=== PATIENT | male | born 1965 | race Caucasian/White ===

== ENCOUNTER 2017-03-29 02:08 | Emergency (ER) | payer MEDICARE, MEDICAID ==
--- NOTE | 2017-03-29 09:01 | RAD ---
RADIOGRAPH ABDOMEN 1 VIEW: Date: Time: 0519 hours HISTORY: 52-year-old male with diarrhea. COMPARISON: 03/15/17. FINDINGS: There is a large amount of bowel gas, especially throughout the nondilated colon. It is uncertain wh ether some of the air-filled bowel loops just to the left of midline represent small bowel loops sup erimposed on colon. It is unlikely that there is small bowel dilation. There is a slightly greater a mount of bowel gas on the current study compared to the previous. The stomach is decompressed on the current study, unlike the previous study. No other interval change. IMPRESSION: Nonspecific bowel gas pattern without evidence of obstruction. POS: [facility]
== END 2017-03-29 06:20 | disposition home or self-care (01) ==
LOC: ERS 02:08
DX: R19.5 Other fecal abnormalities (principal); E66.9 Obesity, unspecified; F17.210 Nicotine dependence, cigarettes, uncomplicated
CPT/HCPCS: 74000

== ENCOUNTER 2017-04-20 21:36 | Observation (INO) | payer MEDICARE, MEDICAID ==
[2017-04-20 22:25] LABS: Bilirubin Negative (Negative); Blood, Urine Negative (Negative); Glucose, Urine (Dipstick) Negative (Negative); Ketone, Urine Negative (Negative); Nitrite Positive (Negative); Protein, Urine (Dipstick) Negative (Neg-Trace)
[2017-04-20 22:27] LABS: Bacteria/HPF 1+ HPF (None Seen); Hyaline Casts/LPF 0-3 HYALINE CAST LPF (0-3 Hyaline); RBC/HPF None Seen HPF (0-3); Squamous Epithelial 0-3 HPF (0-3); WBC/HPF 21-50 HPF (0-3)
[2017-04-20 23:01] LABS: #Eosinphils 0.5 thou/uL (0.0-0.7); #Lymphocytes 1.7 thou/uL (1.20-3.40); %Basophils 0.4 % (0.0-1.0); %Eosinophils 4.7 % (0.0-10.0); %Lymphocytes 17.1 % (21.0-51.0); %Monocytes 9.4 % (0.0-10.0); Hematocrit 38.5 % (42.0-52.0); Mean Platelet Volume 6.4 fL (7.4-10.4); Red Blood Cell (RBC) Count 4.36 mill/uL (4.70-6.10); White Blood Cell (WBC) Count 10.2 thou/uL (4.8-10.8)
[2017-04-20 23:25] LABS: ALT (SGPT) 12 U/L (8-55); AST (SGOT) 13 U/L (5-34); Alkaline Phosphatase 73 U/L (40-150); Anion Gap 10 mmol/L (10-20); BUN (Urea Nitrogen) 12 mg/dL (8.4-25.7); Bilirubin, Total 0.5 mg/dL (0.2-1.2); Calc. Creatinine Clearance 0 mL/min (70-130); Calcium 8.9 mg/dL (7.8-10.44); Carbon Dioxide 29 mmol/L (22-29); Chloride 102 mmol/L (98-107); Estimated GFR-MDRD Greater than 90; Globulin 3.1 g/dL (2.4-3.5); Protein, Total 6.8 g/dL (6.0-8.3)
[2017-04-20 23:28] LABS: Troponin I Less than 0.010 ng/mL (< 0.028)
[2017-04-21] MEDS ORDERED: Regadenoson 0.4 MG/5 ML SYRINGE ONE (01:13)
[2017-04-21] MEDS ORDERED: cefTRIAXone\\ROCEPHIN 1 GM VIAL ONE (01:18)
[2017-04-21 01:37] LABS: Troponin I Less than 0.010 ng/mL (< 0.028)
[2017-04-21] MEDS ORDERED: Acetaminophen 325 MG TAB PO PRN (02:20)
[2017-04-21] MEDS ORDERED: Nitroglycerin 0.4 MG TAB (25 Tab Bottle) SL PRN (02:20)
[2017-04-21] MEDS ORDERED: Mag-Al 1200 mg/1200 mg/30 ML UDCUP PO PRN (02:20)
[2017-04-21] MEDS ORDERED: Loperamide HCl 2 MG CAP PO PRN (02:20)
[2017-04-21] MEDS ORDERED: Milk Of Magnesia 30 ML UDCUP PO PRN (02:20)
[2017-04-21] MEDS ORDERED: Loratadine 10 MG TAB PO PRN (02:20)
[2017-04-21] MEDS ORDERED: Zolpidem Tartrate 5 MG TAB PO PRN (02:20)
[2017-04-21] MEDS ORDERED: hydrALAZINE 20 MG/ML VIAL SLOW IVP PRN (02:20)
[2017-04-21] MEDS ORDERED: Ondansetron HCl/PF 4 MG/2 ML Vial IVP PRN (02:20)
[2017-04-21] MEDS ORDERED: Senokot 8.6 MG TAB PO PRN (02:20)
[2017-04-21] MEDS ORDERED: Eucerin (Mineral Oil/Petrolatum,White) 30 gm Jar TOP PRN (02:20)
[2017-04-21] MEDS ORDERED: Sodium Chloride 0.65% Nasal 44 ML BOT EA NARE PRN (02:20)
[2017-04-21] MEDS ORDERED: Diabetic Tussin 200 MG/10 ML UDCUP PO PRN (02:20)
[2017-04-21] MEDS ORDERED: Artificial Tears 18 DROP/0.9 ML EA EYE PRN (02:20)
[2017-04-21] MEDS ORDERED: Ondansetron ODT 4 MG TAB PO PRN (02:20)
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
[2017-04-21 03:01] VITALS: BMI 42.6
[2017-04-21 04:53] LABS: #Eosinphils 0.4 thou/uL (0.0-0.7); #Lymphocytes 1.5 thou/uL (1.20-3.40); #Monocytes 0.7 thou/uL (0.11-0.59); #Neutrophils 4.3 thou/uL (1.40-6.50); %Basophils 0.2 % (0.0-1.0); %Eosinophils 5.9 % (0.0-10.0); %Lymphocytes 21.7 % (21.0-51.0); %Monocytes 10.1 % (0.0-10.0); Hematocrit 35.8 % (42.0-52.0); Mean Platelet Volume 6.9 fL (7.4-10.4); Red Blood Cell (RBC) Count 4.06 mill/uL (4.70-6.10); White Blood Cell (WBC) Count 6.9 thou/uL (4.8-10.8)
[2017-04-21 05:09] LABS: Anion Gap 8 mmol/L (10-20); BUN (Urea Nitrogen) 10 mg/dL (8.4-25.7); Calc. Creatinine Clearance 236 mL/min (70-130); Calcium 8.6 mg/dL (7.8-10.44); Carbon Dioxide 33 mmol/L (22-29); Chloride 100 mmol/L (98-107); Estimated GFR-MDRD Greater than 90
[2017-04-21 05:13] LABS: Troponin I Less than 0.010 ng/mL (< 0.028)
--- NOTE | 2017-04-21 07:38 | CT ---
PRELIMINARY REPORT/[facility]/EMERGENCY AFTER HOURS PROCEDURE: EXAM: CT Angiography Chest With Intravenous Contrast CLINICAL HISTORY: 52 years old, male; Pain; Chest pain; Patient HX: Elevated d-dimer; M52 presented to ed C/O syncope episodes (4x) today, with the last episode being around 1700. Ems was called by pt's friend after "b lacking out. ". Pt reports feeling some cp and SOB with the dizzy episodes. Pt describes cp radiates to pt's r arm. Pt denies having symptoms previously. Pt reports he usually gets around by a wheelchair. Pt reports having normal bm's. TECHNIQUE: Axial computed tomographic angiography images of the chest with intravenous contrast using pulmonary embolism protocol. CONTRAST: 95 mL of ISOVUE 370 administered intravenously. COMPARISON: No relevant prior studies available. FINDINGS: Pulmonary arteries: No pulmonary embolism. Aorta: No acute findings. Lungs: Normal. Pleural space: Normal. No significant effusion. No pneumothorax. Heart: Atherosclerotic disease of the coronary arteries. Bones/joints: Multilevel thoracic spine degenerative changes. No acute fracture. No dislocation. Soft tissues: Normal. Lymph nodes: Normal. IMPRESSION: 1. No pulmonary embolism. 2. Incidental/non-acute findings are described above. Thank you for allowing us to participate in the care of your patient. Dictated and Authenticated by: Daniel Fagan MD 04/21/2017 1:15 AM Central Time ([place] \\T\\ [place]) FINAL REPORT CT PULMONARY ANGIOGRAM WITH IV CONTRAST AND 3D POSTPROCESSING: I agree with the preliminary report given by Dr. Daniel Fagan of [facility]. POS: [facility]
[2017-04-21] MEDS: HYDROcodone/Acetaminophen 5/325 mg Tablet PO PRN ×2 (09:11→16:16)
--- NOTE | 2017-04-21 09:25 | PDOC.EVN ---
Event Note - Event Note Event Note: Chart reviewed. Pt seen. Pt reports chest discomfort prior to syncopal episode. Discussed with pt re: need to rule out cardiac causes, pt agreeable for stress testing. Check 2D echo.
--- NOTE | 2017-04-21 12:49 | NM ---
CARDIAC SPECT: CLINICAL HISTORY: 52-year-old male with chest pain and hypertension. Smoker. TECHNIQUE: A stress-only myocardial perfusion scan was performed following the intravenous administration of 33 mCi technetium-99m sestamibi. Pharmacologic stress with Lexiscan was monitored and interpreted by Debby Schaefer. FINDINGS: Homogeneous tracer distribution is seen in the myocardial segments on the post stress images. GATED SPECT LVEF: 61%. WALL MOTION EXAM: Normal. IMPRESSION: Normal post stress myocardial perfusion scan. POS: [facility]
[2017-04-21] MEDS ORDERED: ISOVUE-370 76%-LOCM 1 ML ONE (12:59)
[2017-04-22] MEDS ORDERED: cefTRIAXone\\ROCEPHIN 1 GM, Admixture Fee 1 EACH in Sodium Chloride 0.9% 100 ML IVPB SCH (01:00)
[2017-04-22] MEDS ORDERED: Diphenoxylate HCl/Atropine Tablet PO PRN (08:33)
[2017-04-22] MEDS ORDERED: Fluticasone Propionate Nasal Spray 16 gm Bottle NASAL PRN ×2 (08:33→08:44)
[2017-04-22] MEDS ORDERED: Loratadine 10 MG TAB PO PRN (08:33)
--- NOTE | 2017-04-22 08:38 | PDOC.PN ---
- Subjective Encounter Start Date: 04/22/17 Encounter Start Time: 08:36 Mr. Lock does not have any complaints. He denies any chest pain this morning. He denies feeling dizzy or lightheaded. - Objective Resuscitation Status: Resuscitation Status FULL:Full Resuscitation MAR Reviewed: Yes Vital Signs & Weight: Vital Signs (12 hours) Temp Pulse Resp BP Pulse Ox 04/22/17 04:00 98.5 F 73 20 122/57 L 96 04/22/17 00:00 98.1 F 65 20 130/66 95 Weight Weight 323 lb 14.4 oz I&O: 04/21/17 04/22/17 04/23/17 06:59 06:59 06:59 Intake Total 240 2075 Output Total 1700 3000 Balance -1460 -925 Result Diagrams: 04/21/17 04:02 04/21/17 04:02 Phys Exam - Physical Examination HEENT: PERRLA Respiratory: no wheezing, no rales, no rhonchi, clear to auscultation bilateral Cardiovascular: RRR, no significant murmur, no rub Gastrointestinal: soft, non-tender, positive bowel sounds Musculoskeletal: edema present + erythema of his lower extremities, no warmth Dx/Plan (1) Syncope Code(s): R55 - SYNCOPE AND COLLAPSE Status: Acute (2) Hypertension Code(s): I10 - ESSENTIAL (PRIMARY) HYPERTENSION Status: Chronic (3) Morbid obesity with BMI of 40.0-44.9, adult Code(s): E66.01 - MORBID (SEVERE) OBESITY DUE TO EXCESS CALORIES; Z68.41 - BODY MASS INDEX (BMI) 40.0-44.9, ADULT Status: Chronic (4) Neurogenic bladder Code(s): N31.9 - NEUROMUSCULAR DYSFUNCTION OF BLADDER, UNSPECIFIED Status: Chronic (5) Paraplegia Code(s): G82.20 - PARAPLEGIA, UNSPECIFIED Status: Chronic (6) Venous insufficiency of both lower extremities Code(s): I87.2 - VENOUS INSUFFICIENCY (CHRONIC) (PERIPHERAL) Status: Chronic - Plan * Syncope- ? etiology probably from orhtostatic hypotension * Stress test and CTA were both negative * Still awaiting Echo results * Will check carotid dopplers * Home this evening if Echo and carotids are normal * Reconcile home medications .
[2017-04-22] MEDS ORDERED: Furosemide 80 MG TAB PO SCH ×2 (09:00)
[2017-04-22] MEDS ORDERED: Baclofen 10 MG TAB PO SCH (09:00)
[2017-04-22] MEDS ORDERED: Potassium Chloride 10 MEQ TAB PO SCH ×2 (09:00)
[2017-04-22] MEDS ORDERED: Spironolactone 25 MG TAB PO SCH ×2 (09:00)
[2017-04-22] MEDS ORDERED: BACLOFEN 10 MG PO SCH (09:00)
[2017-04-22] MEDS ORDERED: Lubiprostone 8 MCG CAP PO SCH ×2 (09:00)
[2017-04-22] MEDS ORDERED: Saccharomyces boulardii 250 MG CAP PO SCH (09:00)
[2017-04-22] MEDS ORDERED: Gabapentin 300 MG CAP PO SCH (09:00)
[2017-04-22] MEDS ORDERED: MAGNESIUM OXIDE PO SCH (09:00)
[2017-04-22] MEDS ORDERED: Magnesium Oxide 400 MG TAB PO SCH (09:00)
[2017-04-22 11:51] VITALS: BP 108/55; TEMP 97.3
[2017-04-22] MEDS: HYDROcodone/Acetaminophen 5/325 mg Tablet PO PRN (12:37)
--- NOTE | 2017-04-22 12:52 | ULT ---
BILATERAL CAROTID DUPLEX ULTRASOUND: History: Syncope. Technique: Grayscale, color flow, and spectral doppler imaging of the extracranial carotid arteries performed bilaterally. FINDINGS: No plaque formation is seen or significant intimal wall thickening is seen on either side. The peak systolic velocity in the right ICA measures 107 cm/sec and end diastolic velocity of 28 cm/ sec. ICA/CCA ratio is 0.9. The peak systolic velocity in the left ICA measures 85 cm/sec and end diastolic velocity of 19 cm/se c. ICA/CCA ratio is 0.78. Flow in both vertebral arteries is antegrade. IMPRESSION: No evidence of hemodynamically significant stenosis. POS: [facility]
[2017-04-22] MEDS ORDERED: Mirtazapine 30 MG TAB PO SCH ×2 (21:00)
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
--- NOTE | 2017-05-02 17:55 | EKG ---
Test Reason : Blood Pressure : / mmHG Vent. Rate : 070 BPM Atrial Rate : 070 BPM P-R Int : 156 ms QRS Dur : 156 ms QT Int : 428 ms P-R-T Axes : 036 -49 034 degrees QTc Int : 462 ms Normal sinus rhythm Right bundle branch block Left anterior fascicular block Bifascicular block Septal infarct , age undetermined Abnormal ECG Confirmed by DEE Storm, AIMEE ([id number]), photographic editor MARIANN NEGRETE ([id number]) on 05/02/2017 5:55:15 PM Referred By: Confirmed By:AIMEE PRICE M.D.
== END 2017-04-22 16:03 | disposition home or self-care (01) ==
LOC: ERS 21:36 → INTOOBSV 04-21 01:00 → 2NO 04-21 01:00
PROVIDERS: ADMIT Internal Medicine; ATTEND Internal Medicine
DX: R55 Syncope and collapse (principal); T14.8XXA Other injury of unspecified body region, initial encounter; G82.20 Paraplegia, unspecified; V89.2XXA Person injured in unspecified motor-vehicle accident, traffic, initial encounter; N31.9 Neuromuscular dysfunction of bladder, unspecified; I10 Essential (primary) hypertension; E66.01 Morbid (severe) obesity due to excess calories; I37.1 Nonrheumatic pulmonary valve insufficiency; I38 Endocarditis, valve unspecified; I87.2 Venous insufficiency (chronic) (peripheral); K21.9 Gastro-esophageal reflux disease without esophagitis; E53.8 Deficiency of other specified B group vitamins; E55.9 Vitamin D deficiency, unspecified; F41.9 Anxiety disorder, unspecified; F17.210 Nicotine dependence, cigarettes, uncomplicated; R07.9 Chest pain, unspecified; K59.09 Other constipation; G62.9 Polyneuropathy, unspecified; F31.9 Bipolar disorder, unspecified; Z68.41 Body mass index [BMI] 40.0-44.9, adult; Z79.899 Other long term (current) drug therapy; Z99.3 Dependence on wheelchair; Z96.0 Presence of urogenital implants; Z98.890 Other specified postprocedural states; Z87.440 Personal history of urinary (tract) infections; Z82.49 Family history of ischemic heart disease and other diseases of the circulatory system
CPT/HCPCS: 71275; 78452; 80048; 80053; 82553; 83880; 84484 ×3; 85025 ×2; 85379; 93005; 93017; 93306; 93880; 96361; 96365; 96366; 99285; A9500; G0378; 36415; 81003; 81015; A4216; J0696; J2785; J7050; Q0162

== ENCOUNTER 2017-05-12 18:07 | Emergency (ER) | payer MEDICARE, MEDICAID | END 2017-05-12 21:50 | LOC: ERS 18:07 | DX: T83.038A Leakage of other urinary catheter, initial encounter (principal); G82.20 Paraplegia, unspecified; F17.210 Nicotine dependence, cigarettes, uncomplicated | CPT/HCPCS: 99284 ==

== ENCOUNTER 2017-05-30 19:54 | Emergency (ER) | payer MEDICARE, MEDICAID ==
[2017-05-30 20:30] LABS: Bilirubin Negative (Negative); Blood, Urine Moderate (Negative); Glucose, Urine (Dipstick) Negative (Negative); Ketone, Urine Negative (Negative); Nitrite Positive (Negative); Protein, Urine (Dipstick) Negative (Neg-Trace)
[2017-05-30 20:33] LABS: Bacteria/HPF 4+ HPF (None Seen); Squamous Epithelial 0-3 HPF (0-3)
[2017-05-30 20:44] LABS: Hyaline Casts/LPF 0-3 HYALINE CAST LPF (0-3 Hyaline)
[2017-05-30 21:11] LABS: #Eosinphils 0.6 thou/uL (0.0-0.7); #Lymphocytes 1.9 thou/uL (1.20-3.40); #Monocytes 0.9 thou/uL (0.11-0.59); %Basophils 0.4 % (0.0-1.0); %Lymphocytes 22.9 % (21.0-51.0); %Monocytes 10.4 % (0.0-10.0); Hematocrit 39.3 % (42.0-52.0); Mean Platelet Volume 6.3 fL (7.4-10.4); Red Blood Cell (RBC) Count 4.35 mill/uL (4.70-6.10); White Blood Cell (WBC) Count 8.4 thou/uL (4.8-10.8)
[2017-05-30] MEDS ORDERED: cefTRIAXone\\ROCEPHIN 500 MG VIAL ONE ×2 (21:15→21:16)
[2017-05-30] MEDS ORDERED: Lidocaine 1% PF 5 ML VIAL ONE (21:15)
[2017-05-30 21:28] LABS: Lactic Acid - Sepsis 1.2 mmol/L (0.5-2.2)
[2017-05-30 21:32] LABS: ALT (SGPT) 11 U/L (8-55); AST (SGOT) 13 U/L (5-34); Alkaline Phosphatase 83 U/L (40-150); Anion Gap 11 mmol/L (10-20); BUN (Urea Nitrogen) 16 mg/dL (8.4-25.7); Bilirubin, Total 0.3 mg/dL (0.2-1.2); Calc. Creatinine Clearance 0 mL/min (70-130); Carbon Dioxide 28 mmol/L (22-29); Chloride 103 mmol/L (98-107); Estimated GFR-MDRD Greater than 90; Globulin 3.1 g/dL (2.4-3.5); Protein, Total 6.8 g/dL (6.0-8.3)
--- NOTE | 2017-05-30 22:35 | RAD ---
ACUTE ABDOMINAL SERIES 05/30/17 INDICATION: Constipation. COMPARISON: None. FINDINGS: The lungs are clear. There is mild cardiomegaly. No pleural effusion or pneumothorax is evident. Mario l gas pattern is nonspecific but without evidence of obstruction. There is a prominent amount of philly ined stool within the colon and rectum. There is scattered degenerative and osteoarthritic change. Th ere is mild thoracolumbar scoliosis. IMPRESSION: Prominent amount of retained stool. POS: [facility]
== END 2017-05-30 23:06 | disposition home or self-care (01) ==
LOC: ERS 19:54
DX: N39.0 Urinary tract infection, site not specified (principal); K59.00 Constipation, unspecified; E66.9 Obesity, unspecified; F17.210 Nicotine dependence, cigarettes, uncomplicated
CPT/HCPCS: 36415; 74022; 80053; 81003; 81015; 83605; 85025; 87077; 87086; 87186; 96372; J0696; J2001

== ENCOUNTER 2017-06-13 20:24 | Inpatient (IN) | payer MEDICARE, MEDICAID ==
--- NOTE | 2017-06-13 23:00 | RAD ---
RADIOGRAPH CHEST 1 VIEW: Date: 06/13/17 Time: 10:05 p.m. HISTORY: 52-year-old male with fever. COMPARISON: 05/30/17 FINDINGS: There is a subtle, small, patchy ill-defined nodular opacity measuring approximately 2 to 3 cm in siz e, at the left lower lung zone, close to the left hemidiaphragm, which was not present on the prior s tudy. The rest of the lungs are essentially clear. There is cardiomegaly without pulmonary edema. No pneumothorax. Lateral costophrenic angles are sharp. Upper lobe pulmonary vessels are prominent. IMPRESSION: 1. Cardiomegaly without pulmonary edema. 2. Small patchy nodular pulmonary opacity at the left base. This is nonspecific. There is a poss ibility that this could represent a small, very early pneumonia. Therefore, followup is recommended. RED [] POS: [facility]
[2017-06-13 23:22] LABS: #Eosinphils 0.6 thou/uL (0.0-0.7); #Lymphocytes 1.9 thou/uL (1.20-3.40); #Monocytes 0.9 thou/uL (0.11-0.59); #Neutrophils 4.8 thou/uL (1.40-6.50); %Basophils 0.3 % (0.0-1.0); %Lymphocytes 23.4 % (21.0-51.0); %Monocytes 10.4 % (0.0-10.0); Hematocrit 38.4 % (42.0-52.0); Mean Platelet Volume 6.4 fL (7.4-10.4); Red Blood Cell (RBC) Count 4.17 mill/uL (4.70-6.10); White Blood Cell (WBC) Count 8.2 thou/uL (4.8-10.8)
[2017-06-13 23:27] LABS: Lactic Acid - Sepsis 1.1 mmol/L (0.5-2.2)
[2017-06-13 23:31] LABS: ALT (SGPT) 12 U/L (8-55); AST (SGOT) 12 U/L (5-34); Alkaline Phosphatase 78 U/L (40-150); Anion Gap 11 mmol/L (10-20); BUN (Urea Nitrogen) 16 mg/dL (8.4-25.7); Bilirubin, Total 0.3 mg/dL (0.2-1.2); Calc. Creatinine Clearance 0 mL/min (70-130); Calcium 8.7 mg/dL (7.8-10.44); Carbon Dioxide 30 mmol/L (22-29); Chloride 104 mmol/L (98-107); Estimated GFR-MDRD Greater than 90; Lipase 32 U/L (8-78); Protein, Total 6.6 g/dL (6.0-8.3)
[2017-06-13] MEDS ORDERED: Ondansetron HCl/PF 4 MG/2 ML Vial ONE (23:41)
[2017-06-13] MEDS ORDERED: Morphine 4 MG/ML VIAL ONE (23:41)
[2017-06-13] MEDS ORDERED: Piperacillin/Tazobactam 4.5 GM in Sodium Chloride 0.9% 100 ML IVPB SCH (23:45)
[2017-06-14] MEDS ORDERED: Ondansetron HCl/PF 4 MG/2 ML Vial IVP PRN (00:07)
--- NOTE | 2017-06-14 00:07 | PDOC.EVN ---
Event Note - Event Note Event Note: [id number] H&p Dictated 1. Scrotal cellulitis 2. HTN 3. H/O Depreesion and anxiety plan: see orders
[2017-06-14 05:13] VITALS: BMI 38.5
[2017-06-14 05:31] LABS: Anion Gap 9 mmol/L (10-20); BUN (Urea Nitrogen) 14 mg/dL (8.4-25.7); Calc. Creatinine Clearance 225 mL/min (70-130); Calcium 8.2 mg/dL (7.8-10.44); Carbon Dioxide 28 mmol/L (22-29); Chloride 105 mmol/L (98-107); Estimated GFR-MDRD Greater than 90
[2017-06-14 05:34] LABS: #Eosinphils 0.7 thou/uL (0.0-0.7); #Lymphocytes 1.9 thou/uL (1.20-3.40); #Monocytes 0.8 thou/uL (0.11-0.59); #Neutrophils 5.1 thou/uL (1.40-6.50); %Basophils 0.4 % (0.0-1.0); %Eosinophils 8.2 % (0.0-10.0); %Lymphocytes 22.1 % (21.0-51.0); Hematocrit 35.7 % (42.0-52.0); Mean Platelet Volume 6.7 fL (7.4-10.4); Red Blood Cell (RBC) Count 3.85 mill/uL (4.70-6.10); White Blood Cell (WBC) Count 8.4 thou/uL (4.8-10.8)
[2017-06-14] MEDS ORDERED: Vancomycin HCl 1.75 GM in Sodium Chloride 0.9% 500 ML IVPB SCH (06:00)
[2017-06-14] MEDS ORDERED: Piperacillin/Tazobactam 3.375 GM in Sodium Chloride 0.9% 100 ML IVPB SCH (06:00)
--- NOTE | 2017-06-14 07:40 | HP ---
DATE OF ADMISSION: 06/13/2017 CHIEF COMPLAINT: Scrotal pain. HISTORY OF PRESENT ILLNESS: The patient is a 52-year-old male with past medical history of chronic s uprapubic catheter, morbid obesity, chronic lymphedema, neurogenic bladder, hypertension, GERD, chron ic paraplegia, now came to the ER because of scrotal pain. The patient stated he started having pain a few days back. Scrotal pain is burning kind of pain, 6/10, no aggravating or alleviating factors. There is some redness on the scrotal area. Denies any fever, denies any chills. Pain persisted, so he came to the ER. The patient also states he has chronic suprapubic catheter. Denies any chest pain, denies any trouble breathing, denies nausea, denies vomiting, denies diarrhea. PAST MEDICAL HISTORY: Hernia repair, suprapubic catheter, cystoscopy. PAST SURGICAL HISTORY: As above. MEDICATIONS: Reviewed. ALLERGIES: No known drug allergies. FAMILY HISTORY: Positive for GA. SOCIAL HISTORY: Denies smoking at this time. Denies alcohol, occasional smoking. Denies any drugs. REVIEW OF SYSTEMS: Constitutional: Denies any fever, denies any chills. Eyes: Denies any vision p roblems. Ears: Denies any hearing problems. Neck: Denies any neck pain. Cardiovascular System: Denies any chest pain, denies any palpitations. Respiratory System: Denies any cough, denies sputum production. Gastrointestinal: Denies any nausea, vomiting. Genitourinary: Positive for suprapubic catheter, positive for scrotal pain. Integumentary: Positiv e for scrotal erythema. Musculoskeletal: Positive for bilateral lower extremity edema. All other r eview of systems are reviewed and are negative. PHYSICAL EXAMINATION: CONSTITUTIONAL/VITAL SIGNS: At the time of H&P performed, blood pressure is 130/70, afebrile, pulse ox 97%. GENERAL: The patient appears tired. HEENT: Anterior nares patent. Nose normal. Ears normal. Teeth intact. Tongue is moist. NECK: Supple, no JVD. CARDIOVASCULAR SYSTEM: S1, S2 present. Regular rate and rhythm. No murmurs, no rubs, no gallops. RESPIRATORY SYSTEM: No wheezing, no rhonchi. Breath sounds present bilaterally. GASTROINTESTINAL: Abdomen is distended, soft, nontender, no guarding, no organomegaly, no masses fel t. MUSCULOSKELETAL: Bilateral lower extremities 3+ pitting edema present. Chronic lymphedema. GENITOURINARY: Possible scrotal erythema. Positive for redness present. Positive for suprapubic ca theter. PSYCHIATRIC: Mood is calm at this time. LABORATORY DATA: At the time of H&P performed, white count 8.2, hemoglobin 12.3, platelet count 261. BMP shows sodium 141, potassium 4.4, chloride 104, CO2 30, BUN 16 creatinine 0.7, glucose 109. ASSESSMENT AND PLAN: The patient is a 52-year-old male: 1. Scrotal cellulitis appears superficial. We will go ahead and get an ultrasound of the scrotum. We will consult Urology to evaluate the patient. We will follow the patient closely. 2. Urinary tract infection with chronic indwelling suprapubic catheter. Urine appears cloudy. We w ill go ahead and send urinalysis and urine culture and sensitivity. We will continue IV antibiotics and we will follow the patient closely. 3. History of hypertension, monitor blood pressures, continue home blood pressure medications. 4. History of depression and anxiety. P.r.n. anxiolytics. 5. Chronic lymphedema. Continue wound care. The case was discussed in detail with the patient.
[2017-06-14] MEDS: Famotidine 20 MG TAB PO SCH ×2 (09:09→20:34)
[2017-06-14] MEDS: Piperacillin/Tazobactam 3.375 GM in Sodium Chloride 0.9% 100 ML IVPB SCH ×3 (09:09→20:34)
[2017-06-14] MEDS: Heparin 5,000 UNITS/ML VIAL SC SCH ×3 (09:09→20:35)
--- NOTE | 2017-06-14 10:05 | ULT ---
SCROTAL ULTRASOUND: INDICATION: Bilateral scrotal pain and swelling. COMPARISON: Prior exam dated 05/04/17. TECHNIQUE: Schaefer scale, color Doppler, vascular duplex, and spectral analysis was performed of the scrotum. FINDINGS: The right testicle measures 4.9 x 3.8 x 3.2 cm. No intratesticular mass, hydrocele or torsion is dem onstrated. The left testicle measures 4.5 x 3.3 x 2.7 cm. No intratesticular mass, hydrocele, or torsion is dem onstrated. The epididymi appear within normal limits. There are small epididymal head cysts bilaterally. The l argest on the right measures 7 mm. The largest on the left measures 3 mm. IMPRESSION: No evidence of torsion or intratesticular mass. POS: [facility]
--- NOTE | 2017-06-14 14:15 | PDOC.EVN ---
Event Note - Event Note Event Note: Chart reviewed. Pt seen. Feels slightly better. Urine cultures growing gram negative organisms, await identification and sensitivities, continue IV antibiotics.
[2017-06-14] MEDS: Meropenem 2 GM, Admixture Fee 1 EACH in Sodium Chloride 0.9% 100 ML IVPB SCH ×2 (15:54→22:22)
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
[2017-06-14] MEDS: Acetaminophen 325 MG TAB PO PRN (20:35)
[2017-06-15] MEDS: Piperacillin/Tazobactam 3.375 GM in Sodium Chloride 0.9% 100 ML IVPB SCH ×2 (02:57→07:59)
[2017-06-15 04:49] LABS: #Eosinphils 0.6 thou/uL (0.0-0.7); #Lymphocytes 1.9 thou/uL (1.20-3.40); #Monocytes 0.7 thou/uL (0.11-0.59); %Basophils 0.4 % (0.0-1.0); %Lymphocytes 26.1 % (21.0-51.0); Hematocrit 36.2 % (42.0-52.0); Mean Platelet Volume 6.5 fL (7.4-10.4); Red Blood Cell (RBC) Count 3.94 mill/uL (4.70-6.10); White Blood Cell (WBC) Count 7.2 thou/uL (4.8-10.8)
[2017-06-15 05:02] LABS: Anion Gap 10 mmol/L (10-20); BUN (Urea Nitrogen) 14 mg/dL (8.4-25.7); Calc. Creatinine Clearance 203 mL/min (70-130); Calcium 8.6 mg/dL (7.8-10.44); Carbon Dioxide 29 mmol/L (22-29); Chloride 103 mmol/L (98-107); Estimated GFR-MDRD Greater than 90
[2017-06-15] MEDS: Meropenem 2 GM, Admixture Fee 1 EACH in Sodium Chloride 0.9% 100 ML IVPB SCH (05:37)
[2017-06-15] MEDS: Acetaminophen 325 MG TAB PO PRN ×3 (05:44→22:14)
[2017-06-15] MEDS: Famotidine 20 MG TAB PO SCH ×2 (07:57→20:14)
[2017-06-15] MEDS: Heparin 5,000 UNITS/ML VIAL SC SCH ×3 (07:57→20:15)
--- NOTE | 2017-06-15 08:42 | PRG ---
DATE OF SERVICE: 06/15/2017 SUBJECTIVE: The patient without complaints, doing well. No significant scrotal discomfort this morn ing. OBJECTIVE: VITAL SIGNS: Stable, 98.2, 76, 96, 117/70. I's and O's are 3950 out, one bowel movement. ABDOMEN: Soft, obese, protuberant. Suprapubic tube in place, it is not adequately secured as I left it. I discussed with nurses regarding proper securing of his suprapubic tube using statlocks. LABORATORY DATA: White count 7.2, hemoglobin 11, platelets 234, creatinine 0.82. Repeat urine cultu re is pending thus far. IMPRESSION AND PLAN: Mr. Olsen is a 52-year-old morbidly obese male with history of neurogenic blad gosia, history of C-spine injury with chronic SP tube. His suprapubic tube was changed last month. I will need to defer his surveillance cystoscopy as he has symptomatic urinary tract infection. He is doing well on meropenem. Await Infectious Disease consult for outpatient antibiotic regimen. Patien t is clinically stable. From a urologic perspective, may be discharged when cleared by Infectious Di sameer with appropriate antibiotics based on recent urine culture and sensitivity. We will provide followup appointment accordingly.
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
--- NOTE | 2017-06-15 15:04 | PDOC.PN ---
- Subjective Encounter Start Date: 06/15/17 Encounter Start Time: 15:02 Pt seen for followup re: UTI. Denies fevers or chest pain. - Objective Vital Signs & Weight: Vital Signs (12 hours) Temp Pulse Resp BP Pulse Ox 06/15/17 13:06 98.1 F 64 18 124/81 95 06/15/17 08:44 98.3 F 66 18 136/77 92 L 06/15/17 08:00 98.3 F 66 18 96 Weight Admit Weight 299 lb 13.248 oz Weight 299 lb 13.248 oz I&O: 06/14/17 06/15/17 06/16/17 06:59 06:59 06:59 Intake Total 1120 Output Total 3950 Balance -2830 Result Diagrams: 06/15/17 04:20 06/15/17 04:20 Phys Exam - Physical Examination Obese HEENT: moist MMs Neck: supple Respiratory: clear to auscultation bilateral Cardiovascular: RRR Gastrointestinal: soft suprapubic catheter; scrotal swelling Neurological: moves all 4 limbs Psychiatric: normal affect Skin: no rash Dx/Plan (1) UTI (urinary tract infection) Status: Acute (2) GERD (gastroesophageal reflux disease) Code(s): K21.9 - GASTRO-ESOPHAGEAL REFLUX DISEASE WITHOUT ESOPHAGITIS Status: Chronic (3) Hypertension Code(s): I10 - ESSENTIAL (PRIMARY) HYPERTENSION Status: Chronic (4) Neurogenic bladder Code(s): N31.9 - NEUROMUSCULAR DYSFUNCTION OF BLADDER, UNSPECIFIED Status: Chronic (5) Paraplegia Code(s): G82.20 - PARAPLEGIA, UNSPECIFIED Status: Chronic (6) Cellulitis Code(s): L03.90 - CELLULITIS, UNSPECIFIED Status: Resolved - Plan * . Appreciate ID service input. Likely colonization, antibiotics discontinued. Likely discharge tomorrow. Monitor vital signs, titrate antihypertensives as needed. Review of Systems - Review of Systems Constitutional: negative: Fever, Chills, Sweats, Weakness, Malaise Cardiovascular: negative: Chest Pain, Palpitations, Orthopnea, Paroxysmal Noc. Dyspnea, Edema, Light Headedness - Medications/Allergies Allergies/Adverse Reactions: Allergies Allergy/AdvReac Type Severity Reaction Status Date / Time No Known Allergies Allergy Verified 04/21/17 02:56 Medications: Current Medications Acetaminophen (Tylenol) 650 mg PO Q4H PRN PRN Reason: Headache/Fever or Pain Last Admin: 06/15/17 05:44 Dose: 650 mg Famotidine (Pepcid) 20 mg PO BID [facility] Last Admin: 06/15/17 07:57 Dose: 20 mg Heparin Sodium (Porcine) (Heparin) 5,000 units SC TID [facility] Last Admin: 06/15/17 07:57 Dose: 5,000 units Mirabegron (Myrbetriq Er) 50 mg PO DAILY [facility] Last Admin: 06/15/17 09:13 Dose: 50 mg Ondansetron HCl (Zofran) 4 mg IVP Q6H PRN PRN Reason: Nausea/Vomiting Last Admin: 06/14/17 22:22 Dose: 4 mg Sodium Chloride (Flush - Normal Saline) 10 ml IVF Q12HR [facility] Last Admin: 06/15/17 07:58 Dose: 10 ml Sodium Chloride (Flush - Normal Saline) 10 ml IVF PRN PRN PRN Reason: Saline Flush
--- NOTE | 2017-06-15 19:46 | ADD-PRG ---
DATE OF SERVICE: 06/15/2017 INPATIENT PROGRESS NOTE ADDENDUM The patient was seen this morning, Infectious Disease consult noted. No antibiotics necessary per Dr Gabriel Soto. He has been cleared to be discharged home. As such, I did exchange suprapubic tube at the bedside to a new 28 Nigerian 30 mL, with 35 mL insufflated into the balloon. Urine output is clear, di lute yellow. The patient has been provided a followup appointment with for 6 week interval suprap ubic tube exchange. He was scheduled for elective surveillance cystoscopy due to chronic SP tube in end of May, however, I will defer, and reassess as he presents with symptomatic UTI. The patien t verbalizes understanding. May discharge at any time per standpoint. We will sign off. If any questions or concerns, please do not hesitate to contact me.
[2017-06-16] MEDS ORDERED: Lidocaine 2% Viscous Solution 10 ML, Aluminum & Magnesium Hydroxide 30 ML SSW SCH ×2 (04:00)
[2017-06-16 04:41] LABS: #Eosinphils 0.4 thou/uL (0.0-0.7); #Lymphocytes 1.6 thou/uL (1.20-3.40); #Monocytes 0.7 thou/uL (0.11-0.59); %Basophils 0.4 % (0.0-1.0); %Eosinophils 6.3 % (0.0-10.0); %Lymphocytes 23.6 % (21.0-51.0); %Monocytes 9.9 % (0.0-10.0); Hematocrit 38.1 % (42.0-52.0); Mean Platelet Volume 6.5 fL (7.4-10.4); Red Blood Cell (RBC) Count 4.18 mill/uL (4.70-6.10); White Blood Cell (WBC) Count 6.8 thou/uL (4.8-10.8)
[2017-06-16 04:52] LABS: Anion Gap 10 mmol/L (10-20); BUN (Urea Nitrogen) 11 mg/dL (8.4-25.7); Calc. Creatinine Clearance 216 mL/min (70-130); Calcium 9.4 mg/dL (7.8-10.44); Carbon Dioxide 31 mmol/L (22-29); Chloride 100 mmol/L (98-107); Estimated GFR-MDRD Greater than 90
[2017-06-16] MEDS: Acetaminophen 325 MG TAB PO PRN (08:40)
[2017-06-16] MEDS: Heparin 5,000 UNITS/ML VIAL SC SCH ×2 (08:43→15:42)
[2017-06-16] MEDS: Famotidine 20 MG TAB PO SCH (08:43)
[2017-06-16 08:53] VITALS: BP 150/86; TEMP 98.6
--- NOTE | 2017-06-16 11:43 | PDOC.PN ---
- Subjective Encounter Start Date: 06/16/17 Encounter Start Time: 11:30 Subjective: Patient with improved scrotal pain, now just a little sore. Swelling -: improved. No other complaints. - Objective MAR Reviewed: Yes Vital Signs & Weight: Vital Signs (12 hours) Temp Pulse Resp BP Pulse Ox 06/16/17 08:52 98.6 F 66 20 150/86 H 96 06/16/17 07:00 97.9 F 60 20 Weight Admit Weight 299 lb 13.248 oz Weight 299 lb 13.248 oz I&O: 06/15/17 06/16/17 06/17/17 06:59 06:59 06:59 Intake Total 1120 2640 Output Total 3950 6800 Balance -2830 -4160 Result Diagrams: 06/16/17 04:00 06/16/17 04:00 Phys Exam - Physical Examination Constitutional: NAD HEENT: moist MMs Respiratory: no wheezing, no rales, no rhonchi Cardiovascular: RRR, no significant murmur Gastrointestinal: soft, positive bowel sounds no movment in lower extremities, difficulty moving upper ext. Psychiatric: normal affect, A&O x 3 Deviation from normal: scrotum without redness or warmth, no rash, no tense swelling Dx/Plan (1) Testicular pain Code(s): N50.819 - TESTICULAR PAIN, UNSPECIFIED Status: Resolved (2) Neurogenic bladder Code(s): N31.9 - NEUROMUSCULAR DYSFUNCTION OF BLADDER, UNSPECIFIED Status: Chronic (3) Paraplegia Code(s): G82.20 - PARAPLEGIA, UNSPECIFIED Status: Chronic (4) Suprapubic catheter Code(s): Z93.59 - OTHER CYSTOSTOMY STATUS Status: Chronic - Plan cont current plan of care No abx needed per ID, Discharge today * . - Discharge Day Encounter end time: 12:00
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
== END 2017-06-16 16:32 | disposition home health service (06) | DRG 729 ==
LOC: ERS 20:24 → T4-A 06-14
PROVIDERS: ADMIT Internal Medicine; ATTEND Internal Medicine
PROC: 0T2BX0Z Change Drainage Device in Bladder, External Approach (ICD-10-PCS; principal; 2017-06-15)
DX: N50.819 Testicular pain, unspecified (principal); G82.20 Paraplegia, unspecified; N31.9 Neuromuscular dysfunction of bladder, unspecified; S14.104S Unspecified injury at C4 level of cervical spinal cord, sequela; E66.01 Morbid (severe) obesity due to excess calories; Z22.39 Carrier of other specified bacterial diseases; I10 Essential (primary) hypertension; Z93.51 Cutaneous-vesicostomy status; N35.9 Urethral stricture, unspecified; F41.8 Other specified anxiety disorders; I89.0 Lymphedema, not elsewhere classified; K21.9 Gastro-esophageal reflux disease without esophagitis; F17.210 Nicotine dependence, cigarettes, uncomplicated; I87.2 Venous insufficiency (chronic) (peripheral); D64.9 Anemia, unspecified
CPT/HCPCS: 36415; 71010; 76870; 80048; 80053; 83605; 83690; 85025; 87040; 87077; 87086; 93976; 96365; 96375; A4216; J1644; J2185; J2270; J2405; J2543; J3370; J7050

== ENCOUNTER 2017-06-23 10:02 | Emergency (ER) | payer MEDICARE, MEDICAID | END 2017-06-23 11:45 | disposition home or self-care (01) | LOC: ERS 10:02 | DX: T83.83XA Hemorrhage due to genitourinary prosthetic devices, implants and grafts, initial encounter (principal); E66.9 Obesity, unspecified; F17.210 Nicotine dependence, cigarettes, uncomplicated | CPT/HCPCS: 99284 ==

== ENCOUNTER 2017-07-07 23:01 | Emergency (ER) | payer MEDICARE, MEDICAID ==
--- NOTE | 2017-07-07 23:50 | RAD ---
PORTABLE CHEST ONE VIEW 07/07/17 at 11:33 p.m. HISTORY: Chest pain. FINDINGS: Comparison made with exam of 06/13/17. The heart size is enlarged. No focal areas of consolidation, pneumothorax, brenda pulmonary edema or p leural effusions are seen. There is gaseous distention of the stomach. IMPRESSION: No acute process. POS: [facility]
[2017-07-08 00:28] LABS: #Basophils 0.1 thou/uL (0.0-0.2); #Eosinphils 0.6 thou/uL (0.0-0.7); #Lymphocytes 1.8 thou/uL (1.20-3.40); %Basophils 0.7 % (0.0-1.0); %Eosinophils 7.3 % (0.0-10.0); %Lymphocytes 21.3 % (21.0-51.0); %Monocytes 11.6 % (0.0-10.0); %Neutrophils 59.2 % (42.0-75.0); Hemoglobin 12.5 g/dL (14.0-18.0); Mean Corpuscular HGB CONC 31.9 g/dL (32.0-36.0); Mean Corpuscular Hemoglobin 28.9 pg (27.0-31.0); Mean Corpuscular Volume 90.6 fl (80.0-94.0); Mean Platelet Volume 6.2 fL (7.4-10.4); Platelet Count 266 thou/uL (130-400); RBC Distribution Width 13.3 % (11.5-14.5); Red Blood Cell (RBC) Count 4.32 mill/uL (4.70-6.10); White Blood Cell (WBC) Count 8.5 thou/uL (4.8-10.8)
[2017-07-08 00:52] LABS: ALT (SGPT) 14 U/L (8-55); AST (SGOT) 14 U/L (5-34); Albumin 3.8 g/dL (3.5-5.0); Alkaline Phosphatase 86 U/L (40-150); Anion Gap 14 mmol/L (10-20); BUN (Urea Nitrogen) 21 mg/dL (8.4-25.7); Bilirubin, Total 0.2 mg/dL (0.2-1.2); Calc. Creatinine Clearance 0 mL/min (70-130); Calcium 9.5 mg/dL (7.8-10.44); Carbon Dioxide 28 mmol/L (22-29); Chloride 101 mmol/L (98-107); Estimated GFR-MDRD 89; Globulin 3.2 g/dL (2.4-3.5); Glucose 134 mg/dL (70-105); Potassium 4.4 mmol/L (3.5-5.1); Sodium 139 mmol/L (136-145)
[2017-07-08 00:57] LABS: CKMB 1.2 ng/mL (0-6.6); Troponin I Less than 0.010 ng/mL (< 0.028)
[2017-07-08 05:29] LABS: CKMB 1.1 ng/mL (0-6.6)
[2017-07-08 06:35] LABS: Troponin I Less than 0.010 ng/mL (< 0.028)
--- NOTE | 2017-07-08 08:23 | CT ---
PRELIMINARY REPORT/[facility]/EMERGENCY AFTER HOURS PROCEDURE: EXAM: CT Angiography Chest With Intravenous Contrast CLINICAL HISTORY: 52 years old, male; Signs and symptoms; Dyspnea and shortness of breath; Patient HX: R/O pe TECHNIQUE: Axial computed tomographic angiography images of the chest with intravenous contrast using pulmonary embolism protocol. CONTRAST: 100 mL of ISOVUE administered intravenously. COMPARISON: No relevant prior studies available. FINDINGS: Pulmonary arteries: Limited evaluation due to due poor bolus timing Aorta: No acute findings. No thoracic aortic aneurysm. Lungs: No mass. No consolidation. Pleural space: Unremarkable. No significant effusion. No pneumothorax. Heart: Coronary calcifications No cardiomegaly. No significant pericardial effusion. No evidence of R V dysfunction. Bones/joints: No acute fracture. No dislocation. Soft tissues: Unremarkable. Lymph nodes: Unremarkable. No enlarged lymph nodes. IMPRESSION: Limited evaluation for pulmonary emboli due to poor bolus timing No aortic dissection Coronary artery disease Thank you for allowing us to participate in the care of your patient. Dictated and Authenticated by: Jefferson Guzman MD 07/08/2017 4:13 AM Central Time ([place] & [place]) FINAL REPORT EMERGENT AFTER HOURS CT PULMONARY ANGIOGRAM WITH IV CONTRAST AND 3D MIP RECONSTRUCTIONS: IMPRESSION: Comparison is made with the study dated 04/21/17. Agree with the preliminary interpretation given by [facility]. Nondiagnostic evaluation for pulmonary emboli. POS: [facility]
[2017-07-08] MEDS ORDERED: ISOVUE-370 76%-LOCM 1 ML ONE (15:38)
--- NOTE | 2017-07-25 17:49 | EKG ---
Test Reason : CP Blood Pressure : / mmHG Vent. Rate : 064 BPM Atrial Rate : 064 BPM P-R Int : 162 ms QRS Dur : 158 ms QT Int : 434 ms P-R-T Axes : 055 -46 042 degrees QTc Int : 447 ms Normal sinus rhythm Right bundle branch block Left anterior fascicular block Bifascicular block Abnormal ECG Confirmed by MILLY UPTON D.O. ([id number]), make up editor MARIANN NEGRETE ([id number]) on 07/25/2017 5:48:00 PM Referred By: ZAIDA Confirmed By:MILLY UPTON D.O.
--- NOTE | 2017-08-08 21:26 | EKG ---
Test Reason : CHEST PAIN Blood Pressure : / mmHG Vent. Rate : 081 BPM Atrial Rate : 081 BPM P-R Int : 152 ms QRS Dur : 160 ms QT Int : 416 ms P-R-T Axes : 031 -49 035 degrees QTc Int : 483 ms Normal sinus rhythm Possible Left atrial enlargement Right bundle branch block Left anterior fascicular block Bifascicular block Lateral infarct , age undetermined Abnormal ECG Confirmed by AIMEE PRICE M.D. ([id number]), field map editor MARIANN NEGRETE ([id number]) on 08/08/2017 9:25:43 PM Referred By: Confirmed By:AIMEE PRICE M.D.
== END 2017-07-08 06:14 | disposition home or self-care (01) ==
LOC: ERS 23:01
DX: R07.9 Chest pain, unspecified (principal); N28.9 Disorder of kidney and ureter, unspecified; F17.210 Nicotine dependence, cigarettes, uncomplicated; Z79.899 Other long term (current) drug therapy
CPT/HCPCS: 36415; 71045; 71275; 80053; 82553; 83880; 84484; 85025; 85379; 93005; 96360; 96361

== ENCOUNTER 2017-07-10 09:37 | Emergency (ER) | payer MEDICARE, MEDICAID ==
[2017-07-10] MEDS ORDERED: Bacitracin Zinc 1 Packet ONE (10:27)
== END 2017-07-10 13:15 | disposition home or self-care (01) ==
LOC: ERS 09:37
DX: S81.811A Laceration without foreign body, right lower leg, initial encounter (principal); M79.662 Pain in left lower leg; M79.661 Pain in right lower leg; G89.29 Other chronic pain; F17.210 Nicotine dependence, cigarettes, uncomplicated; Z79.899 Other long term (current) drug therapy; Z71.6 Tobacco abuse counseling; X58.XXXA Exposure to other specified factors, initial encounter
CPT/HCPCS: 99406

== ENCOUNTER 2017-07-23 08:53 | Emergency (ER) | payer MEDICARE, MEDICAID | END 2017-07-23 11:33 | disposition home or self-care (01) | LOC: ERS 08:53 | DX: R19.7 Diarrhea, unspecified (principal); E66.9 Obesity, unspecified; Z79.899 Other long term (current) drug therapy | CPT/HCPCS: 99283 ==

== ENCOUNTER 2017-07-25 16:19 | Emergency (ER) | payer MEDICARE, MEDICAID ==
--- NOTE | 2017-07-25 17:39 | RAD ---
ONE VIEW CHEST 07/25/17 COMPARISON: 07/07/17 HISTORY: Chest pain. Patient has clogged urinary Rowan catheter. FINDINGS: Cardiomegaly. Pulmonary vessels and hilum are normal. Costophrenic angles are clear. No mass. No cons olidation. No pneumothorax or osseous abnormalities. IMPRESSION: Cardiomegaly. No acute cardiopulmonary process. POS: [facility]
[2017-07-25 18:17] LABS: #Basophils 0.1 thou/uL (0.0-0.2); #Eosinphils 0.6 thou/uL (0.0-0.7); #Lymphocytes 1.5 thou/uL (1.20-3.40); #Monocytes 0.9 thou/uL (0.11-0.59); #Neutrophils 9.9 thou/uL (1.40-6.50); %Basophils 0.4 % (0.0-1.0); %Eosinophils 4.5 % (0.0-10.0); %Lymphocytes 11.8 % (21.0-51.0); %Monocytes 6.6 % (0.0-10.0); %Neutrophils 76.8 % (42.0-75.0); Hemoglobin 15.3 g/dL (14.0-18.0); Mean Corpuscular HGB CONC 32.2 g/dL (32.0-36.0); Mean Corpuscular Hemoglobin 29.4 pg (27.0-31.0); Mean Corpuscular Volume 91.4 fl (80.0-94.0); Mean Platelet Volume 6.9 fL (7.4-10.4); Platelet Count 279 thou/uL (130-400); RBC Distribution Width 13.4 % (11.5-14.5); Red Blood Cell (RBC) Count 5.19 mill/uL (4.70-6.10); White Blood Cell (WBC) Count 12.9 thou/uL (4.8-10.8)
[2017-07-25 18:34] LABS: Anion Gap 16 mmol/L (10-20); BUN (Urea Nitrogen) 19 mg/dL (8.4-25.7); Calc. Creatinine Clearance 0 mL/min (70-130); Calcium 9.9 mg/dL (7.8-10.44); Carbon Dioxide 26 mmol/L (22-29); Chloride 103 mmol/L (98-107); Estimated GFR-MDRD Greater than 90; Glucose 102 mg/dL (70-105); Potassium 4.5 mmol/L (3.5-5.1); Sodium 140 mmol/L (136-145)
[2017-07-25 18:46] LABS: Troponin I Less than 0.010 ng/mL (< 0.028)
[2017-07-25 19:21] LABS: Bilirubin Negative (Negative); Blood, Urine Negative (Negative); Clarity TURBID (Clear); Glucose, Urine (Dipstick) 100 mg/dL (Negative); Leukocyte Large (Negative); Nitrite Negative (Negative); Protein, Urine (Dipstick) 300 mg/dL (Neg-Trace); Specific Gravity, Urine 1.016 (1.002-1.036); pH, Urine 8.5 (5.0-9.0)
[2017-07-25 19:23] LABS: Bacteria/HPF 4+ HPF (None Seen)
[2017-07-25 19:28] LABS: Pathc Cast-AUWi Flag 63.97 (0-2.49)
[2017-07-25 19:36] LABS: Crystals/HPF 3+ TRIPLE PHOS HPF (Negative); Hyaline Casts/LPF 0-3 HYALINE CAST LPF (0-3 Hyaline); Other Casts/LPF None Seen LPF (0-3 Hyaline); RBC/HPF 0-3 HPF (0-3); Renal Epithelial None Seen HPF (0-3); Squamous Epithelial 0-3 HPF (0-3); Transitional Epithelial NONE SEEN HPF (0-3)
== END 2017-07-25 21:57 | disposition home or self-care (01) ==
LOC: ERS 16:19
DX: T83.098A Other mechanical complication of other urinary catheter, initial encounter (principal); R03.0 Elevated blood-pressure reading, without diagnosis of hypertension; Z79.899 Other long term (current) drug therapy
CPT/HCPCS: 36415; 51102; 71045; 80048; 81003; 81015; 84484; 85025; 87077; 87086; 87186; 93005

== ENCOUNTER 2017-07-31 01:55 | Inpatient (IN) | payer MEDICARE, MEDICAID ==
[2017-07-31 03:54] LABS: ALT (SGPT) 11 U/L (8-55); AST (SGOT) 12 U/L (5-34); Albumin 3.8 g/dL (3.5-5.0); Alkaline Phosphatase 80 U/L (40-150); Anion Gap 13 mmol/L (10-20); BUN (Urea Nitrogen) 17 mg/dL (8.4-25.7); Bilirubin, Total 0.6 mg/dL (0.2-1.2); Calc. Creatinine Clearance 0 mL/min (70-130); Carbon Dioxide 26 mmol/L (22-29); Chloride 103 mmol/L (98-107); Estimated GFR-MDRD Greater than 90; Globulin 3.2 g/dL (2.4-3.5); Glucose 151 mg/dL (70-105); Potassium 3.8 mmol/L (3.5-5.1); Sodium 138 mmol/L (136-145)
[2017-07-31 04:01] LABS: Bilirubin Negative (Negative); Blood, Urine Small (Negative); Glucose, Urine (Dipstick) Negative (Negative); Leukocyte Large (Negative); Nitrite Negative (Negative); Protein, Urine (Dipstick) 100 mg/dL (Neg-Trace); pH, Urine 8.5 (5.0-9.0)
[2017-07-31 04:08] LABS: Clarity Cloudy (Clear)
[2017-07-31 04:10] LABS: RBC/HPF 0-3 HPF (0-3)
[2017-07-31 04:11] LABS: Bacteria/HPF 4+ HPF (None Seen); Crystals/HPF 1+ TRIPLE PHOS HPF (Negative)
[2017-07-31 04:16] LABS: #Basophils 0.1 thou/uL (0.0-0.2); #Eosinphils 0.5 thou/uL (0.0-0.7); #Lymphocytes 1.5 thou/uL (1.20-3.40); #Monocytes 1.3 thou/uL (0.11-0.59); #Neutrophils 9.6 thou/uL (1.40-6.50); %Basophils 0.4 % (0.0-1.0); %Eosinophils 3.7 % (0.0-10.0); %Lymphocytes 11.6 % (21.0-51.0); %Monocytes 9.8 % (0.0-10.0); %Neutrophils 74.4 % (42.0-75.0); Hemoglobin 12.4 g/dL (14.0-18.0); Mean Corpuscular HGB CONC 32.2 g/dL (32.0-36.0); Mean Corpuscular Volume 90.3 fl (80.0-94.0); Platelet Count 265 thou/uL (130-400); RBC Distribution Width 13.1 % (11.5-14.5); Red Blood Cell (RBC) Count 4.27 mill/uL (4.70-6.10); White Blood Cell (WBC) Count 12.8 thou/uL (4.8-10.8)
[2017-07-31] MEDS ORDERED: Sodium Chloride 0.9% 1,000 ML IV SCH (06:25)
[2017-07-31] MEDS ORDERED: Ondansetron HCl/PF 4 MG/2 ML Vial IVP PRN ×2 (06:25→10:18)
[2017-07-31] MEDS ORDERED: Ondansetron ODT 4 MG TAB SL PRN (06:25)
[2017-07-31 08:37] VITALS: BMI 36.3
[2017-07-31] MEDS ORDERED: FLU VACC QS2017-18 36 mo. & older 0.5 ML SYRINGE IM ONE (09:00)
[2017-07-31] MEDS ORDERED: Bisacodyl 5 MG TAB PO PRN (10:18)
[2017-07-31] MEDS ORDERED: Acetaminophen 650 MG Suppository PR PRN (10:18)
[2017-07-31] MEDS ORDERED: Ondansetron ODT 4 MG TAB PO PRN (10:18)
[2017-07-31] MEDS ORDERED: Chloraseptic Spray 180 ml Bottle PO PRN (10:38)
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
[2017-07-31] MEDS: Benzonatate 100 MG CAP PO PRN (17:01)
[2017-07-31] MEDS: Famotidine 20 MG TAB PO SCH (20:22)
[2017-07-31] MEDS: Guaifenesin DM 100-10/5 ML UDCUP PO PRN (23:54)
[2017-08-01] MEDS ORDERED: HYDROcodone/Acetaminophen 5/325 mg Tablet PO SCH (03:45)
[2017-08-01 04:11] LABS: #Eosinphils 0.4 thou/uL (0.0-0.7); #Neutrophils 7.6 thou/uL (1.40-6.50); %Basophils 0.2 % (0.0-1.0); %Eosinophils 3.7 % (0.0-10.0); %Lymphocytes 10.1 % (21.0-51.0); %Monocytes 10.1 % (0.0-10.0); %Neutrophils 75.9 % (42.0-75.0); Hemoglobin 11.4 g/dL (14.0-18.0); Mean Corpuscular HGB CONC 32.9 g/dL (32.0-36.0); Mean Corpuscular Hemoglobin 29.7 pg (27.0-31.0); Mean Corpuscular Volume 90.3 fl (80.0-94.0); Mean Platelet Volume 6.7 fL (7.4-10.4); Platelet Count 246 thou/uL (130-400); Red Blood Cell (RBC) Count 3.84 mill/uL (4.70-6.10)
[2017-08-01 04:22] LABS: Anion Gap 11 mmol/L (10-20); BUN (Urea Nitrogen) 11 mg/dL (8.4-25.7); Calc. Creatinine Clearance 212 mL/min (70-130); Calcium 8.5 mg/dL (7.8-10.44); Carbon Dioxide 28 mmol/L (22-29); Chloride 103 mmol/L (98-107); Estimated GFR-MDRD Greater than 90; Glucose 130 mg/dL (70-105); Potassium 4.2 mmol/L (3.5-5.1); Sodium 138 mmol/L (136-145)
[2017-08-01 04:27] LABS: Troponin I 0.023 ng/mL (< 0.028)
--- NOTE | 2017-08-01 08:19 | ULT ---
DATE OF PROCEDURE: 07/31/2017 ARTERIAL ULTRASOUND Bilateral lower extremity arterial ultrasound was performed. On the right, waveforms are biphasic an d normally peaked throughout. Ankle brachial index is 0.91. On the left, waveforms are biphasic and normally peaked throughout. Ankle brachial index is 0.96. IMPRESSION: Normal arterial ultrasound. POS: [facility]
[2017-08-01] MEDS: Famotidine 20 MG TAB PO SCH ×2 (08:50→20:38)
[2017-08-01] MEDS ORDERED: Enoxaparin Sodium 40 MG/0.4 ML SYRINGE SC SCH (09:00)
[2017-08-01] MEDS: Benzonatate 100 MG CAP PO PRN (09:01)
[2017-08-01] MEDS: Guaifenesin DM 100-10/5 ML UDCUP PO PRN ×2 (13:02→20:38)
--- NOTE | 2017-08-01 16:31 | PDOC.PN ---
- Subjective Encounter Start Date: 08/01/17 Encounter Start Time: 16:28 cc: DIARRHEA Sub: Pt c/o weakness and some loose stools - Objective Resuscitation Status: Resuscitation Status FULL:Full Resuscitation Vital Signs & Weight: Vital Signs (12 hours) Temp Pulse Resp BP Pulse Ox 08/01/17 07:05 99.7 F H 77 20 131/80 91 L Weight Admit Weight 275 lb Weight 275 lb I&O: 07/31/17 08/01/17 08/02/17 06:59 06:59 06:59 Intake Total 2580 Output Total 5650 Balance -3070 Result Diagrams: 08/01/17 03:46 08/01/17 03:46 Phys Exam - Physical Examination Constitutional: NAD HEENT: moist MMs Neck: no JVD Respiratory: no wheezing, no rales, no rhonchi diminished at bases Cardiovascular: RRR, no significant murmur, no rub Gastrointestinal: soft distended, no guarding, no rebound tendernes Musculoskeletal: no edema Neurological: non-focal positive paraplegia Psychiatric: normal affect Skin: no rash Dx/Plan - Plan Pt is 52 yrs old male now admitted to hospital due to weakness 1. Acute diarrhea: Will start empirically flagyl 500mg iv q8hrs stool for cdiff pending 2. UTI + R/O Bacteremia: Blodo culture positive for non hemolytic streptococcus and urine culture positive for proteus mirabalis Will start IV rocephin 1gm q 24hrs. Consult ID to evaluate patient/ 3. Generalized weakness + H/O paraplegia: Monitor patient will consult PT & OT to evalaute patient 4. DVT prophylaxis: Lovenox 40mg subq daily case d/w pt & RN
[2017-08-01] MEDS: cefTRIAXone\\ROCEPHIN 2 GM in Sodium Chloride 0.9% 100 ML IVPB SCH (17:27)
[2017-08-01] MEDS: Baclofen 10 MG TAB PO SCH (20:37)
[2017-08-01] MEDS: Gabapentin 300 MG CAP PO SCH (20:37)
[2017-08-01] MEDS: metroNIDAZOLE 500 MG in Premix Bag 1 BAG IVPB SCH (21:57)
[2017-08-01] MEDS: Acetaminophen 325 MG TAB PO PRN (23:07)
[2017-08-02] MEDS: Acetaminophen 325 MG TAB PO PRN ×2 (04:15→16:37)
[2017-08-02] MEDS: metroNIDAZOLE 500 MG in Premix Bag 1 BAG IVPB SCH ×3 (05:51→20:25)
[2017-08-02] MEDS: Baclofen 10 MG TAB PO SCH ×3 (07:59→20:24)
[2017-08-02] MEDS: Guaifenesin DM 100-10/5 ML UDCUP PO PRN ×2 (07:59→20:29)
[2017-08-02] MEDS: Spironolactone 25 MG TAB PO SCH (08:00)
[2017-08-02] MEDS: Famotidine 20 MG TAB PO SCH ×2 (08:00→20:24)
[2017-08-02] MEDS: Gabapentin 300 MG CAP PO SCH ×3 (08:00→20:24)
[2017-08-02] MEDS: Enoxaparin Sodium 40 MG/0.4 ML SYRINGE SC SCH (08:01)
--- NOTE | 2017-08-02 10:46 | PDOC.PN ---
- Subjective Encounter Start Date: 08/02/17 Encounter Start Time: 16:01 CC: Weakness sub: Pt denies nausea or vomiting - Objective Resuscitation Status: Resuscitation Status FULL:Full Resuscitation Vital Signs & Weight: Vital Signs (12 hours) Temp Pulse Resp BP Pulse Ox 08/02/17 06:56 98.5 F 65 16 143/83 H 96 08/02/17 00:46 98.0 F 81 20 164/83 H 93 L Weight Admit Weight 275 lb Weight 275 lb I&O: 08/01/17 08/02/17 08/03/17 06:59 06:59 06:59 Intake Total 2580 Output Total 5650 2750 Balance -3070 -2750 Result Diagrams: 08/02/17 10:57 08/02/17 10:57 Dx/Plan - Plan Physical Examination Constitutional: NAD HEENT: moist MMs Neck: no JVD Respiratory: no wheezing, no rales, no rhonchi diminished at bases Cardiovascular: RRR, no significant murmur, no rub Gastrointestinal: soft distended, no guarding, no rebound tendernes Musculoskeletal: no edema Neurological: non-focal, speech clear, follows commands positive paraplegia Psychiatric: normal affect Skin: no rash Dx/Plan Pt is 52 yrs old male now admitted to hospital due to weakness 1. Acute diarrhea: Continue flagyl 500mg iv q8hrs stool for cdiff negative 2. UTI + Enterococcus Bacteremia: Continue IV rocephin for uti and will add zyvox 600mg q12hrs for enterococcus Will wait for IT input 3. Generalized weakness + H/O paraplegia: Monitor patient PT & OT to evalaute patient 4. DVT prophylaxis: Lovenox 40mg subq daily 5. Dispo: SNF vs home case d/w pt & RN
[2017-08-02 11:07] LABS: #Eosinphils 0.4 thou/uL (0.0-0.7); #Lymphocytes 1.3 thou/uL (1.20-3.40); #Monocytes 0.9 thou/uL (0.11-0.59); #Neutrophils 5.3 thou/uL (1.40-6.50); %Basophils 0.5 % (0.0-1.0); %Eosinophils 5.2 % (0.0-10.0); %Lymphocytes 16.4 % (21.0-51.0); %Monocytes 11.5 % (0.0-10.0); %Neutrophils 66.5 % (42.0-75.0); Hemoglobin 11.3 g/dL (14.0-18.0); Mean Corpuscular HGB CONC 31.5 g/dL (32.0-36.0); Mean Corpuscular Hemoglobin 28.9 pg (27.0-31.0); Mean Corpuscular Volume 91.4 fl (80.0-94.0); Mean Platelet Volume 6.3 fL (7.4-10.4); Platelet Count 249 thou/uL (130-400); RBC Distribution Width 12.8 % (11.5-14.5); Red Blood Cell (RBC) Count 3.92 mill/uL (4.70-6.10)
[2017-08-02 11:28] LABS: Anion Gap 11 mmol/L (10-20); BUN (Urea Nitrogen) 9 mg/dL (8.4-25.7); Calc. Creatinine Clearance 206 mL/min (70-130); Calcium 8.7 mg/dL (7.8-10.44); Carbon Dioxide 31 mmol/L (22-29); Chloride 102 mmol/L (98-107); Estimated GFR-MDRD Greater than 90; Glucose 122 mg/dL (70-105); Potassium 4.1 mmol/L (3.5-5.1); Sodium 140 mmol/L (136-145)
[2017-08-02] MEDS: cefTRIAXone\\ROCEPHIN 2 GM in Sodium Chloride 0.9% 100 ML IVPB SCH (16:33)
[2017-08-02] MEDS: Linezolid 600 MG in Premix Bag 1 BAG IVPB SCH (20:23)
[2017-08-03] MEDS: Guaifenesin DM 100-10/5 ML UDCUP PO PRN ×4 (04:39→22:31)
[2017-08-03] MEDS: metroNIDAZOLE 500 MG in Premix Bag 1 BAG IVPB SCH ×3 (04:40→20:08)
[2017-08-03 05:12] LABS: #Eosinphils 0.5 thou/uL (0.0-0.7); #Lymphocytes 1.3 thou/uL (1.20-3.40); #Neutrophils 6.4 thou/uL (1.40-6.50); %Basophils 0.5 % (0.0-1.0); %Eosinophils 5.5 % (0.0-10.0); %Lymphocytes 14.2 % (21.0-51.0); %Monocytes 10.3 % (0.0-10.0); %Neutrophils 69.5 % (42.0-75.0); Hemoglobin 11.7 g/dL (14.0-18.0); Mean Corpuscular HGB CONC 31.9 g/dL (32.0-36.0); Mean Corpuscular Hemoglobin 28.9 pg (27.0-31.0); Mean Corpuscular Volume 90.6 fl (80.0-94.0); Mean Platelet Volume 6.7 fL (7.4-10.4); Platelet Count 281 thou/uL (130-400); RBC Distribution Width 12.8 % (11.5-14.5); Red Blood Cell (RBC) Count 4.04 mill/uL (4.70-6.10); White Blood Cell (WBC) Count 9.2 thou/uL (4.8-10.8)
[2017-08-03 05:39] LABS: Anion Gap 12 mmol/L (10-20); BUN (Urea Nitrogen) 13 mg/dL (8.4-25.7); Calc. Creatinine Clearance 188 mL/min (70-130); Calcium 8.7 mg/dL (7.8-10.44); Carbon Dioxide 28 mmol/L (22-29); Chloride 101 mmol/L (98-107); Estimated GFR-MDRD Greater than 90; Glucose 118 mg/dL (70-105); Potassium 4.4 mmol/L (3.5-5.1); Sodium 137 mmol/L (136-145)
[2017-08-03] MEDS: Gabapentin 300 MG CAP PO SCH ×3 (09:20→20:07)
[2017-08-03] MEDS: Famotidine 20 MG TAB PO SCH ×2 (09:20→20:07)
[2017-08-03] MEDS: Baclofen 10 MG TAB PO SCH ×3 (09:20→20:07)
[2017-08-03] MEDS: Spironolactone 25 MG TAB PO SCH (09:20)
[2017-08-03] MEDS: Linezolid 600 MG in Premix Bag 1 BAG IVPB SCH ×2 (09:21→20:07)
[2017-08-03] MEDS: Enoxaparin Sodium 40 MG/0.4 ML SYRINGE SC SCH (09:23)
--- NOTE | 2017-08-03 12:59 | PDOC.PN ---
- Subjective Encounter Start Date: 08/03/17 Encounter Start Time: 13:05 Subjective: No complaints today, diarrhea resolvomg. Only one BM overnight -: Reports participating in PT - Objective Resuscitation Status: Resuscitation Status FULL:Full Resuscitation MAR Reviewed: Yes Vital Signs & Weight: Vital Signs (12 hours) Temp Pulse Resp BP Pulse Ox 08/03/17 09:27 135/63 08/03/17 08:00 98.0 F 70 18 162/91 H 96 Weight Admit Weight 275 lb Weight 275 lb I&O: 08/02/17 08/03/17 08/04/17 06:59 06:59 06:59 Intake Total 2220 Output Total 2750 1560 Balance -2750 660 Result Diagrams: 08/03/17 04:46 08/03/17 04:46 Phys Exam - Physical Examination Constitutional: NAD HEENT: PERRLA, moist MMs, sclera anicteric Neck: supple, full ROM Respiratory: no wheezing, no rales, no rhonchi, clear to auscultation bilateral Cardiovascular: RRR, no significant murmur, no rub Gastrointestinal: soft, non-tender, no distention, positive bowel sounds Musculoskeletal: no edema, pulses present Neurological: non-focal paraplegis, chronic Psychiatric: normal affect, A&O x 3 Skin: no rash, normal turgor Dx/Plan (1) Bacteremia due to Enterococcus Code(s): R78.81 - BACTEREMIA; B95.2 - ENTEROCOCCUS THE CAUSE OF DISEASES CLASSIFIED ELSEWHERE Status: Acute Plan: Repeat blood culture Comment: Improved. Lyons sensitive. On Linezolid, Flagyl and Ceftriaxone (2) Acute diarrhea Code(s): R19.7 - DIARRHEA, UNSPECIFIED Status: Acute Plan: Only one BM overnight. Continue current antibiotics. Comment: Resolved. C Diff negative. (3) Physical deconditioning Code(s): R53.81 - OTHER MALAISE Status: Acute Comment: PT/OT on board. (4) UTI (urinary tract infection) Status: Acute Qualifiers: Urinary tract infection type: acute cystitis Hematuria presence: without hematuria Qualified Code(s): N30.00 - Acute cystitis without hematuria (5) Paraplegia Code(s): G82.20 - PARAPLEGIA, UNSPECIFIED Status: Chronic Comment: PT/OT. Likely would need placement this admission. CM on board. (6) Hypertension Code(s): I10 - ESSENTIAL (PRIMARY) HYPERTENSION Status: Chronic Qualifiers: Hypertension type: essential hypertension Qualified Code(s): I10 - Essential (primary) hypertension Plan: Monitor BP. PRN hydralazine. Comment: Only med on list in Spironolactone. - Plan cont current plan of care, continue antibiotics, PT/OT, social services counselor, DVT proph w/lovenox d/c to custodial unit * .
[2017-08-03] MEDS ORDERED: hydrALAZINE 20 MG/ML VIAL SLOW IVP PRN (13:03)
[2017-08-03] MEDS: cefTRIAXone\\ROCEPHIN 2 GM in Sodium Chloride 0.9% 100 ML IVPB SCH (15:55)
[2017-08-03] MEDS: Acetaminophen 325 MG TAB PO PRN (18:17)
[2017-08-03] MEDS: Benzonatate 100 MG CAP PO PRN (20:15)
[2017-08-04 05:11] LABS: #Basophils 0.1 thou/uL (0.0-0.2); #Eosinphils 0.5 thou/uL (0.0-0.7); #Lymphocytes 1.5 thou/uL (1.20-3.40); #Monocytes 0.8 thou/uL (0.11-0.59); #Neutrophils 4.8 thou/uL (1.40-6.50); %Basophils 0.9 % (0.0-1.0); %Eosinophils 6.2 % (0.0-10.0); %Lymphocytes 20.3 % (21.0-51.0); %Monocytes 10.1 % (0.0-10.0); %Neutrophils 62.5 % (42.0-75.0); Hemoglobin 11.7 g/dL (14.0-18.0); Mean Corpuscular Volume 90.9 fl (80.0-94.0); Mean Platelet Volume 6.4 fL (7.4-10.4); Platelet Count 276 thou/uL (130-400); RBC Distribution Width 12.7 % (11.5-14.5); Red Blood Cell (RBC) Count 4.04 mill/uL (4.70-6.10); White Blood Cell (WBC) Count 7.6 thou/uL (4.8-10.8)
[2017-08-04 05:34] LABS: Anion Gap 11 mmol/L (10-20); BUN (Urea Nitrogen) 13 mg/dL (8.4-25.7); Calc. Creatinine Clearance 186 mL/min (70-130); Calcium 8.8 mg/dL (7.8-10.44); Carbon Dioxide 30 mmol/L (22-29); Chloride 101 mmol/L (98-107); Estimated GFR-MDRD Greater than 90; Glucose 151 mg/dL (70-105); Potassium 3.9 mmol/L (3.5-5.1); Sodium 138 mmol/L (136-145)
[2017-08-04] MEDS: metroNIDAZOLE 500 MG in Premix Bag 1 BAG IVPB SCH ×2 (05:55→14:00)
[2017-08-04 08:23] VITALS: BP 143/87; TEMP 97.7
[2017-08-04] MEDS: Spironolactone 25 MG TAB PO SCH (08:24)
[2017-08-04] MEDS: Gabapentin 300 MG CAP PO SCH ×2 (08:24→15:15)
[2017-08-04] MEDS: Baclofen 10 MG TAB PO SCH ×2 (08:24→15:15)
[2017-08-04] MEDS: Enoxaparin Sodium 40 MG/0.4 ML SYRINGE SC SCH (08:24)
[2017-08-04] MEDS: Linezolid 600 MG in Premix Bag 1 BAG IVPB SCH (09:15)
[2017-08-04] MEDS: Famotidine 20 MG TAB PO SCH (09:15)
--- NOTE | 2017-08-05 02:42 | DIS ---
DATE OF ADMISSION: 07/31/2017 DATE OF DISCHARGE: 08/04/2017 DISCHARGE DIAGNOSES: Acute diarrhea, upper respiratory tract infection, dehydration and generalized weakness. SECONDARY DIAGNOSES: Hypertension, paraplegia, bacteremia secondary to enterococcus, acute diarrhea, physical deconditioning, urinary tract infection. CONDITION AT DISCHARGE: Stable and improved. HISTORY OF PRESENT ILLNESS AND HOSPITAL COURSE: Mr. Raúl Lock is a 52-year-old male with a h istory of paraplegia from previous spinal injury who lives in [facility], typically ge ts up to wheelchair by himself and he is mobile in that way. He reported for the past 3 days before he presented, he had a cough, congestion, sore throat and diarrhea. Diarrhea was about 3-4 times per day. He is unable to characterize it beyond that and complete of some abdominal cramping before the diarrhea. He also reports of progressive weakness, said he slid out of his bed at night while he wa s trying to get to the bathroom. Although he states this happens regularly about once every 1-2 ana hs, he did not injure himself at that time. He is chronically on antibiotics and is concerned in the emergency room by possible Clostridium difficile diarrhea as well as dehydration due to diarrhea and not being able to keep up with oral fluids in the assisted living. While in hospital, his diarrhea improved. C. diff toxins were negative. He was started on antibiotics, metronidazole, ceftriaxone a nd linezolid. Blood cultures grew Enterococcus and urine cultures grew Proteus mirabilis. Enterococ cus was pansensitive and procedures were sensitive to most medication apart from ampicillin, nitrofur antoin and Bactrim. He improved before discharge with IV hydration for physical deconditioning. PT/ OT assessed the patient. [facility] to [facility]. DISCHARGE MEDICATIONS: Cephalexin 2250 mg oral twice a day, guaifenesin 10 mL orally every 4 hours a s needed for cough, metronidazole 500 mg every 8 hours, spironolactone 1 tablet daily, mirtazapine 1 tablet oral at bedtime, magnesium oxide 1 tablet oral daily, furosemide 1 tablet oral daily, Amitiza 1 tablet oral twice a day, potassium chloride 10 mEq daily, Flonase nasal spray 2 sprays in each anita s daily as needed, loratadine 10 mg oral daily as needed, gabapentin 300 mg oral 3 times daily, panto prazole 40 mg oral daily, mirabegron 50 mg oral daily, Baclofen 10 mg oral 3 times a day, Lomotil 2 t abs oral 4 times a day as needed for diarrhea/loose stools, Florastor 250 mg daily. PHYSICAL EXAMINATION: GENERAL: He was examined on day of discharge. VITAL SIGNS: Temperature 97.7 degrees Fahrenheit, pulse 66, respiratory rate 16, oxygen saturation 9 3% on room air, blood pressure 143/87. LABORATORY DATA: WBC 7.6, hemoglobin 11.7, platelets 276. Sodium 138, potassium 3.9, chloride 101, bicarbonate 30, BUN 13, creatinine 0.82. IMAGING: Arterial ultrasound of bilateral lower extremity arterial ultrasound was performed which wa s normal. CONSULTS: None. PROCEDURES: None. DIET: Heart healthy. CARE GOALS: He is to follow up with the primary care physician within 1 week of discharge for repeat labs, instructed to take his medications as prescribed and return to the emergency room if he develo ps a fever, shortness of breath, chest pain, dizziness or loss of consciousness. Discharge time, 65 minutes including chart review and dictation.
--- NOTE | 2017-08-10 18:14 | PQF ---
SHANTEL SEN OMEGA JAYRO AGUIAR [id number] CLINICAL DOCUMENTATION CLARIFICATION FORM: POST DISCHARGE Addendum to original discharge summary date: 08/17/2017 Late entry note date: __ DATE: 08/10/2017 ATTN: DR. AGUIAR Please exercise your independent, professional judgment in responding to the clarification form. Clinical indicators are provided on the bottom of this form for your review Please check appropriate box(s): [x ] UTI please specify if due to or related to (as applicable): [ ] Indwelling catheter [ ] Self-catheterization [ x] Suprapubic catheter [ ] Unable to determine etiology UTI Site: [ ] Kidney [ ] Ureter [ ] Bladder [ ] Urethra [x ] Unable to determine Specify Organism (if known):____ENTEROCOCCUS [ ] Unknown organism [ ] Contaminated urine specimen without UTI [ ] Other diagnosis [ ] Unable to determine In addition, please specify: Present on Admission (POA): [x ] Yes [ ] No [ ] Unable to determine For continuity of documentation, please document condition throughout progress notes and discharge summary. Thank You. CLINICAL INDICATORS - SIGNS / SYMPTOMS / LABS: LAB: WBC - 7-10, SQUAMOUS AND 4+ BACTERIA H&P: PATIENT HAS SUPRAPUBIC CATHETER IN PLACE, MONTHLY CHANGE-OUTS BY DR. BARBOSA 08/01 PN: UTI + R/O BACTEREMIA: BLOOD CULTURE POSITIVE FOR NON HEMOLYTIC STREPTOCOCCUS AND URINE CULTURE POSITIVE FOR PROTEUS MIRABALIS 08/02 PN: UTI + ENTEROCOCCUS BACTEREMIA: CONTINUE IV ROCEPHIN FOR UTI AND WILL ADD ZYVOX 600MG FOR ENTEROCOCCUS 08/03 PN: UTI: ACUTE CYSTITIS WITHOUT HEMATURIA DS: BACTEREMIA SECONDARY TO ENTEROCOCCUS RISK FACTORS: SUPRAPUBIC CATHETER Debility / skilled nursing resident TREATMENT: Antibiotics IVF (This form is maintained as a part of the permanent medical record) 2014 [employer]. All Rights Reserved Sarah Beth Duncan CCS, [facility] [email or web address] [phone] MTDD
--- NOTE | 2017-09-28 22:01 | EKG ---
Test Reason : Blood Pressure : / mmHG Vent. Rate : 085 BPM Atrial Rate : 085 BPM P-R Int : 166 ms QRS Dur : 158 ms QT Int : 386 ms P-R-T Axes : 045 -50 041 degrees QTc Int : 459 ms Normal sinus rhythm Right bundle branch block Left anterior fascicular block Bifascicular block Lateral infarct , age undetermined Abnormal ECG Confirmed by LISA MACDONALD M.D. ([id number]) on 09/28/2017 10:01:39 PM Referred By: BINDU Confirmed By:LISA MACDONALD M.D.
== END 2017-08-04 15:06 | DRG 699 ==
LOC: ERS 01:55 → T4-B 04:35
PROVIDERS: ADMIT Internal Medicine Addiction Medicine; ATTEND Internal Medicine Addiction Medicine
DX: N99.511 Cystostomy infection (principal); G82.20 Paraplegia, unspecified; E66.01 Morbid (severe) obesity due to excess calories; N30.00 Acute cystitis without hematuria; E86.0 Dehydration; R19.7 Diarrhea, unspecified; J06.9 Acute upper respiratory infection, unspecified; I10 Essential (primary) hypertension; B95.2 Enterococcus as the cause of diseases classified elsewhere; N31.9 Neuromuscular dysfunction of bladder, unspecified; K21.9 Gastro-esophageal reflux disease without esophagitis; F41.9 Anxiety disorder, unspecified; F32.9 Major depressive disorder, single episode, unspecified; T14.8XXS Other injury of unspecified body region, sequela; V89.2XXS Person injured in unspecified motor-vehicle accident, traffic, sequela; F17.210 Nicotine dependence, cigarettes, uncomplicated; Z68.36 Body mass index [BMI] 36.0-36.9, adult; Y84.6 Urinary catheterization as the cause of abnormal reaction of the patient, or of later complication, without mention of misadventure at the time of the procedure
CPT/HCPCS: 36415; 51710; 80048; 80053; 81003; 81015; 83605; 84484; 85025; 87040; 87077; 87081; 87086; 87149; 87186; 87324; 87430; 87449; 87804; 93005; 93010; 93922; 96360; 96361; 99213; A4216; G0463; G8978-GP-CM; G8979-GP-CL; G8987-GO-CL; G8988-GO-CJ; J0696; J1650; J2020; J7050

== ENCOUNTER 2017-10-13 09:28 | Outpatient (CLI) | payer MEDICAID, MEDICARE ==
--- NOTE | 2017-10-13 11:48 | ULT ---
ABDOMINAL ULTRASOUND: History: Abdominal pain. Comparison: None. FINDINGS: Pancreas is poorly seen. Increased hepatic echotexture. Liver measures 18 cm in length, increased in size. Portal vein is patent with antegrade flow. The gallbladder is distended although the wall thickness i s normal. No cholelithiasis is appreciated. The right kidney measures 9.2 x 4.8 x 4.3 cm and the left kidney me asures 11.1 x 5.9 x 5.5 cm. No renal mass, hydronephrosis or abnormal calcifications. The spleen is e nlarged measuring 14 cm. Aorta and IVC are poorly visualized. The sonographic Buenrostro sign was unable to be obtained. Common bi le duct is poorly seen while it measures approximately 5 mm. IMPRESSION: 1. Hepatomegaly with increased hepatic echotexture suggesting steatosis. 2. Distended gallbladder without cholelithiasis or wall thickening. 3. Splenomegaly. POS: [facility]
== END 2017-10-13 09:29 | disposition home or self-care (01) ==
LOC: ULT 09:28 → EDSTATUS 10:00
PROVIDERS: ATTEND Family Medicine
DX: R10.9 Unspecified abdominal pain (principal); K82.8 Other specified diseases of gallbladder; R16.2 Hepatomegaly with splenomegaly, not elsewhere classified
CPT/HCPCS: 76700

== ENCOUNTER 2018-07-28 09:47 | Outpatient (CLI) | payer MEDICARE, MEDICAID ==
--- NOTE | 2018-07-28 11:06 | ULT ---
RENAL SONOGRAM: HISTORY: Neurogenic bladder. Reflux nephropathy. FINDINGS: The right kidney is 13.5 cm and the left is 13.6 cm. There is mild thinning of the cortex of each ki dney. A 1.8 cm cortical cyst involves the medial portion of the left kidney. No hydronephrosis. Th e urinary bladder contains a suprapubic catheter. IMPRESSION: 1. Small left renal cyst. No evidence of upper urinary tract obstruction. 2. Suprapubic bladder catheter in place. POS: [facility]
--- NOTE | 2018-07-28 11:24 | RAD ---
KUB: INDICATION: History of renal stones. COMPARISON: Prior acute abdominal series dated 05/30/2017. FINDINGS: Lung bases are clear. The bowel gas pattern is unobstructed. No definite suspicious calcification i s evident. There is scattered degenerative change. There is a moderate amount of retained stool wit hin the colon. IMPRESSION: 1. No definite suspicious calcification demonstrate within the abdomen or pelvis. 2. The bowel gas pattern is unobstructed. 3. There is a moderate amount of retained stool within the colon. POS: [facility]
== END 2018-07-28 09:48 | disposition home or self-care (01) ==
LOC: SCSULT 09:47
PROVIDERS: ATTEND Urology
DX: Z43.5 Encounter for attention to cystostomy (principal); N31.1 Reflex neuropathic bladder, not elsewhere classified; Q61.01 Congenital single renal cyst; N35.919 Unspecified urethral stricture, male, unspecified site; K59.00 Constipation, unspecified
CPT/HCPCS: 74018; 76770

== ENCOUNTER 2018-09-19 22:47 | Emergency (ER) | payer MEDICARE, MEDICAID ==
[2018-09-19 23:20] LABS: #Basophils 0.1 thou/uL (0.0-0.2); #Eosinphils 0.4 thou/uL (0.0-0.7); #Lymphocytes 1.8 thou/uL (1.20-3.40); #Monocytes 0.9 thou/uL (0.11-0.59); #Neutrophils 9.8 thou/uL (1.40-6.50); %Basophils 0.5 % (0.0-1.0); %Eosinophils 3.2 % (0.0-10.0); %Lymphocytes 14.1 % (21.0-51.0); %Neutrophils 75.2 % (42.0-75.0); Hemoglobin 12.7 g/dL (14.0-18.0); Mean Corpuscular HGB CONC 32.1 g/dL (32.0-36.0); Mean Corpuscular Hemoglobin 28.4 pg (27.0-31.0); Mean Corpuscular Volume 88.4 fL (78.0-98.0); Mean Platelet Volume 6.9 fL (7.4-10.4); Platelet Count 264 thou/uL (130-400); Red Blood Cell (RBC) Count 4.49 mill/uL (4.70-6.10)
[2018-09-19 23:33] LABS: Bilirubin Negative (Negative); Blood, Urine Large (Negative); Clarity CLOUDY (Clear); Glucose, Urine (Dipstick) Negative (Negative); Leukocyte Moderate (Negative); Nitrite Positive (Negative); Protein, Urine (Dipstick) Trace mg/dL (Neg-Trace); Specific Gravity, Urine 1.021 (1.002-1.036)
[2018-09-19 23:38] LABS: Bacteria/HPF 1+ HPF (None Seen); Hyaline Casts/LPF 7-10 HYALINE CAST LPF (0-3 Hyaline); Pathc Cast-AUWi Flag 0.81 (0-2.49); RBC/HPF 0-3 HPF (0-3); Squamous Epithelial None Seen HPF (0-3)
[2018-09-19 23:40] LABS: ALT (SGPT) 20 U/L (8-55); AST (SGOT) 20 U/L (5-34); Albumin 3.6 g/dL (3.5-5.0); Alkaline Phosphatase 91 U/L (40-150); Anion Gap 9 mmol/L (10-20); BUN (Urea Nitrogen) 12 mg/dL (8.4-25.7); Bilirubin, Total 0.4 mg/dL (0.2-1.2); Calc. Creatinine Clearance 0 mL/min (70-130); Calcium 8.8 mg/dL (7.8-10.44); Carbon Dioxide 34 mmol/L (22-29); Chloride 97 mmol/L (98-107); Estimated GFR-MDRD Greater than 90; Globulin 3.2 g/dL (2.4-3.5); Glucose 220 mg/dL (70-105); Lipase 16 U/L (8-78); Potassium 3.6 mmol/L (3.5-5.1); Protein, Total 6.8 g/dL (6.0-8.3); Sodium 136 mmol/L (136-145)
--- NOTE | 2018-09-19 23:59 | RAD ---
FRONTAL RADIOGRAPH CHEST PORTABLE UPRIGHT: 09/19/2018 HISTORY: Chest pain. COMPARISON: 07/25/2017 FINDINGS: The cardiac silhouette is enlarged. The patient is rotated to the right. No pneumothorax, lobar con solidation, or alveolar edema. IMPRESSION: No acute findings. POS: [facility]
--- NOTE | 2018-09-20 07:45 | ULT ---
GALLBLADDER ULTRASOUND: CLINICAL HISTORY: Abdominal pain. FINDINGS: There is limited acoustic penetration of the liver. No shadowing cholelithiasis. Low-level echoes i n the gallbladder lumen are present which could relate to sludge. There is a borderline size of the gallbladder wall approximating 3 mm. The common duct is not well visualized for comment. No discret e ascites is seen. IMPRESSION: 1. Borderline-size gallbladder wall. Positive Buenrostro's sign is reported by the office machines sales representative. There may be gallbladder sludge. Recommend clinical correlation to exclude evidence of cholecystitis. 2. The exam is markedly limited due to decreased acoustic penetration. If clinically indicated, int raabdominal findings may be further assessed with CT scan. POS: [facility]
== END 2018-09-20 01:56 ==
LOC: ERS 22:47
DX: N12 Tubulo-interstitial nephritis, not specified as acute or chronic (principal); K21.9 Gastro-esophageal reflux disease without esophagitis; Z79.899 Other long term (current) drug therapy
CPT/HCPCS: 36415; 71045; 76705; 80053; 81003; 81015; 83690; 85025; 87077; 87086; 87186

== ENCOUNTER 2018-11-18 12:54 | Inpatient (IN) | payer MEDICARE, MEDICAID ==
[2018-11-18 14:02] LABS: #Eosinphils 0.5 thou/uL (0.0-0.7); #Lymphocytes 1.4 thou/uL (1.20-3.40); #Monocytes 0.8 thou/uL (0.11-0.59); #Neutrophils 8.3 thou/uL (1.40-6.50); %Basophils 0.4 % (0.0-1.0); %Eosinophils 4.1 % (0.0-10.0); %Monocytes 7.3 % (0.0-10.0); %Neutrophils 75.3 % (42.0-75.0); Hemoglobin 13.4 g/dL (14.0-18.0); Mean Corpuscular HGB CONC 31.8 g/dL (32.0-36.0); Mean Corpuscular Volume 87.8 fL (78.0-98.0); Mean Platelet Volume 6.5 fL (7.4-10.4); Platelet Count 277 thou/uL (130-400); RBC Distribution Width 13.3 % (11.5-14.5); Red Blood Cell (RBC) Count 4.78 mill/uL (4.70-6.10); White Blood Cell (WBC) Count 11.1 thou/uL (4.8-10.8)
[2018-11-18 14:28] LABS: ALT (SGPT) 20 U/L (8-55); AST (SGOT) 21 U/L (5-34); Alkaline Phosphatase 95 U/L (40-150); Anion Gap 15 mmol/L (10-20); BUN (Urea Nitrogen) 12 mg/dL (8.4-25.7); Bilirubin, Total 0.3 mg/dL (0.2-1.2); Calc. Creatinine Clearance 0 mL/min (70-130); Carbon Dioxide 31 mmol/L (22-29); Chloride 98 mmol/L (98-107); Estimated GFR-MDRD Greater than 90; Globulin 2.8 g/dL (2.4-3.5); Glucose 167 mg/dL (70-105); Lipase 14 U/L (8-78); Potassium 3.7 mmol/L (3.5-5.1); Protein, Total 6.8 g/dL (6.0-8.3); Sodium 140 mmol/L (136-145)
--- NOTE | 2018-11-18 15:43 | CT ---
ABDOMEN AND PELVIS CT WITH IV CONTRAST: 11/18/18 Enteric contrast not administered per ordering physician request which does preclude reliable assessm ent of the bowel. Reference made to 11/02/16 exam. INDICATIONS: Abdominal pain. FINDINGS: There is air filled distention of bowel throughout the abdomen and extending into the pelvis with as sociated eventration of the ventral abdominal wall which is protruded ventrally due to air filled dis tention of the bowel. There is a focus of acute inflammation about torsion of the sigmoid colon with surrounding fat stranding and short segment decompression of the lumen in this region. The dilated co scott is proximal to this site of acute torsion. No disseminated free air. Low attenuation of the hepatic parenchyma may indicate hepatic steatosis. Small kidneys are seen amelia aterally without hydronephrosis. No adrenal mass. No acute abnormality of the spleen or pancreas. The abdominal aorta demonstrates calcification related atherosclerotic disease. Bibasilar atelectasis is present. Scattered osseous degenerative change. IMPRESSION: Acute sigmoid volvulus with associated colonic obstruction. Urgent surgical consultation is warranted . These findings and recommendations were conveyed via telephone to the ER physician, Gilbert Houston, at 1521 hours, 11/18/18. Code CR
--- NOTE | 2018-11-18 16:12 | PDOC.FPRHP ---
- History of Present Illness Chief Complaint: abdominal pain History of Present Illness: Pain in lower left side for last 3 days. Has had a little diarrhea the last few days. Denies any hematochezia. Denies any n/v/c. Pt reports feeling bloated. Pt reports having hernia that is hard as a rock. Pt reports gets better when up and moving around. Denies any fever/chills. Reports occasional rash. Having some tingling on that side with pain. Pain is about the same. Has taken tylenol and not helped. Has been eating and drinking still the same. Reports tickling sensation on abdomen. ED Course: CMP, CBC, Lipase, CT abd, Trop - Allergies/Adverse Reactions Allergies Allergy/AdvReac Type Severity Reaction Status Date / Time No Known Allergies Allergy Verified 04/21/17 02:56 - Home Medications Medication Instructions Recorded Confirmed Type Amitiza 1 tab PO BID 03/09/15 06/14/17 History Furosemide [Lasix] 1 tab PO DAILY 03/09/15 06/14/17 History Magnesium Oxide [Magnesium] 1 tab PO DAILY 03/09/15 06/14/17 History Mirtazapine 1 tablet PO HS 03/09/15 06/14/17 History Spironolactone 1 tab PO DAILY 03/09/15 06/14/17 History Potassium Chloride [Klor-Con 10] 1 tab PO DAILY #0 03/13/15 06/14/17 Rx Fluticasone Propionate [Flonase 2 spray EA NARE DAILY PRN 11/04/15 06/14/17 History Nasal [place]] Gabapentin 300 mg PO TID 11/04/15 06/14/17 History Loratadine [Claritin] 10 mg PO DAILY PRN 11/04/15 06/14/17 History Pantoprazole [Protonix] 40 mg PO DAILY 06/27/16 06/14/17 History Baclofen 10 mg PO TID 12/17/16 06/14/17 History Mirabegron [Myrbetriq ER] 50 mg PO DAILY 12/17/16 06/14/17 History Diphenoxylate HCl/Atropine 2 tab PO QID PRN #10 tab 12/18/16 06/14/17 Rx [Lomotil] Saccharomyces boulardii [Florastor] 250 mg PO DAILY #10 cap 02/13/17 06/14/17 Rx Cephalexin [Keflex] 250 mg PO BID #10 capsule 08/04/17 Rx Guaifenesin DM 100-10 [Robitussin 10 ml PO Q4H PRN #1 bot 08/04/17 Rx DM] metroNIDAZOLE [Flagyl] 500 mg PO Q8HR #15 tab 08/04/17 Rx - History PMHx: HTN, Hx of Hernia, Hemiplegic, Neurogenic Bladder, GERD PSHx: Suprapubic catheter, Ventral Hernia surgery 20 yrs ago. FHx: Dad- CAD Mom- Diabetes Social: Quit smoking 3 years ago, Denies any alcohol use, Denies any recent illicit drug use. Pt reports being full code. - Review of Systems General: denies: fever/chills, weight/appetite/sleep changes, fatigue ENT: denies: nasal congestion, rhinorrhea Respiratory: denies: cough, shortness of breath Cardiovascular: reports: edema (Has chronic swelling in lower extremities). denies: chest pain, palpitation Gastrointestinal: reports: diarrhea, abdominal pain (Pain in lower left side). denies: nausea, vomiting, constipation, GI bleeding Genitourinary: reports: incontinence (From hemiplegia) Skin: denies: rashes, itching Musculoskeletal: denies: pain, tenderness, stiffness Neurological: denies: numbness, weakness Psychological: denies: anxiety, depression - Vital signs BP: 192/130, Pulse: 87, Resp: 24, Temp: 98.3 (Oral), Pain: 7, O2 sat: 97 on Room Air - Physical Exam Constitutional: NAD HEENT: normocephalic and atraumatic, grossly normal vision, grossly normal hearing, MMM Neck: supple, trachea midline Chest: no-tender to palpation Heart: RRR, normal S1/S2, no murmurs/rubs/gallops Lungs: CTAB, no respiratory distress, good air movement Abdomen: soft, bowel sounds present -Abdomen: distended, tense abdomen Musculoskeletal: normal structure -Neurological: baseline deficits Skin: no rash/lesions, good turgor Heme/Lymphatic: no unusual bruising or bleeding Psychiatric: normal mood and affect FMR H&P: Results - Labs Result Diagrams: 11/18/18 13:47 11/18/18 13:47 Lab results: WBC 11.1 thou/uL (4.8-10.8) H 11/18/18 13:47 Hgb 13.4 g/dL (14.0-18.0) L 11/18/18 13:47 Hct 41.9 % (42.0-52.0) L 11/18/18 13:47 MCV 87.8 fL (78.0-98.0) 11/18/18 13:47 Plt Count 277 thou/uL (130-400) 11/18/18 13:47 Neutrophils % 75.3 % (42.0-75.0) H 11/18/18 13:47 Sodium 140 mmol/L (136-145) 11/18/18 13:47 Potassium 3.7 mmol/L (3.5-5.1) 11/18/18 13:47 Chloride 98 mmol/L (98-107) 11/18/18 13:47 Carbon Dioxide 31 mmol/L (22-29) H 11/18/18 13:47 BUN 12 mg/dL (8.4-25.7) 11/18/18 13:47 Creatinine 0.75 mg/dL (0.7-1.3) 11/18/18 13:47 Glucose 167 mg/dL (70-105) H 11/18/18 13:47 Calcium 9.0 mg/dL (7.8-10.44) 11/18/18 13:47 Total Bilirubin 0.3 mg/dL (0.2-1.2) 11/18/18 13:47 AST 21 U/L (5-34) 11/18/18 13:47 ALT 20 U/L (8-55) 11/18/18 13:47 Alkaline Phosphatase 95 U/L (40-150) 11/18/18 13:47 Serum Total Protein 6.8 g/dL (6.0-8.3) 11/18/18 13:47 Albumin 4.0 g/dL (3.5-5.0) 11/18/18 13:47 Lipase 14 U/L (8-78) 11/18/18 13:47 FMR H&P: A/P - Problem List (1) Volvulus of sigmoid colon Current Visit: Yes Status: Acute (2) Hypertension Current Visit: No Status: Chronic Code(s): I10 - ESSENTIAL (PRIMARY) HYPERTENSION Qualifiers: Hypertension type: essential hypertension Qualified Code(s): I10 - Essential (primary) hypertension Comment: Only med on list in Spironolactone. (3) Morbid obesity with BMI of 40.0-44.9, adult Current Visit: No Status: Chronic Code(s): E66.01 - MORBID (SEVERE) OBESITY DUE TO EXCESS CALORIES; Z68.41 - BODY MASS INDEX (BMI) 40.0-44.9, ADULT (4) Neurogenic bladder Current Visit: No Status: Chronic Code(s): N31.9 - NEUROMUSCULAR DYSFUNCTION OF BLADDER, UNSPECIFIED (5) Paraplegia Current Visit: No Status: Chronic Code(s): G82.20 - PARAPLEGIA, UNSPECIFIED Comment: PT/OT. Likely would need placement this admission. CM on board. (6) Suprapubic catheter Current Visit: No Status: Chronic Code(s): Z93.59 - OTHER CYSTOSTOMY STATUS (7) Venous insufficiency of both lower extremities Current Visit: No Status: Chronic Code(s): I87.2 - VENOUS INSUFFICIENCY ( CHRONIC) (PERIPHERAL) - Plan Sigmoid volvulus - Noted on CT scan abd/pel in ED, WBC wnl, VSS, no peritoneal signs on abdominal exam - General sgx contacted from ED, declined consult, deferred to GI - GI consulted from ED, ask pt to be admitted. appreciate recs - IVF LR 150 ml/hr, NPO - Morphine for pain control HTN - elevated BP in ED, Hydralazine prn for SBP>180 - continue home meds Hx of spinal cord injury - associated parapalegia and neurogenic bladder - continue home meds - routine patel care - move w/ assist PCP: brandy Code: Full ppx: [email or web address] Dispo: admit to medical for endoscopic intervention by GI, will await recs FMR H&P: Upper Level - Pertinent history I was present with the electrical engineering intern Claude Garner, PGY-1. I scribed the above history for him as he obtained it. I agree with everything stated above. I edited the above HPI as I see fit. - Pertinent findings Abdomen: Moderately distended (Pt states it is usually that hard), Pain on R. side of abdomen. Ext: Pt has chronic edema in lower extremities. Legs are dressed at this time. No sign of drainage or infection - Plan Date/Time: 11/18/18 1612 I, [Lefty Joseph. ], have evaluated this patient and agree with findings/plan as outlined by electrical engineering intern resident. Pertinent changes/additions are listed here. Sigmoid Volvulus - CT Abdomen/Pelvis- Acute sigmoid volvulus associated w/ colonoic obstruction. -In the ER Dr. Houston contacted General Surgery who conveyed to them to call GI. He called Dr. Ferrara with GI who said he would come and see him. -GI consulted- Dr. Ferrara- follow recs -Morphine PRN for pain -Keep NPO for now. Ventral Hernia -No complications at this time. Continue to monitor HTN -BP elevated. Will restart home medications and continue to monitor and adjust as needed. Chronic Venostasis -Pt has LE dressed. -Consult Wound Care- Follow recs -Will continue home medications. Neurogenic Bladder -Suprapubic catheter in place. Continue routine catheter care. No signs of infection GERD -continue home meds Addendum - Attending - Attending Attestation Date/Time: 11/18/18 1901 I personally evaluated the patient and discussed the management with Dr. Garner/ Opal. I agree with the History, Examination, Assessment and Plan documented above with any addition or exceptions noted below. Patient with increasing abdominal pain transferred here and found to have sigmoid volvulus with obstruction on CT scan. He does report continuing to have intermittent loose and normal bowel movements. Pain is somewhat improved currently. Gen Surg and GI consulted from ER, Gen Surg deferring to GI. Keep NPO , pain control as needed, IVF, and await GI recs. Labs overall stable. Abdomen distended, mildly tender. Patient with history of ventral hernia that he reports is overall at its baseline.
[2018-11-18] MEDS ORDERED: Acetaminophen 650 MG Suppository PR PRN (16:54)
[2018-11-18] MEDS ORDERED: Ondansetron ODT 4 MG TAB PO PRN (16:54)
[2018-11-18] MEDS ORDERED: Acetaminophen 325 MG TAB PO PRN (16:54)
[2018-11-18] MEDS ORDERED: Ondansetron PF 4 MG/2 ML Vial IVP PRN (16:54)
[2018-11-18] MEDS ORDERED: Morphine 4 MG/ML VIAL SLOW IVP PRN (16:57)
[2018-11-18] MEDS ORDERED: Morphine 2 MG/ML SYRINGE SLOW IVP PRN (17:03)
[2018-11-18] MEDS ORDERED: hydrALAZINE 20 MG/ML VIAL SLOW IVP PRN (17:08)
[2018-11-18] MEDS: Lactated Ringer's 1,000 ML IV SCH (19:59)
[2018-11-18] MEDS ORDERED: Fleet Enema 133 ML BOT PR SCH (20:45)
[2018-11-18 20:51] VITALS: BMI 49.8
[2018-11-18] MEDS ORDERED: Ketamine 50 MG/ML (10ML VIAL) ONE (21:19)
[2018-11-19] MEDS: Lactated Ringer's 1,000 ML IV SCH (01:50)
[2018-11-19 05:36] LABS: #Eosinphils 0.6 thou/uL (0.0-0.7); #Lymphocytes 1.9 thou/uL (1.20-3.40); #Neutrophils 9.3 thou/uL (1.40-6.50); %Basophils 0.4 % (0.0-1.0); %Eosinophils 4.4 % (0.0-10.0); %Monocytes 7.9 % (0.0-10.0); %Neutrophils 72.3 % (42.0-75.0); Hemoglobin 12.1 g/dL (14.0-18.0); Mean Corpuscular HGB CONC 32.6 g/dL (32.0-36.0); Mean Corpuscular Hemoglobin 28.6 pg (27.0-31.0); Mean Corpuscular Volume 87.8 fL (78.0-98.0); Mean Platelet Volume 7.3 fL (7.4-10.4); Platelet Count 300 thou/uL (130-400); RBC Distribution Width 13.3 % (11.5-14.5); Red Blood Cell (RBC) Count 4.23 mill/uL (4.70-6.10); White Blood Cell (WBC) Count 12.9 thou/uL (4.8-10.8)
[2018-11-19 06:24] LABS: ALT (SGPT) 18 U/L (8-55); AST (SGOT) 19 U/L (5-34); Albumin 3.6 g/dL (3.5-5.0); Alkaline Phosphatase 83 U/L (40-150); Anion Gap 13 mmol/L (10-20); BUN (Urea Nitrogen) 10 mg/dL (8.4-25.7); Bilirubin, Total 0.5 mg/dL (0.2-1.2); Calc. Creatinine Clearance 272 mL/min (70-130); Calcium 8.7 mg/dL (7.8-10.44); Carbon Dioxide 31 mmol/L (22-29); Chloride 98 mmol/L (98-107); Estimated GFR-MDRD Greater than 90; Glucose 130 mg/dL (70-105); Potassium 3.2 mmol/L (3.5-5.1); Protein, Total 6.6 g/dL (6.0-8.3); Sodium 139 mmol/L (136-145)
[2018-11-19] MEDS ORDERED: Artificial Tear Sol 15 ML BOT EA EYE PRN (07:07)
[2018-11-19] MEDS ORDERED: Guaifenesin DM 100-10/5 ML UDCUP PO PRN (07:07)
[2018-11-19] MEDS ORDERED: Fluticasone Propionate Nasal Spray 16 gm Bottle NASAL PRN (07:07)
[2018-11-19] MEDS ORDERED: Loratadine 10 MG TAB PO PRN (07:07)
--- NOTE | 2018-11-19 07:11 | PDOC.FM ---
- Subjective Subjective: pt resting comfortably in bed, tolerating PO, denies abdominal pain - Objective Vital Signs & Weight: Vital Signs (12 hours) Temp Pulse Resp BP Pulse Ox 11/19/18 04:44 98.7 F 86 20 94/62 93 L 11/19/18 00:21 98.2 F 89 20 135/80 92 L 11/18/18 22:20 97.9 F 90 20 117/84 92 L 11/18/18 20:00 94 L 11/18/18 19:49 98.0 F 74 20 161/98 H 94 L Weight Weight 166.786 kg I&O: 11/18/18 11/19/18 11/20/18 06:59 06:59 06:59 Output Total 500 Balance -500 Result Diagrams: 11/19/18 05:02 11/19/18 05:02 Phys Exam - Physical Examination Constitutional: NAD HEENT: moist MMs Neck: full ROM Gastrointestinal: soft, non-tender Musculoskeletal: pulses present Psychiatric: normal affect Skin: no rash Dx/Plan (1) Volvulus of sigmoid colon Status: Acute (2) Hypertension Code(s): I10 - ESSENTIAL (PRIMARY) HYPERTENSION Status: Chronic Qualifiers: Hypertension type: essential hypertension Qualified Code(s): I10 - Essential (primary) hypertension (3) Morbid obesity with BMI of 40.0-44.9, adult Code(s): E66.01 - MORBID (SEVERE) OBESITY DUE TO EXCESS CALORIES; Z68.41 - BODY MASS INDEX (BMI) 40.0-44.9, ADULT Status: Chronic (4) Neurogenic bladder Code(s): N31.9 - NEUROMUSCULAR DYSFUNCTION OF BLADDER, UNSPECIFIED Status: Chronic (5) Paraplegia Code(s): G82.20 - PARAPLEGIA, UNSPECIFIED Status: Chronic (6) Suprapubic catheter Code(s): Z93.59 - OTHER CYSTOSTOMY STATUS Status: Chronic (7) Venous insufficiency of both lower extremities Code(s): I87.2 - VENOUS INSUFFICIENCY (CHRONIC) (PERIPHERAL) Status: Chronic - Plan Plan: Sigmoid volvulus - Noted on CT scan abd/pel in ED, WBC wnl, VSS, no peritoneal signs on abdominal exam - General sgx contacted from ED, declined consult, deferred to GI - GI consulted from ED. appreciate recs - colonoscopic decompression completed - DC fluids, AAT diet HTN - elevated BP in ED, Hydralazine prn for SBP>180 - continue home meds Hx of spinal cord injury - associated parapalegia and neurogenic bladder - continue home meds - routine patel care - move w/ assist PCP: brandy Code: Full ppx: [email or web address] Dispo: endoscopic intervention completed, consider DC later today if remains asymptomatic
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
--- NOTE | 2018-11-19 08:44 | OP ---
DATE OF PROCEDURE: 11/18/2018 PROCEDURES PERFORMED: Colonoscopy with decompression. PREOPERATIVE DIAGNOSIS: Sigmoid volvulus. DESCRIPTION OF PROCEDURE: The patient was placed on the left lateral position and was given sedation by Anesthesia Department. A Pentax video gastroscope was introduced in the rectum and advanced to the sigmoid colon. Although, the CAT scan showed a partial volvulus, on endoscopy did reach the transverse and sigmoid colon. The scope was advanced all the way into the hepatic flexure. He had blockage of stool. The scope was used to decompress the colon. declot because of stool. After decompression, the abdomen was very soft and nontender. I advised the patient actually wants to eat something today. IMPRESSION: 1. Sigmoid volvulus on CAT scan, but the endoscopic findings are really not very suggestive of it. The colon was decompressed very easily. I really doubt some element of megacolon because of constipation. Plan clear liquid diet today. 2. Advance diet as tolerated. 3. Dr. Jayden Keys will cover for me tomorrow. Job ID: [id number]
[2018-11-19] MEDS ORDERED: Magnesium Oxide 400 MG TAB PO SCH (09:00)
[2018-11-19] MEDS ORDERED: MAGNESIUM OXIDE PO SCH (09:00)
[2018-11-19] MEDS ORDERED: Potassium Chloride 10 MEQ TAB PO SCH ×2 (09:00)
[2018-11-19] MEDS ORDERED: Lubiprostone 8 MCG CAP PO SCH ×2 (09:00)
[2018-11-19] MEDS ORDERED: Enoxaparin Sodium 40 MG/0.4 ML SYRINGE SC SCH (09:00)
[2018-11-19] MEDS ORDERED: Non-Formulary Item 1 EACH (Oxybutynin Chloride [Oxybutynin Chloride Er] 10 MG) PO SCH (09:00)
[2018-11-19] MEDS ORDERED: Spironolactone 25 MG TAB PO SCH ×2 (09:00)
[2018-11-19] MEDS ORDERED: Oxybutynin 5 MG TAB PO SCH (09:00)
[2018-11-19] MEDS ORDERED: Furosemide 80 MG TAB PO SCH ×2 (09:00)
[2018-11-19] MEDS ORDERED: Citalopram 20 MG TAB PO SCH (09:00)
[2018-11-19] MEDS ORDERED: Saccharomyces boulardii 250 MG CAP PO SCH (09:00)
[2018-11-19] MEDS: Gabapentin 300 MG CAP PO SCH ×2 (09:07→13:59)
[2018-11-19] MEDS: Cyclobenzaprine 10 MG TAB PO SCH ×2 (09:07→13:59)
[2018-11-19] MEDS ORDERED: Potassium Chloride 20 MEQ TAB PO SCH (09:30)
--- NOTE | 2018-11-19 11:45 | PRG ---
DATE OF SERVICE: 11/19/2018 Mr. Lock is a pleasant 53-year-old man, who was admitted yesterday with an acute sigmoid volvulus. He was taken by GI and had the volvulus successfully reduced endoscopically. This morning, he is fine, eating a regular diet, and having no abdominal pain. Will be discharged later this afternoon. Job ID: [id number]
[2018-11-19 16:17] VITALS: BP 143/72; TEMP 98.3
--- NOTE | 2018-11-20 04:22 | DIS ---
DATE OF ADMISSION: 11/18/2018 DATE OF DISCHARGE: 11/19/2018 ADMITTING ATTENDING: Diaz Zavala MD RESIDENT: Silvino Garner DO CONSULTS: Gastroenterology, Dr. Jayro Ferrara. IMAGING: Abdomen and pelvis CT in the emergency room revealed an obstructing sigmoid volvulus, acute in nature. PROCEDURES: Endoscopic decompression of sigmoid volvulus. DISCHARGE MEDICATIONS: 1. Spironolactone 25 mg p.o. daily. 2. Magnesium 1 tablet p.o. daily. 3. Lasix 80 mg p.o. daily. 4. Amitiza 8 mcg p.o. b.i.d. 5. Klor-Con 1 tablet p.o. daily. 6. Flonase 2 sprays each naris daily. 7. Claritin 10 mg p.o. daily. 8. Gabapentin 300 mg p.o. t.i.d. 9. Protonix 40 mg p.o. daily. 10. Lomotil 2 tabs p.o. q.i.d. 11. Florastor 250 mg p.o. daily. 12. Guaifenesin 10 mL p.o. q.4 hours p.r.n. 13. Celexa 20 mg p.o. daily. 14. Oxybutynin 10 mg p.o. daily. 15. Flexeril 10 mg p.o. t.i.d. 16. Artificial Tears one drop each eye b.i.d. p.r.n. PRIMARY DIAGNOSIS: Sigmoid volvulus. SECONDARY DIAGNOSES: 1. Hypertension. 2. History of spinal cord injury. HISTORY OF PRESENT ILLNESS/HOSPITAL COURSE: Mr. Lock is a 53-year-old male who presents from [facility] with a 2-day history of right upper quadrant pain. At that time, he denied any decreased p.o. intake, fever, chills, or other extra GI symptoms. CT in the emergency room revealed an acute sigmoid volvulus. GI was consulted at that time. It was determined the patient would be admitted to medical floor and taken for endoscopic intervention of sigmoid volvulus. He underwent the procedure that night, tolerated the procedure well. The following day, the patient was seen without pain, tolerating a p.o. diet and back to baseline. As determined from [facility] records, the patient was deemed stable for discharge back to [facility]. DISCHARGE INSTRUCTIONS: Location: custodial. Activity: As tolerated. Diet: Heart healthy, low-sodium. Followup: Follow up with PCP, Dr. Wang in the next 7 days. Job ID: [id number]
== END 2018-11-19 15:52 | DRG 389 ==
LOC: ERS 12:54 → T4-B 19:27
PROVIDERS: ADMIT Family Medicine; ATTEND Family Medicine
PROC: 0D7N8ZZ Dilation of Sigmoid Colon, Via Natural or Artificial Opening Endoscopic (ICD-10-PCS; principal; 2018-11-18)
DX: K56.2 Volvulus (principal); G82.20 Paraplegia, unspecified; Z68.42 Body mass index [BMI] 45.0-49.9, adult; I10 Essential (primary) hypertension; N31.9 Neuromuscular dysfunction of bladder, unspecified; K43.9 Ventral hernia without obstruction or gangrene; K21.9 Gastro-esophageal reflux disease without esophagitis; K59.09 Other constipation; E66.01 Morbid (severe) obesity due to excess calories; I87.2 Venous insufficiency (chronic) (peripheral); T14.8XXS Other injury of unspecified body region, sequela; Z93.59 Other cystostomy status; Z87.891 Personal history of nicotine dependence; V89.2XXS Person injured in unspecified motor-vehicle accident, traffic, sequela
CPT/HCPCS: 36415; 74177; 80053; 83690; 84484; 85025; 93005; J1650; J2270

== ENCOUNTER 2019-04-19 12:33 | Emergency (ER) | payer MEDICARE, MEDICAID ==
[2019-04-19 13:38] LABS: #Eosinphils 0.4 thou/uL (0.0-0.7); #Lymphocytes 1.6 thou/uL (1.20-3.40); #Monocytes 0.8 thou/uL (0.11-0.59); #Neutrophils 7.4 thou/uL (1.40-6.50); %Basophils 0.3 % (0.0-1.0); %Eosinophils 3.8 % (0.0-10.0); %Lymphocytes 15.7 % (21.0-51.0); %Monocytes 7.9 % (0.0-10.0); %Neutrophils 72.3 % (42.0-75.0); Hemoglobin 13.8 g/dL (14.0-18.0); Mean Corpuscular HGB CONC 32.3 g/dL (32.0-36.0); Mean Corpuscular Volume 86.8 fL (78.0-98.0); Platelet Count 248 thou/uL (130-400); RBC Distribution Width 13.3 % (11.5-14.5); Red Blood Cell (RBC) Count 4.94 mill/uL (4.70-6.10); White Blood Cell (WBC) Count 10.2 thou/uL (4.8-10.8)
[2019-04-19 14:08] LABS: ALT (SGPT) 26 U/L (8-55); AST (SGOT) 31 U/L (5-34); Albumin 3.9 g/dL (3.5-5.0); Alkaline Phosphatase 102 U/L (40-110); Anion Gap 12 mmol/L (10-20); BUN (Urea Nitrogen) 9 mg/dL (8.4-25.7); Bilirubin, Total 0.4 mg/dL (0.2-1.2); Calc. Creatinine Clearance 0 mL/min (70-130); Calcium 9.1 mg/dL (7.8-10.44); Carbon Dioxide 28 mmol/L (22-29); Chloride 98 mmol/L (98-107); Estimated GFR-MDRD Greater than 90; Globulin 3.4 g/dL (2.4-3.5); Glucose 213 mg/dL (70-105); Protein, Total 7.3 g/dL (6.0-8.3); Sodium 134 mmol/L (136-145)
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
== END 2019-04-19 16:23 | disposition home or self-care (01) ==
LOC: ERS 12:33
DX: E66.01 Morbid (severe) obesity due to excess calories (principal); R14.0 Abdominal distension (gaseous); E83.52 Hypercalcemia; I10 Essential (primary) hypertension; K21.9 Gastro-esophageal reflux disease without esophagitis; D51.3 Other dietary vitamin B12 deficiency anemia; G47.00 Insomnia, unspecified; Z79.899 Other long term (current) drug therapy
CPT/HCPCS: 36415; 80053; 85025

== ENCOUNTER 2019-04-19 21:51 | Inpatient (IN) | payer MEDICARE, MEDICAID ==
[2019-04-19] MEDS ORDERED: Fentanyl 100 MCG/2 ML VIAL ONE (23:19)
[2019-04-20] MEDS ORDERED: Ondansetron HCl/PF 4 MG/2 ML Vial IVP PRN (00:17)
[2019-04-20] MEDS ORDERED: Promethazine HCl 25 MG/ML VIAL IM PRN (00:17)
[2019-04-20] MEDS ORDERED: Promethazine HCl 25 MG/ML VIAL SLOW IVP PRN (00:17)
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
[2019-04-20] MEDS ORDERED: Acetaminophen 325 MG TAB PO PRN ×2 (01:32→02:54)
[2019-04-20 02:11] VITALS: BMI 47.5
[2019-04-20] MEDS ORDERED: Ondansetron PF 4 MG/2 ML Vial IVP PRN (02:54)
[2019-04-20] MEDS ORDERED: Ondansetron ODT 4 MG TAB SL PRN (02:54)
[2019-04-20] MEDS ORDERED: Sodium Chloride 0.9% 1,000 ML IV SCH (02:54)
[2019-04-20] MEDS ORDERED: HYDROcodone/Acetaminophen 5/325 mg Tablet PO PRN ×2 (02:54)
--- NOTE | 2019-04-20 03:01 | OP ---
DATE OF PROCEDURE: 04/20/2019 [employer] SURGEON: None. PROCEDURE: Flexible sigmoidoscopy with decompression of sigmoid volvulus. INDICATION: Recurrent sigmoid volvulus. MEDICATIONS: See Anesthesia record. FINDINGS: After discussion of the risks, benefits, and alternatives of the procedure, informed consent was obtained and witnessed. Pre-endoscopic cardiopulmonary examination was satisfactory. Time-out was performed before sedation was achieved. Sedation was achieved with Anesthesia assistance in the endoscopy unit, with the patient endotracheally intubated and sedated. The patient was placed in left lateral decubitus position. Digital rectal exam was performed, which was unremarkable. A Pentax adult colonoscope was inserted into the anus and passed forward in the usual fashion. There was actually a significant amount of semi solid stool in the rectal vault and distal sigmoid colon. The colonoscope was gently advanced to a distance of 30-40 cm from the anal verge. At this point, there was characteristic swirling of the mucosa consistent with sigmoid volvulus. The endoscope was gently advanced into the apex of the swirl beyond 40 cm, the colon was found to be significantly dilated with relatively less stool proximal to the torsed area. The endoscope was gently advanced further to a distance of 100 cm. The colonic mucosa appeared normal. There was no evidence of any ischemic changes or erythema. Air was suctioned out of the proximal colon as much as possible. Palpation of the patient's abdomen demonstrates, it is much softer now. The colonoscope was slowly withdrawn suctioning out as much air as possible. Again, there was a large amount of semi solid stool throughout the colon that were visualized. The colonic mucosa appeared normal. The colonoscope was completely withdrawn and the patient allowed to recover. The patient tolerated procedure well. There were no immediate postprocedure complications. IMPRESSION: Sigmoid volvulus, with characteristic swirling of the mucosa from 30-40 cm, and proximal colonic dilation. Large amount of semi solid stool proximal and distal to this area. Colon successfully detorsed and decompressed. Abdomen now soft. RECOMMENDATION: 1. Clear liquid diet. 2. Surgical consultation for consideration of sigmoidectomy. 3. Please call back, if needed. Job ID: [id number]
[2019-04-20] MEDS ORDERED: Dextrose 5% in Water 1,000 ML IV PRN (05:55)
[2019-04-20] MEDS ORDERED: Dextrose 50% Abboject 50 ML SYRINGE SLOW IVP PRN (05:55)
[2019-04-20 06:02] LABS: #Eosinphils 0.4 thou/uL (0.0-0.7); #Lymphocytes 1.5 thou/uL (1.20-3.40); #Monocytes 0.8 thou/uL (0.11-0.59); #Neutrophils 9.8 thou/uL (1.40-6.50); %Basophils 0.1 % (0.0-1.0); %Lymphocytes 12.1 % (21.0-51.0); %Monocytes 6.2 % (0.0-10.0); %Neutrophils 78.6 % (42.0-75.0); Hemoglobin 12.6 g/dL (14.0-18.0); Mean Corpuscular Hemoglobin 28.6 pg (27.0-31.0); Mean Corpuscular Volume 86.6 fL (78.0-98.0); Mean Platelet Volume 7.1 fL (7.4-10.4); Platelet Count 227 thou/uL (130-400); RBC Distribution Width 13.1 % (11.5-14.5); Red Blood Cell (RBC) Count 4.41 mill/uL (4.70-6.10); White Blood Cell (WBC) Count 12.5 thou/uL (4.8-10.8)
[2019-04-20 06:21] LABS: Anion Gap 14 mmol/L (10-20); BUN (Urea Nitrogen) 8 mg/dL (8.4-25.7); Calc. Creatinine Clearance 247 mL/min (70-130); Calcium 8.3 mg/dL (7.8-10.44); Carbon Dioxide 30 mmol/L (22-29); Chloride 96 mmol/L (98-107); Estimated GFR-MDRD Greater than 90; Glucose 268 mg/dL (70-105); Potassium 3.6 mmol/L (3.5-5.1); Sodium 136 mmol/L (136-145)
[2019-04-20] MEDS ORDERED: Artificial Tear Sol 15 ML BOT EA EYE PRN (06:26)
[2019-04-20] MEDS ORDERED: Diphenoxylate HCl/Atropine Tablet PO PRN (06:26)
[2019-04-20] MEDS ORDERED: Loratadine 10 MG TAB PO PRN (06:26)
[2019-04-20] MEDS ORDERED: Guaifenesin DM 100-10/5 ML UDCUP PO PRN (06:26)
[2019-04-20] MEDS: HumaLOG 300 UNITS/3 ML VIAL SC PRN ×3 (06:37→16:57)
[2019-04-20] MEDS: Citalopram 20 MG TAB PO SCH (08:52)
[2019-04-20] MEDS: Spironolactone 25 MG TAB PO SCH (08:52)
[2019-04-20] MEDS: Cyclobenzaprine 10 MG TAB PO SCH ×3 (08:52→20:54)
[2019-04-20] MEDS: Gabapentin 300 MG CAP PO SCH ×3 (08:53→20:54)
[2019-04-20] MEDS: Saccharomyces boulardii 250 MG CAP PO SCH (08:53)
[2019-04-20] MEDS: Magnesium Oxide 400 MG TAB PO SCH (08:53)
[2019-04-20] MEDS: Potassium Chloride 10 MEQ TAB PO SCH (08:53)
[2019-04-20] MEDS: Oxybutynin ER 5 MG TAB PO SCH (08:53)
[2019-04-20] MEDS: Furosemide 80 MG TAB PO SCH (08:53)
[2019-04-20] MEDS ORDERED: Metformin Hcl [Metformin Hcl Er] 750 MG PO SCH (09:00)
[2019-04-20] MEDS ORDERED: GoLYTELY 4,000 ml Bottle PO SCH (09:15)
[2019-04-20] MEDS: Lubiprostone 8 MCG CAP PO SCH ×2 (09:39→20:53)
--- NOTE | 2019-04-20 10:37 | CON ---
DATE OF CONSULTATION: 04/20/2019 HISTORY OF PRESENT ILLNESS: Raúl is a 54-year-old morbidly obese male with history of neurogenic bladder on chronic SP tube change every 6 weeks. He has a 28-Slovak 30 mL suprapubic tube. He initially had an SP tube placed by [facility]. I have been taking care of Raúl for the last few years with interval SP tube exchanges. He was last seen on March 31, on which his SP tube was changed uneventfully. The ER did contact me yesterday as he presented with vague abdominal discomfort. The catheter was draining uneventfully and I informed them that it is not of urologic issue. However, subsequently, he had a CT abdomen and pelvis, which I reviewed myself demonstrating SP tube in good position with no bladder stones or hydronephrosis. He was found to have a sigmoid volvulus and underwent emergent decompression by Dr. Briggs. PAST MEDICAL HISTORY: Hypertension. Paraplegia secondary to C-spine injury. Neurogenic bladder. Reflux. Anemia. History of urethral stricture. Constipation. Chronic renal cysts. Chronic venous stasis of the lower extremity. He does have a sigmoid volvulus history in October 2018. PAST SURGICAL HISTORY: Ventral hernia repair. SP tube. Prior surveillance cystoscopy. ALLERGIES: NO KNOWN DRUG ALLERGIES. SOCIAL HISTORY: He lives in a penitentiary, followed by Dr. Wang. REVIEW OF SYSTEMS: 10 point review of systems as above, otherwise noncontributory. PHYSICAL EXAMINATION: VITAL SIGNS: His vital signs are stable. I's and O's 740 in and 500 out. GENERAL: The patient is in no acute distress, somewhat groggy. HEENT: Grossly unremarkable. HEART: Regular rate. LUNGS: Clear, distant. ABDOMEN: Morbidly obese. Protuberant. Significant panniculus. SP tube site demonstrates some erythema, which is chronic with no evidence of pus or fluctuance. A 28-Slovak 30 mL suprapubic tube in place, which I flushed at bedside, which irrigates with ease with mild sediment. EXTREMITIES: Chronic venous stasis. 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 No evidence of intratesticular mass. DIAGNOSTIC STUDIES: Pertinent imaging and CT, which I reviewed myself. CT of the abdomen and pelvis with contrast demonstrates mild scarring of each kidney, right greater than left, subcentimeter too small to characterize hypodense right midpole renal cyst, no evidence of hydronephrosis, sigmoid volvulus with distended colon 9.5 cm. Bladder is decompressed with suprapubic tube with no gross bladder stones. PERTINENT LABORATORY DATA: White count 12, hemoglobin 12, platelet 227, creatinine 0.79. IMPRESSION AND PLAN: Mr. Lock is a 54-year-old male with history of morbid obesity, with chronic suprapubic tube due to neurogenic bladder, history of urethral stricture, defunctionalized due to chronic suprapubic tube. He is currently admitted for abdominal pain secondary to volvulus. It is not of urologic origin. Continue suprapubic tube to gravity as previous. He does have followup in our office for routine suprapubic tube exchange on May 12 at 1015 hours. will sign off, no antibiotics from urologic perspective is indicated. Job ID: [id number] MTDD
[2019-04-20] MEDS: Neomycin 500 mg Tablet PO SCH ×3 (12:11→20:54)
[2019-04-20] MEDS: Erythromycin Base 250 MG TAB PO SCH ×3 (12:11→20:54)
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
[2019-04-20] MEDS ORDERED: FLU VACC QS2019-20(6MOS UP)/PF 60 MCG/0.5 ML SYRINGE IM ONE (21:00)
--- NOTE | 2019-04-21 05:47 | PDOC.FM ---
- Subjective Subjective: Feeling well. A little abdominal pain after surgery. Endorses some wheezing. No questions or concerns. - Objective MAR Reviewed: Yes Vital Signs & Weight: Vital Signs (12 hours) Temp Pulse Resp BP Pulse Ox 04/21/19 03:24 99 F 18 162/78 H 93 L 04/21/19 00:24 98.8 F 84 16 124/78 97 04/20/19 20:04 98.0 F 85 18 127/80 92 L Weight Weight 163.339 kg I&O: 04/19/19 04/20/19 04/21/19 06:59 06:59 06:59 Intake Total 6490 Output Total 2500 Balance 3990 Result Diagrams: 04/21/19 05:30 04/21/19 05:30 Phys Exam - Physical Examination Constitutional: NAD HEENT: moist MMs Neck: no nodes, supple Respiratory: wheezing present Cardiovascular: RRR, no significant murmur Gastrointestinal: soft tympanic to percussion. Laprascopic incisions as well as LLQ laparotomy inc Musculoskeletal: no edema Neurological: moves all 4 limbs Psychiatric: normal affect, A&O x 3 Dx/Plan - Plan Plan: Sigmoid Volvulus - Confirmed by CT imaging - GI consulted: Dr. Briggs endoscopically reduced volvulus and decompressed colon - Surgery consulted, sigmoid colectomy planned for today Paraplegia - neurogenic bladder - Continue suprapubic catheter care DM - Cont home Metformin - Mild SSI HTN - Continue home rx Addendum - Attending - Attending Attestation Date/Time: 04/21/19 4196 I personally evaluated the patient and discussed the management with Dr. Last I agree with the History, Examination, Assessment and Plan documented above with any addition or exceptions noted below. Patient doing well post operatively. No complaints. Await surgery recs.
[2019-04-21 05:53] LABS: #Eosinphils 0.4 thou/uL (0.0-0.7); #Lymphocytes 1.5 thou/uL (1.20-3.40); #Monocytes 0.8 thou/uL (0.11-0.59); #Neutrophils 6.5 thou/uL (1.40-6.50); %Basophils 0.3 % (0.0-1.0); %Eosinophils 4.1 % (0.0-10.0); %Lymphocytes 16.6 % (21.0-51.0); %Monocytes 8.8 % (0.0-10.0); %Neutrophils 70.2 % (42.0-75.0); Hemoglobin 12.2 g/dL (14.0-18.0); Mean Corpuscular HGB CONC 31.2 g/dL (32.0-36.0); Mean Corpuscular Hemoglobin 27.1 pg (27.0-31.0); Mean Platelet Volume 7.1 fL (7.4-10.4); Platelet Count 242 thou/uL (130-400); RBC Distribution Width 13.1 % (11.5-14.5); White Blood Cell (WBC) Count 9.3 thou/uL (4.8-10.8)
[2019-04-21] MEDS ORDERED: Fentanyl 250 MCG/5 ML VIAL ONE (06:05)
[2019-04-21 06:14] LABS: Anion Gap 10 mmol/L (10-20); BUN (Urea Nitrogen) Less than 4 mg/dL (8.4-25.7); Calc. Creatinine Clearance 271 mL/min (70-130); Calcium 8.1 mg/dL (7.8-10.44); Carbon Dioxide 34 mmol/L (22-29); Chloride 97 mmol/L (98-107); Estimated GFR-MDRD Greater than 90; Glucose 178 mg/dL (70-105); Potassium 3.1 mmol/L (3.5-5.1); Sodium 138 mmol/L (136-145)
[2019-04-21] MEDS ORDERED: Midazolam HCl 2 mg/2 ml Vial ONE (06:52)
[2019-04-21] MEDS ORDERED: Fentanyl 100 MCG/2 ML VIAL ONE (06:52)
[2019-04-21] MEDS ORDERED: Dexamethasone 4 mg/ml Vial ONE (06:53)
[2019-04-21] MEDS ORDERED: Lidocaine 1% (PF) 30 ML VIAL ONE (06:54)
[2019-04-21] MEDS ORDERED: Bupivacaine/Epinephrine 0.25% 30 ML VIAL ONE (06:55)
[2019-04-21] MEDS ORDERED: Lidocaine 1% w/Epinephrine 1:100K 20 ML VIAL ONE (06:55)
[2019-04-21] MEDS ORDERED: Famotidine/PF 20 mg/2ml Vial ONE (06:58)
[2019-04-21] MEDS ORDERED: cefOXitin 2 GM VIAL ONE ×2 (07:12→09:46)
[2019-04-21] MEDS ORDERED: Sodium Chloride 0.9% 100 ML ONE (07:12)
[2019-04-21] MEDS ORDERED: SUGAMMADEX SODIUM 500 MG/5 ML VIAL ONE (07:24)
[2019-04-21] MEDS ORDERED: Potassium Chloride 30 MEQ in Sodium Chloride 0.9% 250 ML 250 ML IV SCH (08:00)
[2019-04-21] MEDS ORDERED: Albuterol Sulfate HFA (OR ONLY) ONE (08:23)
[2019-04-21] MEDS ORDERED: Promethazine HCl 25 MG/ML VIAL IM PRN ×2 (08:58→11:08)
[2019-04-21] MEDS ORDERED: Promethazine HCl 25 MG/ML VIAL SLOW IVP PRN (08:58)
[2019-04-21] MEDS ORDERED: Ondansetron HCl/PF 4 MG/2 ML Vial IVP PRN (08:58)
[2019-04-21] MEDS: Lubiprostone 8 MCG CAP PO SCH ×2 (09:00→22:19)
[2019-04-21] MEDS: Furosemide 80 MG TAB PO SCH (09:00)
[2019-04-21] MEDS: Gabapentin 300 MG CAP PO SCH ×3 (09:00→22:15)
[2019-04-21] MEDS: Potassium Chloride 10 MEQ TAB PO SCH (09:00)
[2019-04-21] MEDS: Spironolactone 25 MG TAB PO SCH (09:00)
[2019-04-21] MEDS: Oxybutynin ER 5 MG TAB PO SCH (09:00)
[2019-04-21] MEDS: Saccharomyces boulardii 250 MG CAP PO SCH (09:00)
[2019-04-21] MEDS: Citalopram 20 MG TAB PO SCH (09:00)
[2019-04-21] MEDS: Magnesium Oxide 400 MG TAB PO SCH (09:00)
[2019-04-21] MEDS: Cyclobenzaprine 10 MG TAB PO SCH ×3 (09:00→22:15)
[2019-04-21] MEDS ORDERED: Morphine 2 MG/ML SYRINGE SLOW IVP PRN (11:08)
[2019-04-21] MEDS ORDERED: Morphine 4 MG/ML VIAL SLOW IVP PRN (11:08)
[2019-04-21] MEDS ORDERED: hydrALAZINE 20 MG/ML VIAL SLOW IVP PRN (11:08)
[2019-04-21] MEDS ORDERED: D5 1/2 NS w/20 mEq KCL 0 ML ONE (11:21)
[2019-04-21] MEDS ORDERED: Bupivacaine HCl 0.5%/Epinephrine 1:200,000/PF 30 ml Vial ONE (11:30)
[2019-04-21] MEDS ORDERED: Famotidine/PF 20 mg/2ml Vial SLOW IVP SCH ×2 (12:00→21:00)
[2019-04-21] MEDS: NS 0.9% w/ 20 MEQ KCL 1,000 ML/1,000 ML BAG IV SCH ×2 (12:14→22:16)
[2019-04-21] MEDS: Ketorolac Tromethamine 30 MG/ML VIAL IVP SCH ×3 (12:20→23:37)
[2019-04-21] MEDS: HumaLOG 300 UNITS/3 ML VIAL SC PRN ×3 (12:21→22:20)
[2019-04-21] MEDS ORDERED: PHENYLEPHRINE-NS 100 MCG/ML 10 ML SYRINGE ONE (12:37)
[2019-04-21] MEDS ORDERED: Metoclopramide HCl 10 MG/2 ML VIAL ONE (12:37)
[2019-04-21] MEDS ORDERED: Lidocaine 1% PF 5 ML VIAL ONE (12:37)
[2019-04-21] MEDS ORDERED: PROPOFOL 200 MG/20 ML VIAL ONE (12:37)
[2019-04-21] MEDS ORDERED: Glycopyrrolate 0.2 MG/ML 5 ML SYRINGE ONE (12:37)
[2019-04-21] MEDS ORDERED: Ondansetron PF 4 MG/2 ML Vial ONE (12:37)
[2019-04-21] MEDS ORDERED: Ketorolac Tromethamine 30 MG/ML VIAL ONE (12:37)
[2019-04-21] MEDS ORDERED: Rocuronium Bromide 10 MG/ML (10ML VIAL) ONE (12:37)
[2019-04-21] MEDS ORDERED: PROVENTIL INHALER 6.7 G (200 INHALATIONS) ONE (12:37)
[2019-04-21] MEDS: Acetaminophen 1,000 MG in Premix Bag 1 BAG IVPB SCH ×2 (14:49→22:16)
--- NOTE | 2019-04-21 16:19 | OP ---
DATE OF PROCEDURE: 04/21/2019 PREOPERATIVE DIAGNOSIS: Sigmoid colon volvulus. POSTOPERATIVE DIAGNOSIS: Sigmoid colon volvulus. PROCEDURE PERFORMED: Laparoscopic-assisted sigmoid colectomy. ANESTHESIA: General endotracheal. CCNP: Zhen Thomas, medical student. INDICATIONS: The patient is a 54-year-old morbidly obese white male, who presented to this hospitalization with a sigmoid colon volvulus. This was successfully decompressed by Gastroenterology. He tolerated a bowel prep yesterday and is taken to the operating at this time for laparoscopic-assisted sigmoid colectomy. DESCRIPTION OF PROCEDURE: Informed consent was obtained. The patient was taken to the operating room, where general endotracheal anesthesia was obtained with the patient in supine position. His suprapubic catheter was cleansed, prepped, and excluded from the field with an occlusive dressing. The abdomen was prepped with ChloraPrep and draped in sterile fashion. Local anesthetic was infiltrated, and 5 mm supraumbilical incision was created through which a Veress needle was passed into the peritoneal cavity. Pneumoperitoneum was established using carbon dioxide up to pressure of 15 mmHg. A 5-mm trocar port was passed through the same incision. Laparoscopic camera was passed through this port. Under direct vision, an additional 5 mm right lower quadrant port was placed. The abdomen was explored. There was a massively distended segment of sigmoid colon that extended into the right upper quadrant out of the pelvis. There were no adhesions to the anterior abdominal wall. I selected an extraction site in the left lower quadrant. An 8 cm oblique incision was created, and muscle-splitting was used to gain access into the abdominal cavity. The Asaf wound retractor was placed, and GelPort was placed on this. The colon was then traced laparoscopically, and it was confirmed that the left colon was clearly visualized and extended directly into the massively distended segment of colon and was, therefore, confirmed to be the distended sigmoid colon. The colon was then exteriorized through the Asaf wound retractor. I was able to easily withdraw the descending colon and the entire sigmoid colon as it extended down toward the rectum. Towels were placed around the Asaf wound retractor, and segregated instruments were utilized. I created a double-stapled anastomosis in a [id number], functional, end-to-end fashion between the descending colon and the distal sigmoid colon. The stapler that had been opened at the beginning of the case was the laparoscopic 60 mm stapler. Two loads of this were utilized to create the anastomosis, and then the transection to remove the enterotomies and the distended segment was accomplished with another two loads of the stapler. The mesentery was taken down with the LigaSure device, and the specimen was passed off the field. All the towels and segregated instruments were passed off as well. Gloves were changed, and the operation was continued. The anastomosis was buttressed with multiple interrupted sutures of 3-0 silk. The mesenteric defect was not closed. The colon was then dropped back down to the abdominal cavity. Laparoscopy was reinstituted. The abdomen was explored, there was found to be no irregularities. I did notice that a mesenteric vessel began bleeding spontaneously as I was inspecting, this was quickly grasped and controlled with LigaSure. The area was irrigated, and all irrigant was aspirated. All ports and instruments were removed under direct vision. Pneumoperitoneum was carefully evacuated. The Asaf wound retractor was removed. The abdomen was cleansed with saline. All laparoscopic instrumentation was passed off the field. Gowns and gloves were changed. Light handles were changed. Towels were placed around the operative site. The fascia in the left lower quadrant incision was closed in 2 layers with #1 running PDS suture. The wound was copiously irrigated with 2 L of saline. Additional local anesthetic was infiltrated in the interfascial plane. Jaskaran's was approximated with interrupted sutures of 3-0 Vicryl and skin edges were approximated with running subcuticular suture of 4-0 Monocryl. Dermabond was placed externally. The other port sites were closed with Monocryl and Dermabond as well. There were no complications. Blood loss was negligible. The patient tolerated the procedure well and was taken to recovery in stable condition. Job ID: [id number]
[2019-04-21] MEDS: Enoxaparin Sodium 40 MG/0.4 ML SYRINGE SC SCH (22:15)
[2019-04-21] MEDS: Famotidine 20 MG TAB PO SCH (22:15)
[2019-04-22] MEDS: Acetaminophen 1,000 MG in Premix Bag 1 BAG IVPB SCH ×2 (03:33→09:19)
[2019-04-22 05:17] LABS: Anion Gap 12 mmol/L (10-20); BUN (Urea Nitrogen) 4 mg/dL (8.4-25.7); Calc. Creatinine Clearance 305 mL/min (70-130); Calcium 7.6 mg/dL (7.8-10.44); Carbon Dioxide 27 mmol/L (22-29); Chloride 102 mmol/L (98-107); Estimated GFR-MDRD Greater than 90; Glucose 176 mg/dL (70-105); Potassium 4.3 mmol/L (3.5-5.1); Sodium 137 mmol/L (136-145)
[2019-04-22] MEDS: Ketorolac Tromethamine 30 MG/ML VIAL IVP SCH ×3 (05:22→17:23)
[2019-04-22 05:33] LABS: #Eosinphils 0.6 thou/uL (0.0-0.7); #Lymphocytes 1.5 thou/uL (1.20-3.40); #Monocytes 1.3 thou/uL (0.11-0.59); #Neutrophils 10.4 thou/uL (1.40-6.50); %Eosinophils 4.1 % (0.0-10.0); %Monocytes 9.2 % (0.0-10.0); %Neutrophils 75.8 % (42.0-75.0); Mean Corpuscular HGB CONC 31.5 g/dL (32.0-36.0); Mean Corpuscular Hemoglobin 27.7 pg (27.0-31.0); Mean Corpuscular Volume 88.1 fL (78.0-98.0); Mean Platelet Volume 7.6 fL (7.4-10.4); Platelet Count 220 thou/uL (130-400); RBC Distribution Width 13.4 % (11.5-14.5); RBC Morphology Normal; Red Blood Cell (RBC) Count 4.32 mill/uL (4.70-6.10); White Blood Cell (WBC) Count 13.7 thou/uL (4.8-10.8)
[2019-04-22] MEDS: HumaLOG 300 UNITS/3 ML VIAL SC PRN ×3 (05:42→17:24)
[2019-04-22] MEDS: NS 0.9% w/ 20 MEQ KCL 1,000 ML/1,000 ML BAG IV SCH ×3 (06:50→18:12)
--- NOTE | 2019-04-22 06:51 | PDOC.FM ---
- Subjective Subjective: No overnight events. Pain well controlled with medications. Tolerating clear liquid diet. Continues to have frequent diarrhea. - Objective MAR Reviewed: Yes Vital Signs & Weight: Vital Signs (12 hours) Temp Pulse Resp BP Pulse Ox 04/22/19 04:00 98.9 F 79 16 120/62 95 04/21/19 23:02 98.1 F 72 19 178/75 H 97 04/21/19 20:21 97.8 F 76 19 105/64 98 04/21/19 19:24 74 16 97 Weight Admit Weight 163.339 kg Weight 163.339 kg I&O: 04/20/19 04/21/19 04/22/19 06:59 06:59 06:59 Intake Total 6490 1850 Output Total 2850 700 Balance 3640 1150 Result Diagrams: 04/22/19 04:39 04/22/19 04:39 Phys Exam - Physical Examination Constitutional: NAD HEENT: moist MMs Neck: supple Respiratory: no wheezing, clear to auscultation bilateral Cardiovascular: RRR, no significant murmur Gastrointestinal: soft hypoactive bowel sounds. Tympanic to percussion. Incisions clean & intact Musculoskeletal: no edema Neurological: moves all 4 limbs Psychiatric: normal affect, A&O x 3 Skin: no rash Dx/Plan - Plan Plan: Sigmoid Volvulus - Endoscopically reduced volvulus and decompressed colon by GI on 04/20 - Surgery consulted, sigmoid colectomy 04/21 Paraplegia - neurogenic bladder - Continue suprapubic catheter care DM - Cont home Metformin - Will add 5U Lantus - Mild SSI HTN - Continue home meds Addendum - Attending - Attending Attestation Date/Time: 04/22/19 0930 I personally evaluated the patient and discussed the management with Dr. Last I agree with the History, Examination, Assessment and Plan documented above with any addition or exceptions noted below. HD#2 Patient doing well. No acute events. Gen surg to add diet today. Will add Lantus 10 units due to glucose readings. Continue to follow. Moody
[2019-04-22] MEDS ORDERED: Insulin Glargine 5 UNITS in Pre-Filled Syringe 1 EACH SC SCH ×2 (09:00→10:45)
[2019-04-22] MEDS: Lubiprostone 8 MCG CAP PO SCH ×2 (09:18→20:53)
[2019-04-22] MEDS: Citalopram 20 MG TAB PO SCH (09:19)
[2019-04-22] MEDS: Cyclobenzaprine 10 MG TAB PO SCH ×3 (09:19→20:51)
[2019-04-22] MEDS: Oxybutynin ER 5 MG TAB PO SCH (09:19)
[2019-04-22] MEDS: Famotidine 20 MG TAB PO SCH ×2 (09:19→20:51)
[2019-04-22] MEDS: Gabapentin 300 MG CAP PO SCH ×3 (09:19→20:51)
[2019-04-22] MEDS: Furosemide 80 MG TAB PO SCH (09:23)
[2019-04-22] MEDS: Spironolactone 25 MG TAB PO SCH (11:23)
[2019-04-22] MEDS ORDERED: HYDROcodone/Acetaminophen 7.5/325 mg Tablet PO PRN (13:00)
[2019-04-22] MEDS: Enoxaparin Sodium 40 MG/0.4 ML SYRINGE SC SCH (20:51)
[2019-04-22] MEDS: HYDROcodone/Acetaminophen 7.5/325 mg Tablet PO PRN (22:02)
[2019-04-23] MEDS: Ketorolac Tromethamine 30 MG/ML VIAL IVP SCH ×4 (00:33→17:56)
[2019-04-23] MEDS: NS 0.9% w/ 20 MEQ KCL 1,000 ML/1,000 ML BAG IV SCH (04:51)
[2019-04-23] MEDS: HYDROcodone/Acetaminophen 7.5/325 mg Tablet PO PRN ×2 (04:51→09:30)
--- NOTE | 2019-04-23 05:57 | PDOC.FM ---
- Subjective Subjective: No overnight events. Reports some side pain but it is relieved with medications. Tolerating diet. Does report some difficulty swallowing therefore speech has been consulted. Continues to have diarrhea. Reports wheezing has improved. - Objective MAR Reviewed: Yes Vital Signs & Weight: Vital Signs (12 hours) Temp Pulse Resp BP Pulse Ox 04/23/19 04:38 97.9 F 89 18 104/53 L 92 L 04/23/19 00:00 98.1 F 83 16 126/78 92 L 04/22/19 20:32 98.1 F 78 16 119/69 89 L 04/22/19 20:18 98.1 F 78 18 119/69 89 L 04/22/19 20:00 93 L Weight Admit Weight 163.339 kg Weight 163.339 kg I&O: 04/21/19 04/22/19 04/23/19 06:59 06:59 06:59 Intake Total 6490 1850 1447 Output Total 2850 700 1425 Balance 3640 1150 22 Result Diagrams: 04/22/19 04:39 04/22/19 04:39 Phys Exam - Physical Examination Constitutional: NAD HEENT: moist MMs Neck: supple Respiratory: no wheezing, clear to auscultation bilateral Cardiovascular: RRR, no significant murmur Gastrointestinal: soft tympanic to percussion, incisions clean and intact Musculoskeletal: pulses present Neurological: moves all 4 limbs Psychiatric: normal affect, A&O x 3 Skin: normal turgor Dx/Plan - Plan Plan: Sigmoid Volvulus - Endoscopically reduced volvulus and decompressed colon by GI on 04/20 - Surgery consulted, sigmoid colectomy 04/21 Paraplegia - neurogenic bladder - Continue suprapubic catheter care DM - Cont home Metformin - Lantus 14U daily - SSI HTN - Continue home meds
[2019-04-23] MEDS: HumaLOG 300 UNITS/3 ML VIAL SC PRN ×4 (06:35→21:24)
[2019-04-23] MEDS ORDERED: Insulin Glargine 10 UNITS in Pre-Filled Syringe 1 EACH SC SCH (09:00)
[2019-04-23] MEDS ORDERED: Insulin Glargine 14 UNITS in Pre-Filled Syringe SC SCH (09:00)
[2019-04-23] MEDS: Citalopram 20 MG TAB PO SCH (09:32)
[2019-04-23] MEDS: Oxybutynin ER 5 MG TAB PO SCH (09:32)
[2019-04-23] MEDS: Spironolactone 25 MG TAB PO SCH (09:32)
[2019-04-23] MEDS: Cyclobenzaprine 10 MG TAB PO SCH ×3 (09:32→20:19)
[2019-04-23] MEDS: Famotidine 20 MG TAB PO SCH ×2 (09:33→20:19)
[2019-04-23] MEDS: Gabapentin 300 MG CAP PO SCH ×3 (09:33→20:19)
[2019-04-23] MEDS: Furosemide 80 MG TAB PO SCH (09:33)
[2019-04-23] MEDS: Lubiprostone 8 MCG CAP PO SCH ×2 (09:33→20:19)
[2019-04-23] MEDS ORDERED: Acetaminophen 500 MG TAB PO PRN (11:19)
[2019-04-23] MEDS ORDERED: traMADol HCl 50 MG TAB PO PRN (11:19)
--- NOTE | 2019-04-23 11:31 | PRG ---
DATE OF SERVICE: 04/23/2019 SUBJECTIVE: Raúl Lock is doing well today. He is status post sigmoid resection for volvulus. OBJECTIVE: VITAL SIGNS: Temperature 98.8 degrees, heart rate 82, blood pressure 101/69. LUNGS: Clear to auscultation. CARDIAC: Regular rate rhythm without murmur or gallop. ABDOMEN: Soft, slightly tympanitic, protuberant, obese. EXTREMITIES: Unremarkable. LABORATORY DATA: None today. ASSESSMENT AND PLAN: Status post sigmoid volvulus with sigmoid resection and anastomosis. We would recommend that he continue his IV fluids and full liquids. We will not advance him at this time. He is on gabapentin 300 t.i.d. We will add Tylenol and Ultram, and try to avoid hydrocodone and avoid morphine. Job ID: [id number]
[2019-04-23] MEDS: Potassium Chloride 20 MEQ in Lactated Ringer's 1,000 ML IV SCH (12:06)
--- NOTE | 2019-04-23 18:05 | PRG ---
DATE OF SERVICE: 04/23/2019 Please see the note from Dr. Christina Last, for which I agree. The patient was seen, evaluated, discussed, and examined with the patient by bedside. This gentleman came in with a sigmoid volvulus and eventually had a sigmoid removed. He is chronically in the senior living for being intellectually disabled. We are postop day, I believe 2 and just slowly re-feeding him and just kind of watching him postoperatively and sounds like he generally speaking has been doing okay. He has chronic paraplegia and suprapubic catheter, but that is stable. No evidence of infection. Standard postoperative care, slowly wake up his gut again and back to the senior living beginning next week. Continuing monitoring his blood sugar and keeping on Lantus. Job ID: [id number]
[2019-04-23] MEDS: Enoxaparin Sodium 40 MG/0.4 ML SYRINGE SC SCH (20:19)
[2019-04-24] MEDS: Ketorolac Tromethamine 30 MG/ML VIAL IVP SCH ×3 (01:00→12:13)
[2019-04-24] MEDS: HumaLOG 300 UNITS/3 ML VIAL SC PRN ×2 (06:09→17:12)
--- NOTE | 2019-04-24 06:16 | PDOC.FM ---
- Subjective Subjective: No overnight events. Pain is well controlled with medications. Alberto was d/c'ed yesterday and he is currently on Tramadol, Gabapentin, Tylenol and Toradol for pain. Tolerating full liquid diet. Reports having BMs but not passing gas. Reports abdomen more distended today. - Objective MAR Reviewed: Yes Vital Signs & Weight: Vital Signs (12 hours) Temp Pulse Resp BP Pulse Ox 04/24/19 03:52 97.9 F 87 16 137/101 H 92 L 04/23/19 23:44 97.8 F 80 20 132/86 94 L 04/23/19 20:00 96 04/23/19 19:59 98.2 F 81 16 124/72 96 Weight Admit Weight 163.339 kg Weight 163.339 kg I&O: 04/22/19 04/23/19 04/24/19 06:59 06:59 06:59 Intake Total 1850 1447 2340 Output Total 700 1425 2300 Balance 1150 22 40 Result Diagrams: 04/22/19 04:39 04/22/19 04:39 Phys Exam - Physical Examination Constitutional: NAD HEENT: moist MMs Neck: supple Respiratory: no wheezing, clear to auscultation bilateral Cardiovascular: RRR, no significant murmur Gastrointestinal: positive bowel sounds Distended, tympanic. Incisions clean, intact Musculoskeletal: no edema Neurological: moves all 4 limbs Psychiatric: normal affect, A&O x 3 Skin: no rash Dx/Plan - Plan Plan: Sigmoid Volvulus - Endoscopically reduced volvulus and decompressed colon by GI on 04/20 - Surgery consulted, sigmoid colectomy 04/21 - Full liquid diet Paraplegia - neurogenic bladder - Continue suprapubic catheter care DM - Cont home Metformin - Lantus 20U daily - SSI HTN - Continue home meds
[2019-04-24] MEDS: Potassium Chloride 20 MEQ in Lactated Ringer's 1,000 ML IV SCH ×3 (06:34→15:22)
[2019-04-24] MEDS: Insulin Glargine 20 UNITS in Pre-Filled Syringe 1 EACH SC SCH (09:37)
[2019-04-24] MEDS: Oxybutynin ER 5 MG TAB PO SCH (09:38)
[2019-04-24] MEDS: Famotidine 20 MG TAB PO SCH (09:38)
[2019-04-24] MEDS: Spironolactone 25 MG TAB PO SCH (09:38)
[2019-04-24] MEDS: Citalopram 20 MG TAB PO SCH (09:38)
[2019-04-24] MEDS: Gabapentin 300 MG CAP PO SCH (09:38)
[2019-04-24] MEDS: Cyclobenzaprine 10 MG TAB PO SCH (09:38)
[2019-04-24] MEDS: Lubiprostone 8 MCG CAP PO SCH (09:38)
[2019-04-24] MEDS: Furosemide 80 MG TAB PO SCH (09:39)
--- NOTE | 2019-04-24 11:03 | RAD ---
KUB: Date: 04/24/19 COMPARISON: 07/28/18. HISTORY: Abdominal distention. FINDINGS: Supine imaging is provided, which limits detailed assessment for free intraperitoneal air and small b owel obstruction. There is gaseous distention of bowel throughout the abdomen/pelvis, which appears t o represent a combination of large and small bowel, felt to primarily represent diffuse nonspecific d ilation of the colon. Etiology is uncertain on the basis of this exam. There is degenerative change i nvolving the lumbar spine and bilateral hips, incompletely assessed on this exam. IMPRESSION: There is diffuse gaseous distention of bowel throughout the abdomen/pelvis as detailed above. POS: HELENE
--- NOTE | 2019-04-24 14:01 | RAD ---
KUB: DATE: 04/24/19 TIME: 1238 HOURS COMPARISON: 04/24/19 1002 HOURS HISTORY: Evaluate following nasogastric tube placement. FINDINGS: Semiupright imaging limits assessment for free air and small bowel obstruction. The provided image on ly evaluates the left upper quadrant. There is a nasogastric tube in place which appears to be within the gastric body or fundus. IMPRESSION: Nasogastric tube as detailed above. POS: NATALYA
--- NOTE | 2019-04-24 15:54 | PRG ---
DATE OF SERVICE: 04/24/2019 SUBJECTIVE: Raúl Lock has developed a distended abdomen and nausea has resolved. He has had some dyspnea. NG tube was placed and this relieved much of his discomfort. He is able to breathe much easier and feels much better. OBJECTIVE: VITAL SIGNS: Temperature 98.1 degrees, pulse 74, blood pressure 155/94. Since the NG tube placement has been performed, he has had about 200 to 300 out. Accu-Cheks 170 to 209. LUNGS: Clear to auscultation. CARDIAC: Regular rate and rhythm without murmur or gallop. ABDOMEN: Massively distended, tympanitic, but no guarding. Surgical wounds look good. EXTREMITIES: Unremarkable. Abdominal x-ray this morning revealed diffuse small bowel loop and colon distention post NG tube placement abdominal x-rays within the gastric body. ASSESSMENT AND PLAN: Postoperative ileus. Continue NG tube to suction. We will allow him to have ice chips. Increase activity. Make him n.p.o. Job ID: [id number]
[2019-04-24] MEDS: Enoxaparin Sodium 40 MG/0.4 ML SYRINGE SC SCH (20:38)
[2019-04-24] MEDS ORDERED: Acetaminophen 650 MG in Premix Bag 1 BAG IVPB PRN (22:26)
[2019-04-24] MEDS ORDERED: Morphine 4 MG/ML VIAL SLOW IVP PRN (22:28)
[2019-04-24] MEDS: Ketorolac Tromethamine 30 MG/ML VIAL IVP PRN (23:13)
[2019-04-25] MEDS: Potassium Chloride 20 MEQ in Lactated Ringer's 1,000 ML IV SCH ×4 (05:36→18:53)
[2019-04-25] MEDS: HumaLOG 300 UNITS/3 ML VIAL SC PRN (06:30)
--- NOTE | 2019-04-25 06:36 | PDOC.FM ---
- Subjective Subjective: Pt has developed a postop ileus and currently has NG tube and tolerating ice chips. Denies pain but reports distension. Has had a couple episodes of diarrhea this morning and last night but denies passing gas. - Objective MAR Reviewed: Yes Vital Signs & Weight: Vital Signs (12 hours) Temp Pulse Resp BP Pulse Ox 04/25/19 03:59 98.6 F 85 16 115/71 93 L 04/25/19 00:03 98.6 F 92 16 111/72 94 L 04/24/19 20:00 98.2 F 93 18 123/69 98 Weight Admit Weight 163.339 kg Weight 163.339 kg I&O: 04/23/19 04/24/19 04/25/19 06:59 06:59 06:59 Intake Total 1447 4240 1515 Output Total 1425 4509 1600 Balance 22 -285 -85 Result Diagrams: 04/25/19 10:08 04/25/19 10:08 Phys Exam - Physical Examination Constitutional: NAD HEENT: moist MMs Neck: supple Respiratory: no wheezing, clear to auscultation bilateral Cardiovascular: RRR, no significant murmur Distended, tympanic Musculoskeletal: no edema Neurological: moves all 4 limbs Psychiatric: normal affect, A&O x 3 Skin: no rash Dx/Plan - Plan Plan: POD #4 sigmoid colectom for Sigmoid Volvulus - Endoscopically reduced volvulus and decompressed colon by GI on 04/20 - Surgery consulted, sigmoid colectomy 04/21 - Ice chips only - NG tube in place due to postop ileus Paraplegia - neurogenic bladder - Continue suprapubic catheter care DM - Cont home Metformin - Lantus 20U daily - SSI HTN - Continue home meds Addendum - Attending - Attending Attestation Date/Time: 04/25/19 0904 I personally evaluated the patient and discussed the management with Dr. Last. I agree with the History, Examination, Assessment and Plan documented above with any addition or exceptions noted below. The patient's abdomen is firm and distended, ng tube in place. will f/u with surgery recs.
[2019-04-25] MEDS: Citalopram 20 MG TAB PO SCH (09:19)
[2019-04-25] MEDS: Insulin Glargine 20 UNITS in Pre-Filled Syringe 1 EACH SC SCH (09:19)
--- NOTE | 2019-04-25 09:46 | PRG ---
DATE OF SERVICE: 04/25/2019 SUBJECTIVE: Mr. Lock is postoperative day #4 from a laparoscopic sigmoid colectomy for sigmoid volvulus. He developed abdominal distention and a nasogastric tube was placed yesterday. He has apparently had a couple of bowel movements yesterday and/or this morning. He is resting in bed with nasogastric tube in place and does not seem to be uncomfortable. He is taking ice chips. The nasogastric aspirate appears to primarily be the ice chips that he is swallowing. PHYSICAL EXAMINATION: VITAL SIGNS: He is afebrile with temperature 97.7, pulse is 93, blood pressure 125/71. LUNGS: Clear to auscultation anteriorly. CARDIAC: Regular rate and rhythm. ABDOMEN: Grossly distended and tympanitic. His incisions appear to be healing nicely. He does have bowel sounds intact. LABORATORY DATA: His labs are pending from today. Apparently, Laboratory is having difficulty drawn his labs related to his obesity apparently. ASSESSMENT: The patient with postoperative ileus. Given his multiple risk factors (paraplegia, obesity, diabetes mellitus), this is not particularly surprising. If his white blood cell count is elevated, I will get a CT scan to rule out a leak. Job ID: [id number]
[2019-04-25 10:24] LABS: #Eosinphils 0.1 thou/uL (0.0-0.7); #Lymphocytes 1.1 thou/uL (1.20-3.40); #Monocytes 1.2 thou/uL (0.11-0.59); %Basophils 0.3 % (0.0-1.0); %Eosinophils 0.8 % (0.0-10.0); %Lymphocytes 8.5 % (21.0-51.0); %Monocytes 8.9 % (0.0-10.0); %Neutrophils 81.5 % (42.0-75.0); Hemoglobin 9.6 g/dL (14.0-18.0); Mean Corpuscular HGB CONC 32.3 g/dL (32.0-36.0); Mean Corpuscular Hemoglobin 28.6 pg (27.0-31.0); Mean Corpuscular Volume 88.3 fL (78.0-98.0); Mean Platelet Volume 6.8 fL (7.4-10.4); Platelet Count 316 thou/uL (130-400); RBC Distribution Width 13.9 % (11.5-14.5); Red Blood Cell (RBC) Count 3.36 mill/uL (4.70-6.10); White Blood Cell (WBC) Count 13.5 thou/uL (4.8-10.8)
[2019-04-25 10:45] LABS: ALT (SGPT) 14 U/L (8-55); AST (SGOT) 21 U/L (5-34); Albumin 3.2 g/dL (3.5-5.0); Alkaline Phosphatase 87 U/L (40-110); Anion Gap 11 mmol/L (10-20); BUN (Urea Nitrogen) 5 mg/dL (8.4-25.7); Bilirubin, Total 0.5 mg/dL (0.2-1.2); Calc. Creatinine Clearance 264 mL/min (70-130); Calcium 8.4 mg/dL (7.8-10.44); Carbon Dioxide 29 mmol/L (22-29); Chloride 102 mmol/L (98-107); Estimated GFR-MDRD Greater than 90; Globulin 2.8 g/dL (2.4-3.5); Glucose 155 mg/dL (70-105); Potassium 3.7 mmol/L (3.5-5.1); Sodium 138 mmol/L (136-145)
[2019-04-25] MEDS: Acetaminophen 1,000 MG in Premix Bag 1 BAG IVPB PRN ×2 (12:20→23:40)
--- NOTE | 2019-04-25 13:55 | PRG ---
DATE OF SERVICE: 04/24/2019 He comes in after sigmoid resection after volvulus. Seems a little bit more distended, having no more abdominal discomfort. He does state that he was having bowel movements and the nurses have been noting it, but on exam, extremely distended abdomen with very distant breath sounds. We then got an x-ray, which shows ileus, but there seems to be air all the way through. I do not see any air-fluid levels, although difficult exam secondary to body habitus. PLAN: Continue same postoperative care. Certainly if he starts vomiting, we may have to consider an NG tube just to decompress them. We will see also what Surgery says. We will continue same medicines including insulin controlled Lantus. Job ID: [id number]
[2019-04-25] MEDS: Ondansetron PF 4 MG/2 ML Vial IVP PRN (18:55)
[2019-04-25] MEDS: Enoxaparin Sodium 40 MG/0.4 ML SYRINGE SC SCH (20:25)
[2019-04-26] MEDS: Acetaminophen 1,000 MG in Premix Bag 1 BAG IVPB PRN (04:59)
[2019-04-26] MEDS: Potassium Chloride 20 MEQ in Lactated Ringer's 1,000 ML IV SCH ×2 (04:59→18:01)
[2019-04-26 05:24] LABS: #Eosinphils 0.2 thou/uL (0.0-0.7); #Lymphocytes 1.5 thou/uL (1.20-3.40); #Monocytes 1.3 thou/uL (0.11-0.59); #Neutrophils 10.9 thou/uL (1.40-6.50); %Basophils 0.3 % (0.0-1.0); %Eosinophils 1.7 % (0.0-10.0); %Monocytes 9.5 % (0.0-10.0); %Neutrophils 77.6 % (42.0-75.0); Hemoglobin 8.4 g/dL (14.0-18.0); Mean Corpuscular HGB CONC 31.2 g/dL (32.0-36.0); Mean Corpuscular Hemoglobin 27.3 pg (27.0-31.0); Mean Corpuscular Volume 87.5 fL (78.0-98.0); Mean Platelet Volume 6.6 fL (7.4-10.4); Platelet Count 309 thou/uL (130-400); RBC Distribution Width 14.2 % (11.5-14.5); Red Blood Cell (RBC) Count 3.07 mill/uL (4.70-6.10)
[2019-04-26 05:42] LABS: Anion Gap 11 mmol/L (10-20); BUN (Urea Nitrogen) 5 mg/dL (8.4-25.7); Calc. Creatinine Clearance 300 mL/min (70-130); Calcium 8.2 mg/dL (7.8-10.44); Carbon Dioxide 30 mmol/L (22-29); Chloride 103 mmol/L (98-107); Estimated GFR-MDRD Greater than 90; Glucose 154 mg/dL (70-105); Potassium 3.7 mmol/L (3.5-5.1); Sodium 140 mmol/L (136-145)
--- NOTE | 2019-04-26 06:39 | PDOC.FM ---
- Subjective Subjective: No overnight events. NG tube has been clamped. He does report some nausea. Denies abdominal pain. Continues to have distension. Will be going for CT scan this morning of abdomen. - Objective MAR Reviewed: Yes Vital Signs & Weight: Vital Signs (12 hours) Temp Pulse Resp BP Pulse Ox 04/26/19 03:45 97.9 F 87 18 132/73 93 L 04/25/19 23:32 98.9 F 93 16 122/74 92 L 04/25/19 20:06 97.9 F 94 16 164/77 H 98 04/25/19 20:00 98 Weight Admit Weight 163.339 kg Weight 163.339 kg I&O: 04/24/19 04/25/19 04/26/19 06:59 06:59 06:59 Intake Total 4240 1515 4740 Output Total 4525 1600 2150 Balance -285 -85 2590 Result Diagrams: 04/26/19 05:10 04/26/19 05:10 Phys Exam - Physical Examination Constitutional: NAD HEENT: moist MMs Neck: supple Respiratory: no wheezing, clear to auscultation bilateral Cardiovascular: RRR, no significant murmur Gastrointestinal: non-tender, positive bowel sounds distended Musculoskeletal: no edema Neurological: moves all 4 limbs Psychiatric: normal affect, A&O x 3 Skin: no rash Dx/Plan - Plan Plan: POD #5 sigmoid colectom for Sigmoid Volvulus - Endoscopically reduced volvulus and decompressed colon by GI on 04/20 - Surgery consulted, sigmoid colectomy 04/21 - Ice chips only - NG tube in place due to postop ileus Leukocytosis - CT to eval for possible leak today Anemia - Pt with mild anemia at admission 12.6 -> 8.4 post op - Will obtain iron studies - Start iron supplementation once tolerating PO Paraplegia - neurogenic bladder - Continue suprapubic catheter care DM - Cont home Metformin - Lantus 20U daily - SSI HTN - Continue home meds Addendum - Attending - Attending Attestation Date/Time: 04/26/19 0905 I personally evaluated the patient and discussed the management with Dr. Last. I agree with the History, Examination, Assessment and Plan documented above with any addition or exceptions noted below. Pt with persistent leukocytosis. Going to CT abdomen today. Will f/u with surgery recs.
--- NOTE | 2019-04-26 09:37 | CT ---
EXAM: CT ABDOMEN AND PELVIS HISTORY: Ileus. Paraplegic patient. Suprapubic catheter. Hernia repair. Evaluate for leak. COMPARISON: 04/19/2019 Procedure: Multiple contiguous axial images were obtained and a CT of the abdomen and pelvis with IV contrast. C oronal reformats were performed. FINDINGS: Lower Chest: Dependent atelectatic changes. Possibility of aspiration or pneumonia in the right lower lobe cannot be excluded. Vessels: Normal caliber aorta. No periaortic fat stranding Heart: Normal heart size. No pericardial fluid Abdomen: Portal vein:Patent Gallbladder: No calcified gallstones. Normal caliber wall. Liver: Diffuse hypoattenuation due to hepatic steatosis Pancreas: within normal limits. Spleen: within normal limits. Adrenals: within normal limits. Kidneys: Symmetric enhancement. No obstructive uropathy. Peritoneum: No ascites or free air, no fluid collection. Bowel: Gastric mucosa is unremarkable. Duodenum is unremarkable. Multiple normal caliber small bowel loops. No evidence of small bowel obstruction. Ileocecal junction is unremarkable. Normal caliber appendix. Scattered fecal material in a nondistended, nondilated colon. Mild prominence due to air is nonspecific. There appears to be anastomosis at the level of the junction of the descending colon and sigmoid colon which has developed since the previous examination. No obvious adjacent free air or fluid collections. Presence or absence of leak is difficult to assess due to lack of oral contrast opacification. Attempt to administer rectal contrast was unsuccessful.. Mesentery and Retroperitoneum: No enlarged mesenteric or retroperitoneal lymph nodes. Abdominal Wall: Mixed attenuation focus in the anterior left abdominal wall, likely representing a he matoma. Small pockets of air attenuation are noted. Correlate for possible recent surgery. Hematoma measures at least 12.9 x 9.1 cm. Abnormal attenuation involves the subcutaneous fat to the level of t he dermis. Pelvis: Reproductive Organs: Reproductive organs are unremarkable. Pelvis: No mass, lymphadenopathy, free air or free fluid. Bladder: Suprapubic catheter is redemonstrated. Bones: within normal limits. IMPRESSION: 1. Surgical resection of the left hemicolon. Anastomotic chain is identified. No evidence of pneumope ritoneum or infected fluid collection. Limited evaluation for leak due to inability to administer rectal contrast 2. Postoperative hematoma in the anterior left abdominal wall. 3. Additional findings as above Transcribed Date/Time: 04/26/2019 9:42 AM
--- NOTE | 2019-04-26 09:44 | PRG ---
DATE OF SERVICE: 04/26/2019 SUBJECTIVE: The patient feeling fatigued, no significant complaints. I was called by nursing staff, as she was concerned regarding decreased output from the SP tube. However, chart review demonstrates adequate output, nursing staff prior did flush the SP tube with no significant issues. As she was concerned regarding the recent culture obtained by [facility] of the SP tube site, urine culture, contacted me regarding our concerns. The patient is currently not on any antibiotics. Chart reviewed, the patient underwent general surgery evaluation and surgical intervention due to recurrent sigmoid volvulus. Due to mild leukocytosis, followup CT is planned to rule out anastomotic leak. OBJECTIVE: VITAL SIGNS: Stable. He is afebrile. I's and O's 1300 over 24 hours with sediment. ABDOMEN: Morbidly obese, protuberant, distended, SP tube site demonstrates some chronic irritative changes, however, no significant fluctuance. No significant discharge appreciated. Pre-existing SP tube was flushed with no significant obstruction per se. A new SP tube 28-Kiswahili 30 mL with 35 mL instilled into the balloon, inflated and replaced without significant issues. Pre-existing SP tube does not demonstrate any evidence of encrustation. New catheter was flushed and attached to [employer]. PERTINENT LABORATORY DATA: White count 14, hemoglobin 8.4, and platelets 209. Creatinine is 0.6. Cultures; urine culture with Proteus E coli. SP tube site demonstrates MRSA, Pseudomonas, Proteus, gram-negative nam. On admission, CT was obtained of the abdomen and pelvis demonstrating no stones of concern in the bladder or kidney dated April 19. IMPRESSION AND PLAN: Raúl is a 54-year-old male with neurogenic bladder, with chronic SP tube. He may come see me as planned on May 12 at 10:15 for interval suprapubic tube exchange and reassessment. Current SP tube changed as there was concern by nursing staff regarding suboptimal drainage. No further recommendation. From my perspective, culture from his SP tube site nor his urine culture needs to be treated as it is colonized. will sign off, call if questions or concerns. Job ID: [id number] [facility]
[2019-04-26] MEDS: Insulin Glargine 20 UNITS in Pre-Filled Syringe 1 EACH SC SCH (10:47)
[2019-04-26] MEDS: Citalopram 20 MG TAB PO SCH (10:47)
[2019-04-26 15:01] LABS: Iron 30 ug/dL (65-175); Iron Binding Capacity, Total 268 mcg/dL (261-462)
--- NOTE | 2019-04-26 15:57 | PRG ---
DATE OF SERVICE: 04/26/2019 SUBJECTIVE: Mr. Lock is postoperative day #5 from a laparoscopic-assisted sigmoid colectomy. Although, he seemed to do well initially, he developed what was felt to likely be an ileus requiring nasogastric tube placement. He developed leukocytosis and as of yesterday, also developed anemia with a hemoglobin dropping from 12 down to 9.6 over the course of 3 days. This morning, his hemoglobin is 8.4. I obtained a CT scan today, which reveals that he has a substantial left rectus sheath hematoma as the source of his anemia. His anastomosis appears to be patent and there was no evidence of perianastomotic inflammation or fluid. Yesterday, when I performed a rectal examination with dilatation, he expressed a large volume of gas and liquid stool. I am told he passed some liquid stool when he had his CT scan today when I attempted to use rectal contrast, but has had no other bowel movement that his nursing staff is aware of. OBJECTIVE: VITAL SIGNS: On examination, he is afebrile. Pulse 88, blood pressure 105/77. GENERAL: He is in good spirits and does not appear to be in any discomfort. LUNGS: Clear to auscultation. ABDOMEN: Morbidly obese and distended. He has very hypoactive bowel sounds. His incisions are healing nicely. He does appear to have some prominence around his left lower quadrant incision, likely related to the large underlying muscular hematoma. LABORATORY DATA: As mentioned, his hemoglobin today is 8.4 with a white blood cell count of 14.0. His basic metabolic panel is unremarkable with normal renal function. ASSESSMENT: The patient with anemia secondary to a left rectus hematoma. I will stop his Lovenox. For now, I would defer a wound exploration. I will follow serial hemoglobins to make sure that this bleeding has stopped. It is possible that his hematoma is what has led to his ileus. This is still prominent problem with severely distended colon and almost absent bowel sounds. Hopefully, his ileus will resolve quickly. Otherwise, he may need a decompressive colonoscopy. Job ID: [id number]
--- NOTE | 2019-04-26 16:26 | EKG ---
Test Reason : Blood Pressure : / mmHG Vent. Rate : 084 BPM Atrial Rate : 084 BPM P-R Int : 138 ms QRS Dur : 154 ms QT Int : 432 ms P-R-T Axes : 018 -46 021 degrees QTc Int : 510 ms Normal sinus rhythm Right bundle branch block Left axis deviation Lateral infarct , age undetermined cannot be excluded Abnormal ECG Confirmed by TENNILLE PEARCE ([id number]) on 04/26/2019 4:25:44 PM Referred By: JULI Confirmed By:TENNILLE PEARCE
[2019-04-26] MEDS: Ketorolac Tromethamine 30 MG/ML VIAL IVP PRN (18:01)
[2019-04-26] MEDS ORDERED: Iopamidol 370 76% 100 ML VIAL ONE (18:50)
[2019-04-27] MEDS ORDERED: Acetaminophen 1,000 MG in Premix Bag 1 BAG IVPB PRN (00:40)
[2019-04-27] MEDS: Potassium Chloride 20 MEQ in Lactated Ringer's 1,000 ML IV SCH ×4 (01:04→23:54)
[2019-04-27 06:33] LABS: ALT (SGPT) 13 U/L (8-55); AST (SGOT) 23 U/L (5-34); Albumin 3.1 g/dL (3.5-5.0); Alkaline Phosphatase 92 U/L (40-110); Anion Gap 13 mmol/L (10-20); BUN (Urea Nitrogen) 5 mg/dL (8.4-25.7); Bilirubin, Total 0.6 mg/dL (0.2-1.2); Calc. Creatinine Clearance 300 mL/min (70-130); Calcium 8.2 mg/dL (7.8-10.44); Carbon Dioxide 29 mmol/L (22-29); Chloride 102 mmol/L (98-107); Estimated GFR-MDRD Greater than 90; Globulin 2.9 g/dL (2.4-3.5); Glucose 133 mg/dL (70-105); Potassium 3.6 mmol/L (3.5-5.1); Sodium 140 mmol/L (136-145)
[2019-04-27 06:34] LABS: Band 6 % (5-11); Eosinophils 3 % (0-10); Hemoglobin 8.8 g/dL (14.0-18.0); Lymphocytes 8 % (21-51); MDiff Complete? YES; Mean Corpuscular HGB CONC 32.8 g/dL (32.0-36.0); Mean Corpuscular Hemoglobin 28.6 pg (27.0-31.0); Mean Corpuscular Volume 87.4 fL (78.0-98.0); Mean Platelet Volume 6.8 fL (7.4-10.4); Monocytes 11 % (0-10); Neutrophil 72 % (42-75); Nucleated RBC 1 % (0); Platelet Count 319 thou/uL (130-400); RBC Distribution Width 13.9 % (11.5-14.5); Red Blood Cell (RBC) Count 3.08 mill/uL (4.70-6.10); White Blood Cell (WBC) Count 13.1 thou/uL (4.8-10.8)
--- NOTE | 2019-04-27 06:39 | PDOC.FM ---
- Subjective Subjective: Feels better than yesterday, less nausea. Reports 2 BMs overnight. Denies pain. - Objective MAR Reviewed: Yes Vital Signs & Weight: Vital Signs (12 hours) Temp Pulse Resp BP Pulse Ox 04/27/19 03:51 97.7 F 85 16 105/61 95 04/26/19 23:58 98.7 F 89 16 128/72 96 04/26/19 20:35 98.1 F 85 18 109/65 92 L 04/26/19 20:00 92 L Weight Admit Weight 163.339 kg Weight 163.339 kg I&O: 04/25/19 04/26/19 04/27/19 06:59 06:59 06:59 Intake Total 1515 4740 1740 Output Total 1600 2150 825 Balance -85 2590 915 Result Diagrams: 04/27/19 05:30 04/27/19 05:30 Phys Exam - Physical Examination Constitutional: NAD HEENT: moist MMs Neck: supple Respiratory: no wheezing, clear to auscultation bilateral Cardiovascular: RRR, no significant murmur distended Musculoskeletal: no edema Neurological: moves all 4 limbs Psychiatric: normal affect, A&O x 3 Skin: no rash Dx/Plan - Plan Plan: POD #6 sigmoid colectom for Sigmoid Volvulus - Endoscopically reduced volvulus and decompressed colon by GI on 04/20 - Surgery consulted, sigmoid colectomy 04/21 - Ice chips only - NG tube in place due to postop ileus, recorded outpt 1200 Left Rectus hematoma - likely contributing to ileus - Surgery managing Anemia - Likely 2/2 Hematoma - Start iron supplementation once tolerating PO Paraplegia - neurogenic bladder - Continue suprapubic catheter care DM - Cont home Metformin - Lantus 20U daily - SSI HTN - Continue home meds Suspected ANDRAE - Recommend outpt workup Addendum - Attending - Attending Attestation Date/Time: 04/27/19 1058 I personally evaluated the patient and discussed the management with Dr. Last. I agree with the History, Examination, Assessment and Plan documented above with any addition or exceptions noted below. The patient states he feels a little better. NG tube still in place. CT shows left rectus hematoma. Management per surgery.
[2019-04-27] MEDS: Citalopram 20 MG TAB PO SCH (09:19)
[2019-04-27] MEDS: Insulin Glargine 20 UNITS in Pre-Filled Syringe 1 EACH SC SCH (09:45)
[2019-04-27] MEDS: Ondansetron PF 4 MG/2 ML Vial IVP PRN (18:49)
--- NOTE | 2019-04-27 19:44 | PRG ---
DATE OF SERVICE: 04/27/2019 SUBJECTIVE: Mr. Lock is postoperative day #6 from laparoscopic assisted sigmoid colectomy for sigmoid volvulus. He continues to have evidence of an ileus. He did have a rectus sheath hematoma at his operative site in the left lower quadrant. His hemoglobin had dropped down to 8.4 yesterday, but it has bounced back to 8.8 today. He has a leukocytosis that peaked at 14 yesterday and is dropped to 13.1 today. The patient has no complaints. He is anxious in eating, but he is still not putting out significant material from his rectum. OBJECTIVE: VITAL SIGNS: On examination, he is afebrile. Pulse 88, blood pressure 140/83. LUNGS: Clear to auscultation. ABDOMEN: Has some scattered bowel sounds. It is still protuberant, distended. Rectal exam was not performed today. LABORATORY DATA: As mentioned, his hemoglobin is 8.8. His electrolytes are unremarkable. ASSESSMENT AND PLAN: He is stable after sigmoid colectomy. We are waiting for his bowel function to return in a normal fashion so that I can feed him. I suspect most of this is related to nerve damage associated with his paraplegia. I will start him on Reglan today and see if this helps with resolution of his ileus. Job ID: [id number]
[2019-04-27] MEDS: Metoclopramide HCl 10 MG/2 ML VIAL IVP SCH (23:54)
[2019-04-28] MEDS: Metoclopramide HCl 10 MG/2 ML VIAL IVP SCH ×4 (05:50→23:29)
--- NOTE | 2019-04-28 06:02 | PDOC.FM ---
- Subjective Subjective: No overnight events. Denies pain. He would like a regular diet, continues to have high output form NG tube with ice chips. He reports 2 BMs overnight. - Objective MAR Reviewed: Yes Vital Signs & Weight: Vital Signs (12 hours) Temp Pulse Resp BP Pulse Ox 04/27/19 23:56 97.6 F 96 16 122/66 92 L 04/27/19 20:07 98.9 F 89 18 133/75 93 L 04/27/19 20:00 93 L Weight Admit Weight 163.339 kg Weight 163.339 kg I&O: 04/26/19 04/27/19 04/28/19 06:59 06:59 06:59 Intake Total 4740 3580 2100 Output Total 2150 2075 1200 Balance 2590 1505 900 Result Diagrams: 04/28/19 06:05 04/27/19 05:30 Phys Exam - Physical Examination Constitutional: NAD HEENT: moist MMs Neck: supple Respiratory: no wheezing, clear to auscultation bilateral Cardiovascular: RRR, no significant murmur Gastrointestinal: non-tender Distended, tympanic Musculoskeletal: no edema Neurological: moves all 4 limbs Psychiatric: normal affect, A&O x 3 Skin: no rash Dx/Plan - Plan Plan: POD #7 sigmoid colectom for Sigmoid Volvulus - Endoscopically reduced volvulus and decompressed colon by GI on 04/20 - Surgery consulted, sigmoid colectomy 04/21 - Ice chips only - NG tube in place due to postop ileus, started on Reglan yesterday Left Rectus hematoma - likely contributing to ileus - Surgery managing Anemia - Likely 2/2 Hematoma - Start iron supplementation once tolerating PO Paraplegia - neurogenic bladder - Continue suprapubic catheter care DM - Cont home Metformin - Lantus 20U daily - SSI HTN - Continue home meds Suspected ANDRAE - Recommend outpt workup Addendum - Attending - Attending Attestation Date/Time: 04/28/19 0900 I personally evaluated the patient and discussed the management with Dr. Last. I agree with the History, Examination, Assessment and Plan documented above with any addition or exceptions noted below. The patient is resting comfortably but abdomen is still distended. NG putting out dark material. Appreciate surgery recs. Will discuss starting tpn with surgery if ileus doesn't resolve soon.
[2019-04-28 07:19] LABS: Hemoglobin 8.5 g/dL (14.0-18.0); Mean Corpuscular HGB CONC 32.1 g/dL (32.0-36.0); Mean Corpuscular Hemoglobin 28.4 pg (27.0-31.0); Mean Corpuscular Volume 88.6 fL (78.0-98.0); Mean Platelet Volume 6.7 fL (7.4-10.4); Platelet Count 352 thou/uL (130-400); RBC Distribution Width 14.2 % (11.5-14.5); Red Blood Cell (RBC) Count 2.99 mill/uL (4.70-6.10); White Blood Cell (WBC) Count 14.5 thou/uL (4.8-10.8)
[2019-04-28 07:28] LABS: Band 1 % (5-11); Lymphocytes 12 % (21-51); MDiff Complete? YES; Monocytes 8 % (0-10); Myelocyte 1 % (0-0); Neutrophil 78 % (42-75); Platelet Morphology Comment Appears Adequate; Polychromasia MODERATE = 3-4 cells (100X) (0-2/hpf)
[2019-04-28] MEDS: Citalopram 20 MG TAB PO SCH (08:50)
[2019-04-28] MEDS: Potassium Chloride 20 MEQ in Lactated Ringer's 1,000 ML IV SCH ×3 (08:50→23:28)
[2019-04-28] MEDS: Insulin Glargine 20 UNITS in Pre-Filled Syringe 1 EACH SC SCH (08:59)
[2019-04-28] MEDS ORDERED: Sodium Chloride 0.9% (PF) 10 ML VIAL FS PRN (10:26)
--- NOTE | 2019-04-28 10:41 | PRG ---
DATE OF SERVICE: 04/28/2019 SUBJECTIVE: Mr. Lock is resting comfortably in his bed on the surgical floor. He is postoperative day #7 from laparoscopic-assisted sigmoid colectomy for sigmoid volvulus. He still has a very distended abdomen. He denies any pain. Nasogastric tube is in place and has bloody appearing fluid within it. It turns out he was not on a proton pump inhibitor, this was started today. He tells me he has had a bowel movement and passing gas, but again, his abdomen is very distended. OBJECTIVE: VITAL SIGNS: On examination, he is afebrile. Pulse is 91 and blood pressure 132/75. LUNGS: Clear to auscultation. ABDOMEN: Distended with hypoactive and tympanitic bowel sounds. Incision appears to be healing appropriately. LABORATORY DATA: His hemoglobin is stable at 8.5, white blood cell count is elevated at 14.5, platelet count is normal at 352. He has evidence of a left shift. Chemistry profile was not obtained today. His blood sugars are more or less stable at about 125. ASSESSMENT: He has persistent ileus and colonic distention. I have started him on Reglan yesterday and have started Protonix today. I will reconsult Gastroenterology for a decompressive colonoscopy as his colon appears to be severely distended. I am not certain if this will help his course to resolve sooner or not, but with this degree of distention, I think the decompression would be appropriate. He will continue on IV fluids and ice chips until ileus resolves. If it persists much longer, I will have to consider TPN for nutrition. Job ID: [id number]
[2019-04-28] MEDS ORDERED: Fentanyl 100 MCG/2 ML VIAL ONE (11:38)
[2019-04-28] MEDS ORDERED: Midazolam HCl 2 mg/2 ml Vial ONE (11:47)
[2019-04-28] MEDS ORDERED: Ketamine 50 MG/ML (10ML VIAL) ONE (11:49)
--- NOTE | 2019-04-28 12:01 | RAD ---
SUPINE ABDOMEN: HISTORY: Ileus. COMPARISON: CT from 04/26/2019. FINDINGS: NG tube is in place with the tip just beyond the EG junction. Diffuse gaseous distention of the colon. Scattered small bowel gas is again seen. The bowel gas patte rn does not appear significantly changed when compared to topogram of CT of 04/26/2019. POS: [facility]
--- NOTE | 2019-04-28 12:09 | PRG ---
DATE OF SERVICE: 04/28/2019 SUBJECTIVE: Mr. Lock underwent left colon resection for sigmoid volvulus. The surgery was on 04/21/2019. He has had abdominal distention and colonic ileus following the surgery and has been unable to advance his diet. He has had an NG tube in place to suction. Imaging shows colonic distention. He has no vomiting. Minimal nausea. He has had rectal exam by Dr. Romero yesterday that just resulted in air and fluid output. OBJECTIVE: VITAL SIGNS: Temperature 98.7, pulse 91, blood pressure 132/75. GENERAL: He is in no acute distress. HEENT: He has an NG tube in place. This is stained with some dark material or red, however, I flushed this with water with a 60 mL syringe and aspirated the water back, and this all comes out still looking perfectly clear. The staining in the tubing did not change. There are no signs of upper GI bleeding at this point. He has no significant residual in his stomach. He has had his NG tube to suction as well with minimal fluid output. LUNGS: Clear to auscultation bilaterally. HEART: Regular rate and rhythm. ABDOMEN: Distended. Bowel sounds are present, but hypoactive. EXTREMITIES: Trace lower extremity edema. IMPRESSION: 1. Colonic ileus, status post left colon resection for sigmoid volvulus. 2. Obesity and paraplegia. RECOMMENDATIONS: We will plan colonoscopy with colonic decompression today. Job ID: [id number]
[2019-04-28] MEDS: Pantoprazole 40 MG VIAL IVP SCH ×2 (12:47→23:30)
[2019-04-28] MEDS: Ketorolac Tromethamine 30 MG/ML VIAL IVP PRN (17:26)
[2019-04-28] MEDS ORDERED: Pantoprazole 40 MG VIAL IVP SCH (21:00)
[2019-04-29] MEDS: Potassium Chloride 20 MEQ in Lactated Ringer's 1,000 ML IV SCH ×2 (05:08→15:00)
[2019-04-29] MEDS: Metoclopramide HCl 10 MG/2 ML VIAL IVP SCH ×4 (05:08→23:24)
[2019-04-29] MEDS ORDERED: Lactated Ringer's 500 ML IV SCH (05:45)
[2019-04-29 06:41] LABS: Hemoglobin 8.7 g/dL (14.0-18.0); Mean Corpuscular HGB CONC 31.8 g/dL (32.0-36.0); Mean Corpuscular Hemoglobin 28.5 pg (27.0-31.0); Mean Corpuscular Volume 89.4 fL (78.0-98.0); Mean Platelet Volume 6.5 fL (7.4-10.4); Platelet Count 361 thou/uL (130-400); RBC Distribution Width 14.8 % (11.5-14.5); Red Blood Cell (RBC) Count 3.06 mill/uL (4.70-6.10); White Blood Cell (WBC) Count 14.5 thou/uL (4.8-10.8)
[2019-04-29 06:57] LABS: Anion Gap 14 mmol/L (10-20); BUN (Urea Nitrogen) 9 mg/dL (8.4-25.7); Calc. Creatinine Clearance 287 mL/min (70-130); Calcium 8.3 mg/dL (7.8-10.44); Carbon Dioxide 30 mmol/L (22-29); Chloride 102 mmol/L (98-107); Estimated GFR-MDRD Greater than 90; Glucose 110 mg/dL (70-105); Potassium 3.3 mmol/L (3.5-5.1); Sodium 143 mmol/L (136-145)
--- NOTE | 2019-04-29 06:57 | PDOC.FM ---
- Subjective Subjective: Colonic decompression yesterday. Reports abdominal pain this morning, drank 3 cups of water and discomfort started after this. Also endorses nausea. - Objective MAR Reviewed: Yes Vital Signs & Weight: Vital Signs (12 hours) Temp Pulse Resp BP Pulse Ox 04/29/19 03:53 98.7 F 77 16 140/80 94 L 04/29/19 00:13 98.9 F 86 20 117/63 94 L 04/28/19 20:45 94 L 04/28/19 20:29 99.1 F 75 102/62 94 L Weight Admit Weight 163.339 kg Weight 163.339 kg I&O: 04/27/19 04/28/19 04/29/19 06:59 06:59 06:59 Intake Total 3580 3150 1740 Output Total 2075 2475 250 Balance 9092 892 5972 Result Diagrams: 04/30/19 08:04 04/30/19 08:05 Phys Exam - Physical Examination Constitutional: NAD HEENT: moist MMs Neck: supple Respiratory: no wheezing, clear to auscultation bilateral Cardiovascular: RRR, no significant murmur distended. Tympanic Musculoskeletal: no edema paraplegia Psychiatric: normal affect, A&O x 3 Deviation from normal: bilateral LE redness, crusting Dx/Plan - Plan Plan: POD #7 sigmoid colectom for Sigmoid Volvulus - Endoscopically reduced volvulus and decompressed colon by GI on 04/20 - Surgery consulted, sigmoid colectomy 04/21 - Ice chips only, consulted Counter Attendant and pharmacy to initiate TPN - NG tube in place due to postop ileus, started on Reglan yesterday - Colonic decompression 04/28 Left Rectus hematoma Anemia - Likely 2/2 Hematoma - Start iron supplementation once tolerating PO Paraplegia - neurogenic bladder - Continue suprapubic catheter care DM - Cont home Metformin - Lantus 20U daily - SSI HTN - Continue home meds Suspected ANDRAE - Recommend outpt workup Addendum - Attending - Attending Attestation Date/Time: 04/29/19 1036 I personally evaluated the patient and discussed the management with Dr. Last. I agree with the History, Examination, Assessment and Plan documented above with any addition or exceptions noted below. The patient states he is feeling "ok." NG tube in place. Abdomen is still distended. Mgmt per surgery. Starting tpn for nutrition.
[2019-04-29] MEDS ORDERED: Potassium Chloride 20 MEQ in Premix Bag 1 BAG IVPB SCH (08:00)
[2019-04-29 08:07] LABS: Band 4 % (5-11); Eosinophils 1 % (0-10); Hypochromia SLIGHT = 6-15 cells (100X) (0-5/hpf); Lymphocytes 10 % (21-51); MDiff Complete? YES; Monocytes 7 % (0-10); Neutrophil 76 % (42-75); Nucleated RBC 1 % (0); Platelet Morphology Comment Appears Adequate; Polychromasia MODERATE = 3-4 cells (100X) (0-2/hpf); Reactive Lymphocytes 2 % (0-10)
[2019-04-29] MEDS: Citalopram 20 MG TAB PO SCH (09:46)
[2019-04-29] MEDS: Insulin Glargine 20 UNITS in Pre-Filled Syringe 1 EACH SC SCH (09:48)
[2019-04-29 10:39] LABS: INR-International Normal Ratio 1.1; PTT 34.8 SEC (22.9-36.1); Prothrombin Time 13.9 SEC (12.0-14.7)
[2019-04-29 11:32] LABS: ALT (SGPT) 19 U/L (8-55); AST (SGOT) 42 U/L (5-34); Albumin 3.2 g/dL (3.5-5.0); Alkaline Phosphatase 109 U/L (40-110); Anion Gap 17 mmol/L (10-20); BUN (Urea Nitrogen) 9 mg/dL (8.4-25.7); Bilirubin, Total 0.9 mg/dL (0.2-1.2); Calc. Creatinine Clearance 279 mL/min (70-130); Calcium 8.5 mg/dL (7.8-10.44); Carbon Dioxide 28 mmol/L (22-29); Cardiac Risk 8.4 (Less than 4.5); Chloride 103 mmol/L (98-107); Cholesterol 184 mg/dl (< 200 Desired); Estimated GFR-MDRD Greater than 90; Globulin 2.9 g/dL (2.4-3.5); Glucose 110 mg/dL (70-105); HDL Cholesterol 22 mg/dL (>60 Neg Risk); LDL Cholesterol, Calculated 129 mg/dL; Phosphorus 4.2 mg/dL (2.3-4.7); Potassium 3.6 mmol/L (3.5-5.1); Protein, Total 6.1 g/dL (6.0-8.3); Sodium 144 mmol/L (136-145); Triglycerides 166 mg/dL (Less than 150)
--- NOTE | 2019-04-29 12:19 | OP ---
DATE OF PROCEDURE: 04/28/2019 PROCEDURES PERFORMED: Colonoscopy with colonic decompression. DESCRIPTION OF PROCEDURE: Informed consent was obtained. The patient was sedated with total intravenous anesthesia. Really, he was given very light sedation with a little bit of Versed. The colonoscope was advanced to the transverse colon. This was done without difficulty. The colon really was not distended. There was some fluid in the colon, which was suctioned and sent for C diff testing. The scope passed through the anastomosis without any problems. There was no stricture in this area. There was mild ulceration around the staple line, but this was shallow. No significant abnormalities were seen around the anastomosis. Air and fluid were suctioned from the colon. Again, the colon was not significantly distended at the time of the exam. There was no mucosal inflammation. Overall, the mucosa appeared normal. On advancement of the scope, water infusion was used. Additional air was not used to insufflate the colon. The patient did pass a significant amount of air just before the colonoscopy. IMPRESSION: 1. Colonoscope was advanced to the distal transverse colon. The colon was not significantly distended. Air and fluid were suctioned from the colon. No air insufflation was used for the procedure. The colonic mucosa was normal overall. There were no inflammatory changes. 2. The staple line appears intact. There was mild ulceration at the staple line, but this was shallow. There was no stricture there. 3. Fluid aspirate sent for Clostridium difficile testing. RECOMMENDATIONS: Follow clinically with this abdominal distention and evaluate for stool output and bowel sounds. We will attempt clear liquids as he tolerates per General Surgery. Job ID: [id number]
--- NOTE | 2019-04-29 12:27 | RAD ---
SUPINE ABDOMEN: INDICATION: Ileus. COMPARISON: Abdominal film 04/28/2019. FINDINGS: NG tube passes through the EG junction with tip in the upper gastric fundus. Gaseous distention of t he colon is again seen without significant interval change. Small bowel gas pattern appears unchange d. There is a focal area of mild density suggesting prominent area of stool overlying the lower abdo men which overlies the sacrum and upper lumbar spine. This may represent stool in the sigmoid region . This is unchanged from yesterday. POS: [facility]
[2019-04-29] MEDS: Pantoprazole 40 MG VIAL IVP SCH ×2 (12:30→23:23)
--- NOTE | 2019-04-29 12:47 | PRG ---
DATE OF SERVICE: 04/29/2019 SUBJECTIVE: Mr. Lock tried some water this morning, but that caused mild increase in abdominal pain and some nausea. He has had no actual vomiting. He reports that he had 3 bowel movements this morning and another one late this morning. OBJECTIVE: VITAL SIGNS: Temperature is 99.3, pulse 90, blood pressure 134/77. GENERAL: He is in no acute distress. Awake and alert. ABDOMEN: Distended. Bowel sounds are present. EXTREMITIES: Have 2+ pitting lower extremity edema. His NG tube still in place. He has pinkish orange output from his Rowan catheter with debris. LABORATORY DATA: White blood cell count 14.5, hemoglobin 8.7, platelets 361. Creatinine 0.7, bilirubin 0.9, AST 42, ALT 19, alkaline phosphatase 109. IMPRESSION: Colonic ileus with significant abdominal distention and colon dilation noted by imaging; however, colonoscopy with decompression yesterday, really did not show significant distention or air in the colon. There are certainly no inflammatory changes in his staple line appeared intact. Fluid was sent for C difficile and was confirmed to be negative. He is now passing bowel movements despite the abdominal distention. RECOMMENDATIONS: 1. Continue with metoclopramide. 2. We can again try to advance to clear liquids as he tolerates. 3. TPN per General Surgery. 4. He is not a candidate for neostigmine given his obesity hypoventilation. Also, he is continuing to have actual output from his colon at this point. Job ID: [id number]
--- NOTE | 2019-04-29 16:44 | PRG ---
DATE OF SERVICE: 04/29/2019 SUBJECTIVE: Mr. Lock remains on the surgical floor. He is postoperative day #7 from laparoscopic-assisted sigmoid colectomy for sigmoid volvulus. He still has a very distended and Tight-appearing abdomen. He denies pain. Colonoscopic decompression was attempted yesterday, but there was no area of substantially distended bowel that was encountered. Nasogastric tube is in place. The only aspirate is clear liquid consistent with ice chips and water he is sipping. OBJECTIVE: VITAL SIGNS: He is afebrile, pulse is 77 and 90, blood pressures within normal limits. LUNGS: Clear to auscultation. ABDOMEN: Appears protuberant and even distended, but he has normoactive bowel sounds currently. I am told that he has had 3 bowel movements today and then passing gas. EXTREMITIES: Unremarkable. LABORATORY DATA: White blood cell count is stable at 14.5, platelet count is normal at 361, hemoglobin is stable at 8.7. His chemistry profile reveals normal electrolytes. His albumin is depressed at 3.2. Magnesium and phosphorus are both normal. ASSESSMENT: Although he appears to still be very distended, since he has normal bowel sounds and is having bowel movements, I am going to remove his nasogastric tube and initiate clear liquids. TPN has already been ordered by the [facility]. He will have to have a PICC line placed for TPN to be initiated. Hopefully, we will be able to advance his diet, and he will continue having appropriate bowel function. Job ID: [id number]
[2019-04-29] MEDS: Multivitamins, Adult 10 ML, Multitrace-5 5 ML in D15W-AA 5% with Lytes 2,000 ML IV SCH (16:59)
[2019-04-30] MEDS: Potassium Chloride 20 MEQ in Lactated Ringer's 1,000 ML IV SCH ×4 (00:58→21:07)
--- NOTE | 2019-04-30 05:45 | PDOC.FM ---
- Subjective Subjective: Patient doing well this mornings. States he had his NG tube removed yesterday. He was able to tolerate liquid diet for dinner yesterday. Denies abdominal pain , nausea, vomiting. Does continue to have diarrhea and incontinence of stool. Patient additionally complains of chaffing in his groin and scrotum areas. - Objective MAR Reviewed: Yes Vital Signs & Weight: Vital Signs (12 hours) Temp Pulse Resp BP Pulse Ox 04/30/19 03:37 98.9 F 93 16 130/72 95 04/29/19 23:21 99.6 F 90 16 145/76 H 95 04/29/19 20:50 93 L 04/29/19 19:24 98.3 F 94 16 124/68 93 L Weight Admit Weight 163.339 kg Weight 163.339 kg I&O: 04/28/19 04/29/19 04/30/19 06:59 06:59 06:59 Intake Total 3150 1740 Output Total 2475 250 Balance 675 1490 Result Diagrams: 04/30/19 08:04 04/30/19 08:05 Phys Exam - Physical Examination Constitutional: NAD obese HEENT: moist MMs, sclera anicteric Neck: no JVD, supple, full ROM Respiratory: no wheezing, no rhonchi, clear to auscultation bilateral Cardiovascular: RRR, no significant murmur Gastrointestinal: soft, non-tender, positive bowel sounds Musculoskeletal: no edema, pulses present Neurological: normal sensation Psychiatric: normal affect, A&O x 3 Deviation from normal: erythematous RLE with skin breakdown Dx/Plan (1) Volvulus of sigmoid colon Status: Acute (2) Hypertension Code(s): I10 - ESSENTIAL (PRIMARY) HYPERTENSION Status: Chronic Qualifiers: Hypertension type: essential hypertension Qualified Code(s): I10 - Essential (primary) hypertension (3) Suprapubic catheter Code(s): Z93.59 - OTHER CYSTOSTOMY STATUS Status: Chronic - Plan Plan: Patient is a 54 yo male with complaint of abdominal pain who is admitted for sigmoid volvulus: #POD 8 of sigmoid colectomy for Sigmoid Volvulus - Endoscopically reduced volvulus and decompressed colon by GI on 04/20 - Surgery consulted, sigmoid colectomy 04/21 - consulted Diabetic Educator and pharmacy to initiate TPN on 11/1 - NG tube in place due to postop ileus--will be removed by surgery on 04/29 and clear liquid diet initiated - started on Reglan 04/28 - Colonic decompression 04/28 #Left Rectus hematoma #Anemia - Likely 2/2 Hematoma - Start iron supplementation once tolerating PO #Paraplegia - neurogenic bladder - Continue suprapubic catheter care #DM - Cont home Metformin - Lantus 20U daily - SSI #HTN - Continue home meds #Suspected ANDRAE - Recommend outpt workup Diet: Clear liquids VTE: SCDs Code: FULL Dispo: Stable, admitted to inpatient on surgical unit. Continue to monitor for PO intake. GI and Surgery consulted, appreciate recs. Anticipate discharge in > 48 hrs. Addendum - Attending - Attending Attestation Date/Time: 04/30/19 7446 I personally evaluated the patient and discussed the management with I agree with the History, Examination, Assessment and Plan documented above with any addition or exceptions noted below. POD # 10 Patient improved taking broth po and reports flatus and BM
[2019-04-30] MEDS: Metoclopramide HCl 10 MG/2 ML VIAL IVP SCH ×4 (06:36→23:45)
[2019-04-30] MEDS: HumaLOG 300 UNITS/3 ML VIAL SC PRN (06:36)
[2019-04-30] MEDS: Citalopram 20 MG TAB PO SCH (08:26)
[2019-04-30] MEDS: Morphine 2 MG/ML SYRINGE SLOW IVP PRN (08:27)
[2019-04-30] MEDS: Insulin Glargine 20 UNITS in Pre-Filled Syringe 1 EACH SC SCH (08:27)
[2019-04-30 08:31] LABS: #Eosinphils 0.2 thou/uL (0.0-0.7); #Lymphocytes 1.1 thou/uL (1.20-3.40); #Monocytes 1.1 thou/uL (0.11-0.59); #Neutrophils 11.1 thou/uL (1.40-6.50); %Basophils 0.2 % (0.0-1.0); %Eosinophils 1.6 % (0.0-10.0); %Lymphocytes 7.8 % (21.0-51.0); %Neutrophils 82.4 % (42.0-75.0); Hemoglobin 8.8 g/dL (14.0-18.0); Mean Corpuscular HGB CONC 32.6 g/dL (32.0-36.0); Mean Platelet Volume 6.8 fL (7.4-10.4); Platelet Count 359 thou/uL (130-400); RBC Distribution Width 14.8 % (11.5-14.5); Red Blood Cell (RBC) Count 3.04 mill/uL (4.70-6.10); White Blood Cell (WBC) Count 13.4 thou/uL (4.8-10.8)
[2019-04-30 08:50] LABS: ALT (SGPT) 19 U/L (8-55); AST (SGOT) 34 U/L (5-34); Alkaline Phosphatase 104 U/L (40-110); Anion Gap 11 mmol/L (10-20); BUN (Urea Nitrogen) 6 mg/dL (8.4-25.7); Bilirubin, Total 1.4 mg/dL (0.2-1.2); Calc. Creatinine Clearance 291 mL/min (70-130); Calcium 7.8 mg/dL (7.8-10.44); Carbon Dioxide 29 mmol/L (22-29); Chloride 103 mmol/L (98-107); Estimated GFR-MDRD Greater than 90; Globulin 2.9 g/dL (2.4-3.5); Glucose 186 mg/dL (70-105); Potassium 3.1 mmol/L (3.5-5.1); Protein, Total 5.9 g/dL (6.0-8.3); Sodium 140 mmol/L (136-145)
[2019-04-30] MEDS ORDERED: Polyethylene Glycol 3350 17 GM Packet PO SCH (09:00)
[2019-04-30] MEDS: Pantoprazole 40 MG VIAL IVP SCH (11:32)
[2019-04-30] MEDS: Potassium Chloride 20 MEQ in Premix Bag 1 BAG IVPB SCH ×2 (11:32→21:04)
[2019-04-30] MEDS ORDERED: Rocuronium Bromide 10 MG/ML (10ML VIAL) ONE (12:24)
[2019-04-30] MEDS ORDERED: Lidocaine 1% PF 5 ML VIAL ONE (12:24)
[2019-04-30] MEDS ORDERED: Dexamethasone 20 MG/5 ML VIAL ONE (12:24)
[2019-04-30] MEDS ORDERED: PROPOFOL 200 MG/20 ML VIAL ONE (12:24)
[2019-04-30] MEDS ORDERED: Succinylcholine Chloride 20 MG/ML 10 ml SYRINGE FS ONE (12:24)
[2019-04-30] MEDS ORDERED: PHENYLEPHRINE-NS 100 MCG/ML 10 ML SYRINGE ONE (12:24)
[2019-04-30] MEDS ORDERED: Ondansetron PF 4 MG/2 ML Vial ONE (12:24)
[2019-04-30] MEDS ORDERED: Metoclopramide HCl 10 MG/2 ML VIAL ONE (12:24)
--- NOTE | 2019-04-30 12:58 | PRG ---
DATE OF SERVICE: 04/30/2019 SUBJECTIVE: Mr. Lock has tolerated a clear liquid diet without nausea or vomiting. He has had a significant increase in diarrhea since starting the liquids however. He has had 10+ liquidy stools per day and he is having irritation of his perirectal skin. OBJECTIVE: VITAL SIGNS: Temperature 98.7, pulse 87, blood pressure 129/85. GENERAL: He is in no acute distress. He is alert and oriented x3. LUNGS: Clear to auscultation bilaterally. HEART: Regular rate and rhythm. ABDOMEN: Markedly distended. He has had bleeding from the surgical wound on the left lower quadrant, today oozing from that site. EXTREMITIES: 2+ pitting lower extremity edema. IMPRESSION: 1. Colonic pseudo-obstruction. Although his abdomen is markedly distended, he is tolerating liquids without nausea or vomiting. He is having multiple stools. 2. Sigmoid volvulus, status post left colon resection. 3. Anemia related to abdominal wall hematoma. His hemoglobin is stable. 4. Protein-calorie malnutrition. We have been unable to advance his diet. Following surgery, he is now on TPN. 5. Diarrhea. His Clostridium difficile was negative. RECOMMENDATIONS: 1. We will stop the polyethylene glycol. 2. If he continues to tolerate the clear liquids by mouth, we can stop the metoclopramide in light of the severe diarrhea. 3. We might be able to advance to a full liquid diet tomorrow if he still is tolerating the liquids despite the abdominal distention. I will defer this to General Surgery. Job ID: [id number]
[2019-04-30] MEDS: Multivitamins, Adult 10 ML, Multitrace-5 5 ML in D15W-AA 5% with Lytes 2,000 ML IV SCH (14:09)
[2019-04-30] MEDS ORDERED: Famotidine/PF 20 mg/2ml Vial ONE (15:52)
[2019-04-30] MEDS ORDERED: Fentanyl 100 MCG/2 ML VIAL ONE (15:52)
[2019-04-30] MEDS ORDERED: Meropenem 2 GM, Admixture Fee 1 EACH in Sodium Chloride 0.9% 100 ML IVPB SCH (16:00)
[2019-04-30] MEDS ORDERED: SUGAMMADEX SODIUM 500 MG/5 ML VIAL ONE (16:28)
[2019-04-30] MEDS ORDERED: HYDROmorphone 2 MG/ML VIAL SLOW IVP PRN (17:05)
[2019-04-30] MEDS ORDERED: Promethazine HCl 25 MG/ML VIAL IM PRN (17:05)
[2019-04-30] MEDS ORDERED: Ondansetron HCl/PF 4 MG/2 ML Vial IVP PRN (17:05)
[2019-04-30] MEDS ORDERED: Promethazine HCl 25 MG/ML VIAL SLOW IVP PRN (17:05)
[2019-04-30] MEDS ORDERED: Meperidine HCl/PF 25 MG/ML VIAL SLOW IVP PRN (17:05)
[2019-04-30] MEDS ORDERED: Sodium Chloride 0.9% 20 ML ONE (17:11)
[2019-04-30] MEDS ORDERED: Acetaminophen 1,000 MG in Premix Bag 1 BAG IVPB PRN (17:43)
[2019-04-30] MEDS ORDERED: Ketorolac Tromethamine 30 MG/ML VIAL IVP PRN (17:43)
--- NOTE | 2019-04-30 17:58 | PRG ---
DATE OF SERVICE: 04/30/2019 SUBJECTIVE: Mr. Lock today remains with abdominal distention. He is passing gas and stool. The patient's NG tube was removed 2 days ago. Suprapubic tube 575 for 24 hours. LABORATORY DATA: White count 13, hemoglobin 8. Sodium 140, potassium 3.1, chloride 103, BUN 6, creatinine 0.67. OBJECTIVE: VITAL SIGNS: Temperature 98.6 degrees, pulse 92, blood pressure 125/75. LUNGS: Clear to auscultation. CARDIAC: Regular rhythm without murmur or gallop. ABDOMEN: Soft, obese, tympanitic, distended, and he has hand-assist port in the left lower quadrant. There is bloody drainage. I opened the skin and there was visceral small bowel protruding. EXTREMITIES: Unremarkable. Ankle edema. Wound in left leg. ASSESSMENT AND PLAN: Wound dehiscence with evisceration. Emergent to the operating room for closure. We will place an NG tube and central line. Job ID: [id number]
--- NOTE | 2019-04-30 18:04 | RAD ---
PORTABLE CHEST: 04/30/19 HISTORY: NG tube placement. COMPARISON: 09/19/18 exam. The heart size is enlarged. Left subclavian line is seen. Catheter tip overlies the confluence of the brachiocephalic vein and superior vena cava. NG tube is difficult to visualize but appears to be wit hin the fundus region of the stomach. IMPRESSION: NG tube in the fundus region of the stomach. POS: ROSELIA
[2019-04-30] MEDS: Enoxaparin Sodium 40 MG/0.4 ML SYRINGE SC SCH (21:02)
[2019-05-01] MEDS: Morphine 2 MG/ML SYRINGE SLOW IVP PRN ×2 (00:45→11:10)
[2019-05-01] MEDS: Metoclopramide HCl 10 MG/2 ML VIAL IVP SCH ×4 (05:19→23:47)
[2019-05-01] MEDS: Potassium Chloride 20 MEQ in Lactated Ringer's 1,000 ML IV SCH ×4 (05:19→22:17)
--- NOTE | 2019-05-01 06:26 | PDOC.FM ---
- Subjective Subjective: Patient had wound dehiscence with evisceration occur two times yesterday afternoon. Patient was taken back to OR emergently both times by Dr. Carrasco. He also had his NG tube replaced yesterday as well as a central line placed. Patient continues to complain of diarrhea with >10 loose BMs/day. Nursing staff placed a rectal tube yesterday. This morning patient denies any complaints, just says that he feels tired. Denies abdominal pain, nausea/vomiting, chest pain. - Objective Vital Signs & Weight: Vital Signs (12 hours) Temp Pulse Resp BP Pulse Ox 05/01/19 04:08 98.0 F 91 16 151/86 H 95 05/01/19 00:07 97.8 F 81 16 139/87 99 04/30/19 20:26 98.3 F 82 16 144/91 H 92 L Weight Admit Weight 163.339 kg Weight 163.339 kg I&O: 04/29/19 04/30/19 05/01/19 06:59 06:59 05:59 Intake Total 1740 2090 1500 Output Total 250 575 400 Balance 1490 1515 1100 Result Diagrams: 05/01/19 05:30 05/01/19 05:30 Phys Exam - Physical Examination Constitutional: NAD obese HEENT: moist MMs, sclera anicteric Neck: supple, full ROM Respiratory: no wheezing, no rhonchi, clear to auscultation bilateral Cardiovascular: RRR, no significant murmur Gastrointestinal: soft, positive bowel sounds Musculoskeletal: no edema, pulses present Neurological: normal sensation paraplegic Psychiatric: normal affect, A&O x 3 Skin: no rash, normal turgor Deviation from normal: wound vac in place on LLQ abdomen, surrounding area clean and dry Dx/Plan (1) Volvulus of sigmoid colon Status: Acute (2) Hypertension Code(s): I10 - ESSENTIAL (PRIMARY) HYPERTENSION Status: Chronic Qualifiers: Hypertension type: essential hypertension Qualified Code(s): I10 - Essential (primary) hypertension (3) Suprapubic catheter Code(s): Z93.59 - OTHER CYSTOSTOMY STATUS Status: Chronic - Plan Plan: Patient is a 54 yo male with complaint of abdominal pain who is admitted for sigmoid volvulus: #POD 9 of sigmoid colectomy for Sigmoid Volvulus - Endoscopically reduced volvulus and decompressed colon by GI on 04/20 - Surgery consulted, sigmoid colectomy 04/21 - consulted [employer] and pharmacy to initiate TPN on 04/29 - NG tube in place due to postop ileus--will be removed by surgery on 04/29 and clear liquid diet initiated - started on Reglan 04/28 - Colonic decompression 04/28 - Wound dehiscence at 1430, emergent to OR for closure with Dr. Carrasco, and again at 1600 with repeat OR closure on 05/01 - 04/30: Dr. Carrasco replaced NG tube and placed central line. - 04/30: Dr. Keys recommends that if patient continues to tolerate PO intake then can d/c metoclopramide, will stop Miralax - Rectal tube placed by nursing staff for continued diarrhea #Left Rectus hematoma #Anemia - Likely 2/2 Hematoma - Start iron supplementation once tolerating PO #Paraplegia - neurogenic bladder - Continue suprapubic catheter care #DM - Cont home Metformin - Lantus 20U daily - SSI #HTN - Continue home meds #Suspected ANDRAE - Recommend outpt workup Diet: Clear liquids VTE: SCDs Code: FULL Dispo: Guarded, admitted to inpatient on surgical unit. Continue to monitor for PO intake. GI and Surgery consulted, appreciate recs. Anticipate discharge in > 48 hrs. Addendum - Attending - Attending Attestation Date/Time: 05/01/19 2040 I personally evaluated the patient and discussed the management with Dr. Glez I agree with the History, Examination, Assessment and Plan documented above with any addition or exceptions noted below. To start TPN patient remains in good spirits without any complaints this AM advance per Surgery and GI recommendations.
[2019-05-01 06:55] LABS: #Lymphocytes 0.9 thou/uL (1.20-3.40); #Monocytes 0.9 thou/uL (0.11-0.59); #Neutrophils 12.1 thou/uL (1.40-6.50); %Basophils 0.1 % (0.0-1.0); %Eosinophils 0.2 % (0.0-10.0); %Lymphocytes 6.3 % (21.0-51.0); %Monocytes 6.2 % (0.0-10.0); %Neutrophils 87.1 % (42.0-75.0); Hemoglobin 8.7 g/dL (14.0-18.0); Mean Corpuscular HGB CONC 31.4 g/dL (32.0-36.0); Mean Corpuscular Hemoglobin 28.4 pg (27.0-31.0); Mean Corpuscular Volume 90.6 fL (78.0-98.0); Platelet Count 366 thou/uL (130-400); RBC Distribution Width 14.6 % (11.5-14.5); Red Blood Cell (RBC) Count 3.04 mill/uL (4.70-6.10); White Blood Cell (WBC) Count 13.9 thou/uL (4.8-10.8)
[2019-05-01 07:16] LABS: ALT (SGPT) 16 U/L (8-55); AST (SGOT) 26 U/L (5-34); Albumin 2.9 g/dL (3.5-5.0); Alkaline Phosphatase 97 U/L (40-110); Anion Gap 12 mmol/L (10-20); BUN (Urea Nitrogen) 4 mg/dL (8.4-25.7); Bilirubin, Total 0.8 mg/dL (0.2-1.2); Calc. Creatinine Clearance 305 mL/min (70-130); Calcium 7.6 mg/dL (7.8-10.44); Carbon Dioxide 30 mmol/L (22-29); Chloride 103 mmol/L (98-107); Estimated GFR-MDRD Greater than 90; Globulin 2.7 g/dL (2.4-3.5); Glucose 171 mg/dL (70-105); Magnesium 1.9 mg/dL (1.6-2.6); Potassium 3.5 mmol/L (3.5-5.1); Protein, Total 5.6 g/dL (6.0-8.3); Sodium 141 mmol/L (136-145)
[2019-05-01 07:21] LABS: Phosphorus 3.3 mg/dL (2.3-4.7)
[2019-05-01] MEDS: Pantoprazole 40 MG VIAL IVP SCH (08:58)
[2019-05-01] MEDS: Citalopram 20 MG TAB PER TUBE SCH (08:58)
[2019-05-01] MEDS: Potassium Chloride 20 MEQ in Premix Bag 1 BAG IVPB SCH (09:00)
[2019-05-01] MEDS: Insulin Glargine 20 UNITS in Pre-Filled Syringe 1 EACH SC SCH (09:17)
[2019-05-01] MEDS: Multivitamins, Adult 10 ML, Multitrace-5 5 ML in D15W-AA 5% with Lytes 2,000 ML IV SCH (13:02)
--- NOTE | 2019-05-01 14:09 | PRG ---
DATE OF SERVICE: 05/01/2019 SUBJECTIVE: Raúl Lock is doing well today. He is one day status post closure of wound dehiscence with evisceration. Wound VAC is in place. NG tube was left postoperatively. OBJECTIVE: VITAL SIGNS: Temperature 98 degrees, pulse 82, blood pressure 144/75. Gastric drainage 150 mL since postoperative, Rowan 650 mL. LUNGS: Clear to auscultation. CARDIAC: Regular rate and rhythm. No murmur or gallop. ABDOMEN: Distended, tympanitic. Rectal tube placed due to persistent liquid stools excoriating his buttocks area. LABORATORY DATA: Sodium 141, potassium 3.5, BUN and creatinine 4 and 0.64, phosphorus 3.3, normal magnesium of 1.9, glucose is 173 to 150. Hemoglobin 8.7, which is stable. White count 13.9. ASSESSMENT AND PLAN: Ileus. Continue NG tube to suction for now. I have initiated TPN for his malnutrition. We will continue medical care. Await ileus resolution. Wound VAC for left lower quadrant wound. Job ID: [id number]
--- NOTE | 2019-05-01 15:13 | PRG ---
DATE OF SERVICE: 05/01/2019 SUBJECTIVE: Mr. Lock has minimal abdominal pain. He continues to have significant abdominal distension. No vomiting. He has NG tube in place. OBJECTIVE: VITAL SIGNS: Temperature 98.0, pulse 82, and blood pressure 144/75. GENERAL: He is in no acute distress. He is awake, alert, and oriented x3. LUNGS: Clear to auscultation bilaterally. HEART: Regular rate and rhythm without murmur. ABDOMEN: Firm and distended. EXTREMITIES: 2+ pitting lower extremity edema. IMPRESSION: 1. He had wound dehiscence yesterday and underwent surgery by Dr. Carrasco. He has wound VAC in place now. 2. Protein-calorie malnutrition. 3. Colonic ileus. Colonic decompression really did not help significantly. He states that he is passing gas and having multiple liquidy stools. He now has a rectal tube in place. 4. Sigmoid volvulus, status post left colon resection. 5. Abdominal wall hematoma. RECOMMENDATIONS: TPN. Job ID: [id number]
[2019-05-01] MEDS: Enoxaparin Sodium 40 MG/0.4 ML SYRINGE SC SCH (19:49)
[2019-05-01] MEDS: [UNRECOGNIZED DRUG - OTHER] IV SCH (22:17)
[2019-05-01] MEDS: SODIUM ACETATE IV SCH (22:17)
[2019-05-01] MEDS: SODIUM CHLORIDE IV SCH (22:17)
[2019-05-01] MEDS: FAT EMULSION IV SCH (22:17)
[2019-05-02] MEDS: Metoclopramide HCl 10 MG/2 ML VIAL IVP SCH ×4 (05:36→23:18)
[2019-05-02 05:59] LABS: #Eosinphils 0.3 thou/uL (0.0-0.7); #Lymphocytes 1.3 thou/uL (1.20-3.40); %Basophils 0.2 % (0.0-1.0); %Eosinophils 1.9 % (0.0-10.0); %Lymphocytes 9.5 % (21.0-51.0); %Monocytes 7.6 % (0.0-10.0); %Neutrophils 80.8 % (42.0-75.0); Hemoglobin 9.1 g/dL (14.0-18.0); Mean Corpuscular HGB CONC 31.4 g/dL (32.0-36.0); Mean Corpuscular Hemoglobin 28.5 pg (27.0-31.0); Mean Corpuscular Volume 90.6 fL (78.0-98.0); Mean Platelet Volume 6.7 fL (7.4-10.4); Platelet Count 397 thou/uL (130-400); RBC Distribution Width 15.1 % (11.5-14.5); Red Blood Cell (RBC) Count 3.19 mill/uL (4.70-6.10); White Blood Cell (WBC) Count 13.6 thou/uL (4.8-10.8)
[2019-05-02 06:15] LABS: ALT (SGPT) 19 U/L (8-55); AST (SGOT) 24 U/L (5-34); Alkaline Phosphatase 97 U/L (40-110); Anion Gap 8 mmol/L (10-20); BUN (Urea Nitrogen) 5 mg/dL (8.4-25.7); Bilirubin, Total 0.8 mg/dL (0.2-1.2); Calc. Creatinine Clearance 305 mL/min (70-130); Carbon Dioxide 33 mmol/L (22-29); Chloride 103 mmol/L (98-107); Estimated GFR-MDRD Greater than 90; Globulin 2.8 g/dL (2.4-3.5); Glucose 202 mg/dL (70-105); Potassium 3.4 mmol/L (3.5-5.1); Protein, Total 5.8 g/dL (6.0-8.3); Sodium 141 mmol/L (136-145)
--- NOTE | 2019-05-02 07:18 | PDOC.FM ---
- Subjective Subjective: Mr. Lock was resting comfortably in his bed at the time of evaluation. He admitted to his stomach continuing to feel "tight," but denied any acute overnight events such as chest pain, shortness of breath, nausea or vomiting. - Objective Vital Signs & Weight: Vital Signs (12 hours) Temp Pulse Resp BP Pulse Ox 05/02/19 06:28 92 18 149/80 H 93 L 05/02/19 03:20 97.7 F 88 18 127/73 95 05/01/19 23:20 98.1 F 90 18 134/75 93 L 05/01/19 19:52 97.7 F 81 18 135/79 99 Weight Admit Weight 163.339 kg Weight 163.339 kg I&O: 05/01/19 05/02/19 05/03/19 06:59 06:59 06:59 Intake Total 1500 Output Total 755 Balance 745 Result Diagrams: 05/02/19 05:47 05/02/19 05:47 Phys Exam - Physical Examination Constitutional: NAD HEENT: PERRLA, moist MMs, sclera anicteric, oral pharynx no lesions Neck: no nodes, supple, full ROM Respiratory: no wheezing, no rales, no rhonchi, clear to auscultation bilateral Cardiovascular: RRR, no significant murmur, no rub Distended, tense, w/ tinkling BS and mild TTP. Wound Vac in place Musculoskeletal: edema present Erythematous stasis dermatitis on both extremities with bandages in place Neurological: non-focal, moves all 4 limbs Lymphatic: no nodes Deviation from normal: Mild cognitive impairment likely Deviation from normal: See MSK Dx/Plan - Plan Plan: 1. Sigmoid Volvulus -Day 10 s/p Sigmoid Colectomy for Sigmoid Volvulus -Endoscopically reduced Volvulus and decompressed Colon by GI on 04/20 -Colonic Decompression on 04/28 -Dietary / Pharm: Consulted, currently following for TPN -NG Tube: Placed due to Post-Op Ileus - 155 ml drained since 05/01 -Wound Dehiscence on 05/01 required emergent surgery, repeat dehiscence later that day treated similarly - currently stable with Wound Vac in place -GI: Consulted, currently following - recommended continued TPN on 05/01 -Surg: Consulted, currently following - recommended continued TPN and NG Tube on 05/01 -Rectal tube placed by nursing staff for continued diarrhea 2. Left Rectus Hematoma -See #1 3. Anemia -Likely 2/2 Hematoma -Will start Fe supplementation once PO is initiated 4. Paraplegia, complicated by Neurogenic Bladder -Output: 350 ml since 05/01 -Continue suprapubic catheter care 5. DM -Continue home Metformin regimen -Lantus 20U daily -SSI 6. HTN -BP: 149/80 on 05/02 -Continue home medication regimen 7. Suspected ANDRAE -Consider RT Consult -Recommend close follow-up in outpatient setting Code: Full Diet: Clear Liquids Activity: Ambulate w/ Assist DVT PPx: SCDs Dispo: Guarded, currently admitted to Surgical Floor. Continue to monitor for PO intake. GI and Surgery consulted, currently following. Expected LOS > 48H.
[2019-05-02] MEDS: Insulin Glargine 20 UNITS in Pre-Filled Syringe 1 EACH SC SCH (08:28)
[2019-05-02] MEDS: Pantoprazole 40 MG VIAL IVP SCH (08:28)
[2019-05-02] MEDS: Citalopram 20 MG TAB PER TUBE SCH (08:28)
--- NOTE | 2019-05-02 09:17 | OP ---
DATE OF PROCEDURE: 04/30/2019 PREOPERATIVE DIAGNOSES: Morbid obesity, nonambulatory due to spinal cord injury, status post sigmoid volvulus, sigmoid resection, anastomosis with prolonged ileus, now with wound dehiscence and small-bowel evisceration, left lower quadrant hand assist port, malnutrition, poor IV access. POSTOPERATIVE DIAGNOSES: Morbid obesity, nonambulatory due to spinal cord injury, status post sigmoid volvulus, sigmoid resection, anastomosis with prolonged ileus, now with wound dehiscence and small-bowel evisceration, left lower quadrant hand assist port, malnutrition, poor IV access. PROCEDURE PERFORMED: Laparotomy, closure of wound dehiscence, wound VAC application of subcutaneous tissue, left subclavian vein triple-lumen catheter. ANESTHESIA: General. DESCRIPTION OF PROCEDURE: The patient was taken to the operating room, where under general anesthesia his viscera was protruding from the left lower quadrant wound and held in place by Nursing. Abdomen was prepared with Betadine and draped in routine fashion. Small bowel reduced back to the abdominal cavity. There was abundant hematoma in the subcutaneous tissues. The posterior fascia, peritoneum closed with continuous suture of #1 PDS. The abundant amount of thrombus removed from the subcutaneous tissue. Pulse irrigation used to clean up the area. The anterior fascia approximated with interrupted [id number] sutures of #1 PDS. The tissue was friable and difficult to close. Laterally, subcutaneous tissue was closed with #1 PDS interrupted sutures wound closure. Wound VAC applied to the upper wound. Triple-lumen catheter placed in left subclavian vein using Seldinger technique, removed the J-wire, securing the catheter with 3-0 silk. Sterile dressing applied. Each port aspirated blood and flushed with saline solution. Job ID: [id number]
--- NOTE | 2019-05-02 11:39 | PRG ---
DATE OF SERVICE: 05/02/2019 SUBJECTIVE: Mr. Lock remains on the surgical floor. He is resting in bed with nasogastric tube in place. He is postoperative day #2 from a repair of a fascial dehiscence with evisceration per Dr. Carrasco. He is postoperative day #11 from his laparoscopic assisted sigmoid colectomy. He has a wound VAC in place in the left lower quadrant and a nasogastric tube in place. TPN is running currently. He has no complaints. PHYSICAL EXAMINATION: VITAL SIGNS: He is afebrile. Pulse 86, blood pressure 156/82. LUNGS: Clear to auscultation. ABDOMEN: Massively obese. It is impossible to determine if it is distended or not. Some bowel sounds are present and these do not appear to be tympanitic. He has a rectal tube in and has some liquid stool per rectal tube. LABORATORY DATA: CBC shows white blood cell count of 13.6, hemoglobin is 9.1, platelet count 397. He has mild hypokalemia with potassium of 3.4. BUN and creatinine are normal. Albumin is slightly low at 3.0. ASSESSMENT AND PLAN: He is stable. He continues to have issues with appropriate healing following his sigmoid colectomy for sigmoid volvulus. His massive obesity as well as his paraplegia have made caring for him difficult. We will continue the nasogastric tube and the TPN for now. Hopefully, we will be able to remove the nasogastric tube tomorrow. Job ID: [id number]
[2019-05-02] MEDS: Potassium Chloride 20 MEQ in Lactated Ringer's 1,000 ML IV SCH ×2 (12:22→18:34)
[2019-05-02] MEDS: HumaLOG 300 UNITS/3 ML VIAL SC PRN ×3 (12:24→23:29)
--- NOTE | 2019-05-02 15:10 | PRG ---
DATE OF SERVICE: 05/02/2019 Mr. Lock had surgery several days back for a sigmoid volvulus. He has had a postop ileus. He had an NG tube placed, and we will continue to follow with the Surgery Service. Job ID: [id number]
[2019-05-02] MEDS: Enoxaparin Sodium 40 MG/0.4 ML SYRINGE SC SCH (22:10)
[2019-05-02] MEDS: SODIUM ACETATE IV SCH (22:10)
[2019-05-02] MEDS: SODIUM CHLORIDE IV SCH (22:10)
[2019-05-02] MEDS: [UNRECOGNIZED DRUG - OTHER] IV SCH (22:10)
[2019-05-02] MEDS: FAT EMULSION IV SCH (22:10)
[2019-05-03] MEDS ORDERED: Sodium Chloride 0.9% (PF) 10 ML VIAL FS PRN (00:23)
[2019-05-03] MEDS ORDERED: Pantoprazole 40 MG VIAL IVP SCH (00:30)
[2019-05-03] MEDS: Morphine 2 MG/ML SYRINGE SLOW IVP PRN ×4 (01:05→22:32)
[2019-05-03] MEDS: Potassium Chloride 20 MEQ in Lactated Ringer's 1,000 ML IV SCH ×3 (03:36→20:06)
[2019-05-03] MEDS ORDERED: Furosemide 100 MG/10 ML VIAL SLOW IVP SCH (04:00)
[2019-05-03] MEDS: Metoclopramide HCl 10 MG/2 ML VIAL IVP SCH ×3 (05:34→18:55)
--- NOTE | 2019-05-03 06:06 | PDOC.FM ---
- Subjective Subjective: Mr. Lock was resting comfortably in his hospital bed at the time of evaluation. He denied any acute overnight events, and states that his stomach feels better than yesterday, although it is still relatively tender near the surgical site. - Objective Vital Signs & Weight: Vital Signs (12 hours) Temp Pulse Resp BP Pulse Ox 05/03/19 04:46 95 05/03/19 04:45 95 05/03/19 03:57 97.8 F 87 18 167/74 H 97 05/02/19 23:21 98.3 F 85 18 142/87 H 95 05/02/19 20:33 98.1 F 89 18 147/71 H 96 Weight Admit Weight 163.339 kg Weight 163.339 kg I&O: 05/01/19 05/02/19 05/03/19 06:59 06:59 06:59 Intake Total 1500 1500 Output Total 755 700 Balance 745 800 Result Diagrams: 05/03/19 05:45 05/03/19 05:45 Phys Exam - Physical Examination Constitutional: NAD HEENT: PERRLA, moist MMs, sclera anicteric, oral pharynx no lesions Neck: supple, full ROM Respiratory: no wheezing, no rales, no rhonchi, clear to auscultation bilateral Cardiovascular: RRR, no significant murmur, no rub Gastrointestinal: soft No tinkling BS. Less rigid than 05/02. Mild TTP only at surgical site. Musculoskeletal: pulses present Neurological: non-focal, moves all 4 limbs Deviation from normal: Multiple chronic rashes on LEs at mid-[place]. Dx/Plan - Plan Plan: 1. Sigmoid Volvulus -Day 11 s/p Sigmoid Colectomy for Sigmoid Volvulus -Endoscopically reduced Volvulus and decompressed Colon by GI on 04/20 -Colonic Decompression on 04/28 -Dietary / Pharm: Consulted, currently following for TPN -NG Tube: Placed due to Post-Op Ileus - <50 ml drained since 05/02 -Wound Dehiscence on 05/01 required emergent surgery, repeat dehiscence later that day treated similarly - currently stable with Wound Vac in place -GI: Consulted, currently following - recommended continued TPN on 05/01 -Surg: Consulted, currently following - recommended continued TPN and plan for NG Tube withdrawal on 05/02 -Rectal tube placed by nursing staff for continued diarrhea - C. diff cultures negative 2. Left Rectus Hematoma -See #1 3. Anemia -Likely 2/2 Hematoma -Will start Fe supplementation once PO is initiated 4. Paraplegia, complicated by Neurogenic Bladder -Output: 550 ml since 05/02 -Continue suprapubic catheter care 5. DM -Continue home Metformin regimen -Lantus 20U daily -SSI 6. HTN -BP: 167/74 on 05/03 -Continue home medication regimen 7. Suspected ANDRAE -Consider RT Consult -Recommend close follow-up in outpatient setting Code: Full Diet: Clear Liquids Activity: Ambulate w/ Assist DVT PPx: SCDs Dispo: Guarded, currently admitted to Surgical Floor. Continue to monitor for PO intake. GI and Surgery consulted, currently following. Plan for DC of NG Tube per Surgery recommendations. Consider need for eventual progression of diet. Expected LOS > 48H. Addendum - Attending - Attending Attestation Date/Time: 05/03/19 1420 I personally evaluated the patient and discussed the management with Dr. Eddy I agree with the History, Examination, Assessment and Plan documented above with any addition or exceptions noted below - Patient denies any complaints. Minimal pain in abdomen. Chewing on a mint. Afebrile VSS A/P: 1) Sigmoid volvulus recurrent- s/p colectomy with wound dehiscence and repair - NGT removed today; plans as per surgery. Continue wound vac and wound care. Diet as per surgery. 2) DM- Will adjust insulin and monitor accuchecks. 3) HTN- continue to monitor.
[2019-05-03 06:10] LABS: #Eosinphils 0.2 thou/uL (0.0-0.7); #Lymphocytes 1.4 thou/uL (1.20-3.40); #Monocytes 1.2 thou/uL (0.11-0.59); #Neutrophils 12.6 thou/uL (1.40-6.50); %Basophils 0.3 % (0.0-1.0); %Eosinophils 1.6 % (0.0-10.0); %Lymphocytes 8.9 % (21.0-51.0); %Monocytes 7.9 % (0.0-10.0); %Neutrophils 81.3 % (42.0-75.0); Hemoglobin 9.5 g/dL (14.0-18.0); Mean Corpuscular HGB CONC 31.2 g/dL (32.0-36.0); Mean Corpuscular Hemoglobin 28.1 pg (27.0-31.0); Mean Platelet Volume 6.9 fL (7.4-10.4); Platelet Count 448 thou/uL (130-400); RBC Distribution Width 15.2 % (11.5-14.5); Red Blood Cell (RBC) Count 3.36 mill/uL (4.70-6.10); White Blood Cell (WBC) Count 15.5 thou/uL (4.8-10.8)
[2019-05-03 06:41] LABS: ALT (SGPT) 16 U/L (8-55); AST (SGOT) 20 U/L (5-34); Albumin 3.2 g/dL (3.5-5.0); Alkaline Phosphatase 99 U/L (40-110); Anion Gap 11 mmol/L (10-20); BUN (Urea Nitrogen) 6 mg/dL (8.4-25.7); Bilirubin, Total 0.9 mg/dL (0.2-1.2); Calc. Creatinine Clearance 287 mL/min (70-130); Calcium 8.2 mg/dL (7.8-10.44); Carbon Dioxide 35 mmol/L (22-29); Chloride 99 mmol/L (98-107); Estimated GFR-MDRD Greater than 90; Globulin 3.1 g/dL (2.4-3.5); Glucose 233 mg/dL (70-105); Potassium 3.1 mmol/L (3.5-5.1); Protein, Total 6.3 g/dL (6.0-8.3); Sodium 142 mmol/L (136-145)
[2019-05-03] MEDS: HumaLOG 300 UNITS/3 ML VIAL SC PRN ×3 (07:29→19:57)
[2019-05-03] MEDS: Pantoprazole 40 MG VIAL IVP SCH (11:16)
[2019-05-03] MEDS: Insulin Glargine 20 UNITS in Pre-Filled Syringe 1 EACH SC SCH (11:19)
[2019-05-03] MEDS ORDERED: Dextrose 50% Abboject 50 ML SYRINGE SLOW IVP PRN (11:54)
[2019-05-03] MEDS ORDERED: Dextrose 5% in Water 1,000 ML IV PRN (11:54)
[2019-05-03] MEDS ORDERED: Potassium Chloride 10 MEQ in Premix Bag 1 BAG IVPB SCH (12:00)
[2019-05-03] MEDS: Citalopram 20 MG TAB PER TUBE SCH (14:13)
[2019-05-03] MEDS: Enoxaparin Sodium 40 MG/0.4 ML SYRINGE SC SCH (22:32)
[2019-05-03] MEDS: [UNRECOGNIZED DRUG - OTHER] IV SCH (22:33)
[2019-05-03] MEDS: FAT EMULSION IV SCH (22:33)
[2019-05-03] MEDS: SODIUM ACETATE IV SCH (22:33)
[2019-05-03] MEDS: SODIUM CHLORIDE IV SCH (22:33)
--- NOTE | 2019-05-03 22:58 | PRG ---
DATE OF SERVICE: 05/03/2019 SUBJECTIVE: Mr. Lock is examined on the surgical floor. He is postoperative day #3 from repair of left lower quadrant fascial dehiscence. Postoperative day #12 from laparoscopic-assisted sigmoid colectomy. He has no new complaints. Nasogastric tube is in place. All nasogastric aspirate appears to be clear, probably the ice chips that he is swallowing. He has had bowel function per his rectal tube. OBJECTIVE: VITAL SIGNS: He is afebrile. Pulse is between 80 and 100. Blood pressure is slightly elevated at . LUNGS: Clear to auscultation. ABDOMEN: Actually appears less distended. Bowel sounds are present and normoactive. Left lower quadrant incision is examined with the wound care team. Although the tissue appears to be healthy, the superficial layer fascial closer sutures are palpable and seemed to be somewhat loose. I asked the wound care team not to try to pack between the sutures and instead place the suction material more superficially. Hopefully, this will lead to closure of the deeper layers. ASSESSMENT AND PLAN: He is stable after the surgery. I am concerned about his wound and hope that it does not dehisce again. He appears to have intact bowel function. I will remove the nasogastric tube and begin clear liquids and hopefully be able to advance his diet. We will continue his TPN for now. Job ID: [id number]
[2019-05-04] MEDS: HumaLOG 300 UNITS/3 ML VIAL SC PRN ×4 (00:02→17:38)
[2019-05-04] MEDS: Metoclopramide HCl 10 MG/2 ML VIAL IVP SCH ×5 (00:03→23:01)
[2019-05-04] MEDS: Potassium Chloride 20 MEQ in Lactated Ringer's 1,000 ML IV SCH ×3 (00:03→12:55)
[2019-05-04] MEDS: Morphine 2 MG/ML SYRINGE SLOW IVP PRN ×5 (02:39→22:51)
[2019-05-04 06:40] LABS: #Eosinphils 0.4 thou/uL (0.0-0.7); #Lymphocytes 1.6 thou/uL (1.20-3.40); #Monocytes 1.4 thou/uL (0.11-0.59); #Neutrophils 11.4 thou/uL (1.40-6.50); %Basophils 0.3 % (0.0-1.0); %Eosinophils 2.4 % (0.0-10.0); %Lymphocytes 10.8 % (21.0-51.0); %Monocytes 9.4 % (0.0-10.0); %Neutrophils 77.1 % (42.0-75.0); Hemoglobin 9.2 g/dL (14.0-18.0); Mean Corpuscular HGB CONC 31.4 g/dL (32.0-36.0); Mean Corpuscular Hemoglobin 28.4 pg (27.0-31.0); Mean Corpuscular Volume 90.2 fL (78.0-98.0); Mean Platelet Volume 6.6 fL (7.4-10.4); Platelet Count 391 thou/uL (130-400); RBC Distribution Width 15.4 % (11.5-14.5); Red Blood Cell (RBC) Count 3.25 mill/uL (4.70-6.10); White Blood Cell (WBC) Count 14.8 thou/uL (4.8-10.8)
--- NOTE | 2019-05-04 06:59 | PDOC.FM ---
- Subjective Subjective: Mr. Lock was completing his morning prayers at the time of evaluation. He denied any acute overnight events, specifically with regard to headache, chest pain or worsening abdominal pain. He admitted to 1 episode of shortness of breath during the evening, but stated that he felt fine with his supplemental O2 (1L via Nasal Canula) and had not had any repear episodes - this was difficult to assess fully due to mental status. - Objective Vital Signs & Weight: Vital Signs (12 hours) Temp Pulse Resp BP Pulse Ox 05/04/19 03:24 97.9 F 99 18 155/65 H 95 05/03/19 23:00 97.8 F 88 18 137/68 95 05/03/19 20:19 98.8 F 105 H 18 162/81 H 95 05/03/19 19:21 80 20 96 Weight Admit Weight 163.339 kg Weight 163.339 kg I&O: 05/02/19 05/03/19 05/04/19 06:59 06:59 06:59 Intake Total 1500 1500 3000 Output Total 159 101 0285 Balance 352 922 -4603 Result Diagrams: 05/04/19 06:30 05/04/19 06:30 Phys Exam - Physical Examination Constitutional: NAD HEENT: moist MMs, sclera anicteric, oral pharynx no lesions Neck: supple, full ROM Respiratory: no wheezing, no rales, no rhonchi, clear to auscultation bilateral Cardiovascular: RRR, no significant murmur, no rub Gastrointestinal: soft, non-tender, positive bowel sounds NBS x4, reduced ecchymoses with minimal TTP Musculoskeletal: pulses present Stable chronic changes on both LEs Neurological: non-focal Deviation from normal: Cognitive impairment Skin: no rash Dx/Plan - Plan Plan: 1. Sigmoid Volvulus -Day 12 s/p Sigmoid Colectomy for Sigmoid Volvulus -Endoscopically reduced Volvulus and decompressed Colon by GI on 04/20 -Colonic Decompression on 04/28 -Dietary / Pharm: Consulted, currently following for TPN w/ supplemental insulin -NG Tube: Removed on 05/03 -Wound Dehiscence on 05/01 required emergent surgery, repeat dehiscence later that day treated similarly - currently stable with Wound Vac in place -GI: Consulted, currently following - recommended continued TPN on 05/01 -Surg: Consulted, currently following - recommended continued TPN and eventual advancement of diet on 05/03 -Rectal tube placed by nursing staff for continued diarrhea - C. diff cultures negative 2. Left Rectus Hematoma -See #1 3. Anemia -Likely 2/2 Hematoma -Will start Fe supplementation once PO is initiated 4. Paraplegia, complicated by Neurogenic Bladder -Output: 6125 ml documented - likely entered in error -Will confirm w/ nursing staff -Continue suprapubic catheter care 5. DM -Glucose: 195 on 05/04 -Continue home Metformin regimen -Lantus 20U daily -Aggressive SSI -Consider increasing Lantus dosing 6. HTN -BP: 155/65 on 05/04 -Continue home medication regimen 7. Suspected ANDRAE -Consider RT Consult -Recommend close follow-up in outpatient setting Code: Full Diet: TPN w/ Ice Chips Activity: Bed Rest DVT PPx: SCDs Dispo: Guarded, currently admitted to Surgical Floor. Physical exam continues to improve. GI and Surgery consulted, currently following. Consider need for eventual progression of diet. Expected LOS > 48H. Addendum - Attending - Attending Attestation Date/Time: 05/04/19 4338 I personally evaluated the patient and discussed the management with Dr. Eddy I agree with the History, Examination, Assessment and Plan documented above with any addition or exceptions noted below - Patient denies complaints. Has been tolerating clear liquids without any N/V. Denies abdominal pain. Afebrile VSS. A/P: 1) Sigmoid volvulus s/p colectomy. 2) Fascial dehiscence - repaired; Wound vac in place. Continue wound care. Plans as per surgery. 3) DM- BG improved; will adjust lantus and continue SSI.
[2019-05-04 07:04] LABS: Anion Gap 9 mmol/L (10-20); BUN (Urea Nitrogen) 7 mg/dL (8.4-25.7); Calc. Creatinine Clearance 325 mL/min (70-130); Carbon Dioxide 35 mmol/L (22-29); Chloride 97 mmol/L (98-107); Estimated GFR-MDRD Greater than 90; Glucose 195 mg/dL (70-105); Potassium 3.3 mmol/L (3.5-5.1); Sodium 138 mmol/L (136-145)
[2019-05-04] MEDS ORDERED: Potassium Chloride 40 MEQ in Sodium Chloride 0.9% 250 ML 250 ML IVPB SCH ×2 (09:15→09:30)
[2019-05-04] MEDS: Citalopram 20 MG TAB PER TUBE SCH (09:59)
[2019-05-04] MEDS: Insulin Glargine 30 UNITS in Pre-Filled Syringe 1 EACH SC SCH (10:00)
[2019-05-04] MEDS: Pantoprazole 40 MG VIAL IVP SCH (10:01)
[2019-05-04] MEDS: Ondansetron PF 4 MG/2 ML Vial IVP PRN (10:02)
[2019-05-04] MEDS: Enoxaparin Sodium 40 MG/0.4 ML SYRINGE SC SCH (20:28)
[2019-05-04] MEDS ORDERED: [UNRECOGNIZED DRUG - OTHER] IV SCH (22:00)
[2019-05-04] MEDS ORDERED: FAT EMULSION IV SCH (22:00)
[2019-05-04] MEDS ORDERED: SODIUM ACETATE IV SCH (22:00)
[2019-05-04] MEDS ORDERED: SODIUM CHLORIDE IV SCH (22:00)
[2019-05-04] MEDS: SODIUM ACETATE IV SCH (23:36)
[2019-05-04] MEDS: FAT EMULSION IV SCH (23:36)
[2019-05-04] MEDS: SODIUM CHLORIDE IV SCH (23:36)
[2019-05-04] MEDS: [UNRECOGNIZED DRUG - OTHER] IV SCH (23:36)
[2019-05-05] MEDS: HumaLOG 300 UNITS/3 ML VIAL SC PRN ×5 (00:39→21:39)
[2019-05-05 04:50] LABS: #Basophils 0.1 thou/uL (0.0-0.2); #Eosinphils 0.4 thou/uL (0.0-0.7); #Lymphocytes 1.6 thou/uL (1.20-3.40); #Monocytes 1.3 thou/uL (0.11-0.59); #Neutrophils 11.5 thou/uL (1.40-6.50); %Basophils 0.3 % (0.0-1.0); %Eosinophils 2.9 % (0.0-10.0); %Lymphocytes 10.6 % (21.0-51.0); %Monocytes 8.6 % (0.0-10.0); %Neutrophils 77.6 % (42.0-75.0); Hemoglobin 8.9 g/dL (14.0-18.0); Mean Corpuscular HGB CONC 30.4 g/dL (32.0-36.0); Mean Corpuscular Hemoglobin 27.7 pg (27.0-31.0); Mean Corpuscular Volume 91.1 fL (78.0-98.0); Mean Platelet Volume 6.6 fL (7.4-10.4); Platelet Count 408 thou/uL (130-400); RBC Distribution Width 15.3 % (11.5-14.5); Red Blood Cell (RBC) Count 3.21 mill/uL (4.70-6.10); White Blood Cell (WBC) Count 14.8 thou/uL (4.8-10.8)
--- NOTE | 2019-05-05 05:41 | PDOC.FM ---
- Subjective Subjective: Mr. Lock was resting comfortably and watching TV at the time of evaluation. He denied any acute overnight events, specifically SOB, N/V or increasing abdominal pain. - Objective Vital Signs & Weight: Vital Signs (12 hours) Temp Pulse Resp BP Pulse Ox 05/05/19 03:10 98.0 F 79 18 137/75 92 L 05/05/19 00:22 96 05/04/19 23:54 88 22 H 91 L 05/04/19 23:41 98.1 F 85 18 145/73 H 94 L 05/04/19 20:39 98.8 F 05/04/19 20:30 94 L 05/04/19 18:37 88 20 143/79 H 94 L Weight Admit Weight 163.339 kg Weight 163.339 kg I&O: 05/03/19 05/04/19 05/05/19 06:59 06:59 06:59 Intake Total 1500 3000 720 Output Total 700 6475 1625 Balance 318 -0573 -246 Result Diagrams: 05/05/19 04:37 05/05/19 08:45 Phys Exam - Physical Examination Constitutional: NAD HEENT: moist MMs, sclera anicteric, oral pharynx no lesions Neck: supple, full ROM Respiratory: no wheezing, no rales, no rhonchi, clear to auscultation bilateral Cardiovascular: RRR, no significant murmur, no rub Gastrointestinal: soft, non-tender, positive bowel sounds Protuberant, resolving ecchymoses, minimal TTP Musculoskeletal: pulses present +2 pulses at Radial Arteries Neurological: non-focal, moves all 4 limbs Decreased strength/mobility in LEs Deviation from normal: Cognitive impairment Deviation from normal: Stable ulcerations on anterior LE at the mid-tibia, bilaterally Dx/Plan - Plan Plan: 1. Sigmoid Volvulus -Day 13 s/p Sigmoid Colectomy for Sigmoid Volvulus -Endoscopically reduced Volvulus and decompressed Colon by GI on 04/20 -Colonic Decompression on 04/28 -Dietary / Pharm: Consulted, currently following for TPN w/ supplemental insulin -Wound Dehiscence on 05/01 required emergent surgery, repeat dehiscence later that day treated similarly - currently stable with Wound Vac in place -GI: Consulted, currently following - recommended continued TPN on 05/01 -Surg: Consulted, currently following - recommended continued TPN and eventual advancement of diet on 05/03 -Rectal tube placed by nursing staff for continued diarrhea - C. diff cultures negative 2. Left Rectus Hematoma -See #1 3. Anemia -Likely 2/2 Hematoma -Will start Fe supplementation once PO is initiated 4. Paraplegia, complicated by Neurogenic Bladder -Output (Rowan): 1300 ml -Will confirm w/ nursing staff -Continue suprapubic catheter care 5. DM -Glucose: 266 at last check on 05/04 -Restart home Metformin regimen once PO is initiated -Lantus 30U daily -Aggressive SSI -Consider increasing Lantus dosing 6. HTN -BP: 137/75 on 05/04 -Continue home medication regimen 7. Suspected ANDRAE -Consider RT Consult -Recommend close follow-up in outpatient setting Code: Full Diet: TPN w/ Ice Chips Activity: Bed Rest DVT PPx: SCDs Dispo: Stable, currently admitted to Surgical Floor. Physical exam continues to improve. GI and Surgery consulted, currently following. Consider need for eventual progression of diet. Expected LOS > 48H. Addendum - Attending - Attending Attestation Date/Time: 05/05/19 1221 I personally evaluated the patient and discussed the management with Dr. Eddy I agree with the History, Examination, Assessment and Plan documented above with any addition or exceptions noted below - Patient without complaints. Tolerating clears advanced to full liquids today. Afebrile VSS. A/P: 1) Sigmoid volvulus s/p colectomy with wound dehiscence- continue wound care; plans as per surgery. Consider weaning TPN. 2) DM- adjust insulin and continue to monitor accuchecks.
[2019-05-05] MEDS: Metoclopramide HCl 10 MG/2 ML VIAL IVP SCH ×2 (06:19→11:08)
[2019-05-05] MEDS: Pantoprazole 40 MG VIAL IVP SCH (08:05)
[2019-05-05] MEDS: Ondansetron PF 4 MG/2 ML Vial IVP PRN ×2 (08:06→16:28)
[2019-05-05] MEDS: Morphine 2 MG/ML SYRINGE SLOW IVP PRN ×2 (08:07→11:07)
[2019-05-05] MEDS: Insulin Glargine 30 UNITS in Pre-Filled Syringe 1 EACH SC SCH (08:08)
[2019-05-05] MEDS: Potassium Chloride 20 MEQ in Lactated Ringer's 1,000 ML IV SCH ×3 (08:19→08:40)
[2019-05-05] MEDS: Citalopram 20 MG TAB PER TUBE SCH (08:24)
[2019-05-05] MEDS ORDERED: Insulin Glargine 15 UNITS in Pre-Filled Syringe 1 EACH SC SCH (08:30)
[2019-05-05 09:26] LABS: Anion Gap 8 mmol/L (10-20); BUN (Urea Nitrogen) 8 mg/dL (8.4-25.7); Calc. Creatinine Clearance 315 mL/min (70-130); Calcium 8.1 mg/dL (7.8-10.44); Carbon Dioxide 36 mmol/L (22-29); Chloride 96 mmol/L (98-107); Estimated GFR-MDRD Greater than 90; Glucose 247 mg/dL (70-105); Potassium 3.8 mmol/L (3.5-5.1); Sodium 136 mmol/L (136-145)
--- NOTE | 2019-05-05 15:23 | PRG ---
DATE OF SERVICE: 05/05/2019 SUBJECTIVE: Mr. Lock remains in his bed on the surgical floor. He has no complaints today. He is tolerating his full liquid diet uneventfully. He is still receiving TPN. He is postoperative day #5 from a pair of left lower quadrant fascial dehiscence. He is postoperative day #14 from a laparoscopic-assisted sigmoid colectomy. His urine output has been excellent, about 3000 mL yesterday. He continues to have liquid stool per the rectal tube. OBJECTIVE: VITAL SIGNS: He is afebrile. Vital signs within normal limits. LUNGS: Clear to auscultation. ABDOMEN: Obese, but soft with good bowel sounds. Wound VAC is intact over the left lower quadrant incision. Bowel sounds are normoactive. LABORATORY DATA: His basic metabolic panel shows some mild electrolyte abnormalities. His glucoses remain persistently elevated between 203 and 282. His CBC shows a stable hemoglobin of 8.9 with a white blood cell count of 14.8. ASSESSMENT AND PLAN: In summary, he is doing well. It appears his ileus just resolved. I will advance him up to a solid diabetic diet and discontinue his TPN later tonight. He now appears stable for discharge. We will initiate discharge planning for tomorrow back to his facility. He should be on a solid diet and oral medications and continued wound VAC to the left lower quadrant. Job ID: [id number]
[2019-05-05] MEDS: Enoxaparin Sodium 40 MG/0.4 ML SYRINGE SC SCH (20:49)
[2019-05-05] MEDS ORDERED: Furosemide 40 MG/4 ML VIAL SLOW IVP SCH (23:15)
[2019-05-06] MEDS: Cyclobenzaprine 10 MG TAB PO PRN ×2 (00:15→09:54)
[2019-05-06] MEDS: traMADol HCl 50 MG TAB PO PRN ×2 (03:09→09:51)
[2019-05-06 04:06] LABS: #Eosinphils 0.5 thou/uL (0.0-0.7); #Lymphocytes 1.5 thou/uL (1.20-3.40); #Monocytes 1.4 thou/uL (0.11-0.59); #Neutrophils 12.4 thou/uL (1.40-6.50); %Basophils 0.3 % (0.0-1.0); %Eosinophils 3.3 % (0.0-10.0); %Lymphocytes 9.5 % (21.0-51.0); %Monocytes 8.9 % (0.0-10.0); %Neutrophils 78.1 % (42.0-75.0); Hemoglobin 8.8 g/dL (14.0-18.0); Mean Corpuscular Hemoglobin 28.1 pg (27.0-31.0); Mean Corpuscular Volume 90.9 fL (78.0-98.0); Platelet Count 450 thou/uL (130-400); RBC Distribution Width 15.3 % (11.5-14.5); Red Blood Cell (RBC) Count 3.13 mill/uL (4.70-6.10); White Blood Cell (WBC) Count 15.8 thou/uL (4.8-10.8)
[2019-05-06 04:28] LABS: Anion Gap 10 mmol/L (10-20); BUN (Urea Nitrogen) 9 mg/dL (8.4-25.7); Calc. Creatinine Clearance 320 mL/min (70-130); Calcium 8.1 mg/dL (7.8-10.44); Carbon Dioxide 35 mmol/L (22-29); Chloride 95 mmol/L (98-107); Estimated GFR-MDRD Greater than 90; Glucose 150 mg/dL (70-105); Potassium 4.1 mmol/L (3.5-5.1); Sodium 136 mmol/L (136-145)
--- NOTE | 2019-05-06 06:07 | PDOC.FM ---
- Subjective Subjective: Mr. Lock was resting comfortably in his hospital bed at the time of evaluation. He stated that he was pleased with his recent diet advancement to solid foods and that he slept marginally well during the night. He denied any headaches, chest pain, shortness of breath, N/V or ABD pain. He stated that he was passing gas without difficulty and was confident that he was passing stool appropriately. - Objective Vital Signs & Weight: Vital Signs (12 hours) Temp Pulse Resp BP Pulse Ox 05/06/19 04:00 94 L 05/06/19 03:46 98.4 F 87 20 132/72 94 L 05/05/19 23:54 99.1 F 82 18 132/52 L 90 L 05/05/19 20:20 92 L 05/05/19 19:34 98.2 F 96 16 125/58 L 92 L Weight Admit Weight 163.339 kg Weight 163.339 kg I&O: 05/04/19 05/05/19 05/06/19 06:59 06:59 06:59 Intake Total 3000 2220 1693.5 Output Total 6475 3025 1275 Balance -3475 -805 418.5 Result Diagrams: 05/06/19 03:30 05/06/19 03:30 Phys Exam - Physical Examination Constitutional: NAD HEENT: PERRLA, moist MMs, sclera anicteric, oral pharynx no lesions Neck: supple, full ROM Respiratory: no wheezing, no rales, no rhonchi, clear to auscultation bilateral Cardiovascular: RRR, no significant murmur, no rub Gastrointestinal: soft, non-tender, positive bowel sounds Protuberant Musculoskeletal: pulses present +2 at Radial Artery Neurological: non-focal, moves all 4 limbs Reduced ROM/Strength in LEs Deviation from normal: Cognitive impairment, chronic Deviation from normal: Bilateral venous stasis ulcerations, stable Dx/Plan - Plan Plan: 1. Sigmoid Volvulus -Day 15 s/p Sigmoid Colectomy for Sigmoid Volvulus -Endoscopically reduced Volvulus and decompressed Colon by GI on 04/20 -Colonic Decompression on 04/28 -Dietary / Pharm: Consulted, currently following for TPN w/ supplemental insulin - DC'd -Wound Dehiscence on 05/01 required emergent surgery, repeat dehiscence later that day treated similarly - currently stable with Wound Vac in place -GI: Consulted, currently following - recommended continued TPN on 05/01 -Surg: Consulted, currently following - recommended DC TPN and advancement of diet to Solid/Carbohydrate Conscious on 05/05 -Rectal tube placed by nursing staff for continued diarrhea - C. diff cultures negative 2. Left Rectus Hematoma -See #1 3. Anemia -Likely 2/2 Hematoma -Will start Fe supplementation once PO is initiated 4. Paraplegia, complicated by Neurogenic Bladder -Output (Rowan): 1275 ml -Continue suprapubic catheter care 5. DM -Glucose: 152 at last check on 05/06 -Restart home Metformin regimen once PO is initiated -Lantus 30U daily -Aggressive SSI 6. HTN -BP: 132/72 on 05/06 -Continue home medication regimen 7. Suspected ANDRAE -Consider RT Consult -Recommend close follow-up in outpatient setting Code: Full Diet: Solid/Carbohydrate Conscious Activity: Bed Rest DVT PPx: Lovenox 40 mg SC Dispo: Patient continues to remain stable on the Surgical Floor. Physical exam greatly improved with regard to ABD Exam. GI and Surgery consulted, currently following. Diet has been advanced per Surgery recommendations and ABD function appears to indicate a resolution of surgical ileus. Recommend DC back to [facility] with optimized medication regimen. Expected LOS < 24H. Addendum - Attending - Attending Attestation Date/Time: 05/06/19 1112 I personally evaluated the patient and discussed the management with Dr. Eddy. I agree with the History, Examination, Assessment and Plan documented above with any addition or exceptions noted below.
--- NOTE | 2019-05-06 07:24 | PDOC.GSPN ---
Surgery Progress Note: Subj - Subjective Narrative: Mr. Lock is a 54 y/o male with PMH of paraplegia, T2DM, and morbid obesity who remains on the surgical floor. He is postoperative day #6 from repair of LLQ dehiscence and postoperative day #15 from laparoscopic- assisted sigmoid colectomy. Per nursing, pt was complaining of SOB and edema overnight so was given 40mg of Lasik, which resolved his symptoms. Urine output remains excellent, with 4275 mL last shift via suprapubic catheter. Pt had no new bowel movements/liquid stool per rectal tube, but does continue to pass gas. Pt did complain of some mild muscle spasms in his left lower leg, which resolved with a dose Flexeril overnight. TPN was discontinued, and patient has tolerated his consistent carbs diet well, currently eating breakfast. Denies any current nausea, vomiting, diarrhea, SOB, fever, chills. Surgery Progress Note: Obj - Vital signs Vital signs: Vital Signs - Most Recent Temp Pulse Resp BP Pulse Ox 98.4 F 87 20 132/72 94 L 05/06/19 03:46 05/06/19 03:46 05/06/19 03:46 05/06/19 03:46 05/06/19 04:00 He remains afebrile and vital signs are within normal limits. - Physical Exam General: other (Patient is a morbidly obese male, who was lying comfortably in bed/NAD. Cooperative.) Neck: no lymphadectomy Cardiovascular: regular rate and rhythm, no murmur Respiratory: other (clear to auscultation bilaterally without wheezing, rales, or rhonchi.) Abdomen: other (Obese, but soft. NABS. Generally non-tender with only mild/ appropriate tenderness near wound vac. Wound vac intact over LLQ incision.) Integumentary: other (multiple chronic rashes visible on LE (feet and mid-tibia) , palpable dorsalis pedis pulses.) Surgery Progress Note: Results - Labs Result Diagrams: 05/06/19 03:30 05/06/19 03:30 Lab results: Laboratory Results - last 24 hr 05/05/19 05/06/19 05/06/19 20:57 03:30 03:30 WBC 15.8 H RBC 3.13 L Hgb 8.8 L Hct 28.4 L MCV 90.9 MCH 28.1 MCHC 31.0 L RDW 15.3 H Plt Count 450 H MPV 7.0 L Neutrophils % 78.1 H Lymphocytes % 9.5 L Monocytes % 8.9 Eosinophils % 3.3 Basophils % 0.3 Neutrophils # 12.4 H Lymphocytes # 1.5 Monocytes # 1.4 H Eosinophils # 0.5 Basophils # 0.0 Sodium 136 Potassium 4.1 Chloride 95 L Carbon Dioxide 35 H Anion Gap 10 BUN 9 Creatinine 0.61 L Estimated GFR (MDRD) Greater than 90 Glucose 150 H POC Glucose 164 H Calcium 8.1 05/06/19 05:55 WBC RBC Hgb Hct MCV MCH MCHC RDW Plt Count MPV Neutrophils % Lymphocytes % Monocytes % Eosinophils % Basophils % Neutrophils # Lymphocytes # Monocytes # Eosinophils # Basophils # Sodium Potassium Chloride Carbon Dioxide Anion Gap BUN Creatinine Estimated GFR (MDRD) Glucose POC Glucose 152 H Calcium BMP continues to show mild electrolyte abnormalities. Glucose has improved to 152 after running throughout the 200s...203-282 yesterday. CBC shows stable hemoglobin of 8.8; however, his leukocytosis has increased to 15.89 from 14.8 with neutrophila, and platelets are up to 450. Surgery Progress Note: A/P - Plan Plan: Mr. Lock is a 54 y/o male with PMH of paraplegia, T2DM, and morbid obesity who is postoperative day #6 from repair of LLQ dehiscence and postoperative day #15 from laparoscopic-assisted sigmoid colectomy. He states that he is doing well today and is tolerating his oral diet and medications well. Urine output remains excellent responding to lasik last night. We will continue to monitor his vitals, bowel function, wound for any evidence of recurrent dehiscence, and repeat CBC in light of upward trend of WBC. Pending results of CBC and if pt continues to tolerate diet, we will begin planning for discharge back to his facility tomorrow. Continue to monitor/manage glucose with bedside checks.
--- NOTE | 2019-05-06 08:51 | PRG ---
DATE OF SERVICE: 05/06/2019 SUBJECTIVE: Mr. Lock is resting comfortably in bed, tolerating his solid diabetic diet. He has had no nausea or vomiting. He is eating all of his meals. He still has a rectal tube in place and I am told that he has not really had any diarrhea from this in the last day or so. He has no complaints. On examination, he remains afebrile with normal vital signs. He did receive dose of Lasix last night, which produced excellent urine output overnight. It is noted that he is typically on diuretics in an outpatient setting that had been restarted here in the hospital. Lungs are clear to auscultation. Abdomen is massively obese and difficult to examine, but does not appear to be tender. He does have normoactive bowel sounds without any tympany that I can appreciate today. LABORATORY DATA: It is noted that his white blood cell count is elevated from 14.8 yesterday to 15.8 today. Hemoglobin is 8.8. His chemistry show mild electrolyte abnormalities without any concerning changes. ASSESSMENT: The patient's ileus following his sigmoid colon resection 12 days ago seems to have resolved. I am not certain why his white blood cell count is elevated. He still has a wound VAC on his left lower quadrant wound where dehiscence occurred that was repaired six days ago. From a surgical standpoint, he appears to be stable for discharge back to this facility. He will require continued wound VAC. All of his home medications are to be resumed. I would hope to see him back in my office in 7 to 10 days, so I can recheck his left lower quadrant wound. Given his massive obesity, he is certainly at risk for this dehiscence again. Job ID: [id number]
[2019-05-06] MEDS ORDERED: Acetaminophen 500 MG TAB PO PRN (08:56)
[2019-05-06] MEDS ORDERED: Guaifenesin DM 100-10/5 ML UDCUP PO PRN (08:58)
[2019-05-06] MEDS ORDERED: Loratadine 10 MG TAB PO PRN (08:59)
[2019-05-06] MEDS ORDERED: Furosemide 80 MG TAB PO SCH (09:00)
[2019-05-06] MEDS ORDERED: Spironolactone 25 MG TAB PO SCH (09:00)
[2019-05-06] MEDS ORDERED: Magnesium Oxide 400 MG TAB PO SCH (09:00)
[2019-05-06] MEDS ORDERED: Saccharomyces boulardii 250 MG CAP PO SCH (09:00)
[2019-05-06] MEDS ORDERED: Lubiprostone 8 MCG CAP PO SCH (09:00)
[2019-05-06] MEDS ORDERED: Gabapentin 300 MG CAP PO SCH (09:00)
[2019-05-06] MEDS ORDERED: Oxybutynin ER 5 MG TAB PO SCH (09:00)
[2019-05-06] MEDS ORDERED: Artificial Tear Sol 15 ML BOT EA EYE PRN (09:01)
[2019-05-06] MEDS: Insulin Glargine 30 UNITS in Pre-Filled Syringe 1 EACH SC SCH (09:47)
[2019-05-06] MEDS ORDERED: Potassium Chloride 10 MEQ TAB PO SCH (10:00)
[2019-05-06 12:16] VITALS: BP 130/75; TEMP 97.6
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
[2019-05-07] MEDS ORDERED: Potassium Chloride 10 MEQ TAB PO SCH (09:00)
[2019-05-07] MEDS ORDERED: Metformin Hcl [Metformin Hcl Er] 750 MG PO SCH (09:00)
[2019-05-07] MEDS ORDERED: Citalopram 20 MG TAB PO SCH (09:00)
--- NOTE | 2019-05-09 09:07 | PQF ---
SHANTEL SEN BRANDON [id number] [facility] A- [id number] CLINICAL DOCUMENTATION CLARIFICATION FORM: POST DISCHARGE Addendum to original discharge summary date: ____ Late entry note date: __ Date: 05/09/2019 ATTN: NANCY RASMUSESN Please exercise your independent, professional judgment in responding to the clarification form. Clinical indicators are provided on the bottom of this form for your review Please check appropriate box(s): [ x] Protein Calorie Malnutrition: [ ] Mild [ ] Moderate [ x ] Severe (in setting of acute illness) [ ] Other diagnosis [ ] Unable to determine CLINICAL INDICATORS - SIGNS / SYMPTOMS / LABS - Protein calorie malnutrition-Progress note, 05/01, Massimo Baca MD - Serum total protein: 5.8L, 5.6L- Laboratory, 05/01, 05/02 - Albumin: 2.9L, 3.2L-Laboratory, 05/01, 05/02 - Anemia- DS, 05/06, NANCY RASMUSSEN MD - morbid obesity-DS, 05/06, NANCY RASMUSSEN MD - Current BMI:47.5-FNS assessment-04/01 RISK FACTORS - Paraplegia- DS, 05/06, NANCY RASMUSSEN MD - Laparoscopic-assisted sigmoid colectomy-DS, 05/06, NANCY RASMUSSEN MD - Sigmoid volvulus- OP report, 04/21, Nikunj Mora MD - Postoperative ileus- Progress note, 04/24, Danilo Georges MD TREATMENT: -Diet with TPN-DS, 05/06, NANCY RASMUSSEN MD -Multivitamins.IV MAR, 04/29, Moderate Malnutrition (in acute illness) Energy Intake: <75% of estimated energy requirement for > 7 days Weight Loss: 1-2%/1 week; 5%/ 1 month; 7.5%/3 months Other: mild body fat loss; mild muscle mass loss; mild fluid accumulation; Severe Malnutrition (in acute illness) Energy Intake: < 50% of estimated energy requirement for > 5 days Weight Loss: >1-2%/1 week; >5%/1 month; >7.5%/3 months Other: moderate body fat loss; moderate muscle mass loss; moderate- severe fluid accumulation; measurably reduced private equity analyst strength Moderate Malnutrition (in chronic illness) Energy Intake: <75% of estimated energy requirement for >1 month Weight Loss: 5%/1 month; 7.5%/3 months; 10%/6 months; 20%/1 year Other: mild body fat loss; mild muscle mass loss; mild fluid accumulation Severe Malnutrition (in chronic illness) Energy Intake: <75% of estimated energy requirement for >1 month Weight Loss: >5%/1 month; >7.5%/3 months; >10%/6 months; >20%/1 year Other: severe body fat loss; severe muscle mass loss; severe fluid accumulation ; measurably reduced private equity analyst strength (This form is maintained as a part of the permanent medical record) 2014 [employer]. All Rights Reserved Melvi Starks [not provided] [not provided] CRYSTAL
== END 2019-05-06 14:40 | DRG 329 ==
LOC: ERS 21:51 → SURG A 04-20 01:00
PROVIDERS: ADMIT Family Medicine; ATTEND Family Medicine
PROC: 0D7N8ZZ Dilation of Sigmoid Colon, Via Natural or Artificial Opening Endoscopic (ICD-10-PCS; principal; 2019-04-20)
PROC: 3E0436Z Introduction of Nutritional Substance into Central Vein, Percutaneous Approach (ICD-10-PCS; 2019-04-29)
PROC: 0JC80ZZ Extirpation of Matter from Abdomen Subcutaneous Tissue and Fascia, Open Approach (ICD-10-PCS; 2019-04-30)
PROC: 2W13X6Z Compression of Abdominal Wall using Pressure Dressing (ICD-10-PCS; 2019-04-30)
PROC: 02HV33Z Insertion of Infusion Device into Superior Vena Cava, Percutaneous Approach (ICD-10-PCS; 2019-04-30)
PROC: 0DBN0ZZ Excision of Sigmoid Colon, Open Approach (ICD-10-PCS; 2019-04-30)
DX: K56.2 Volvulus (principal); E43 Unspecified severe protein-calorie malnutrition; T81.31XA Disruption of external operation (surgical) wound, not elsewhere classified, initial encounter; L03.311 Cellulitis of abdominal wall; G82.20 Paraplegia, unspecified; Z68.41 Body mass index [BMI] 40.0-44.9, adult; K91.870 Postprocedural hematoma of a digestive system organ or structure following a digestive system procedure; K91.89 Other postprocedural complications and disorders of digestive system; Y83.8 Other surgical procedures as the cause of abnormal reaction of the patient, or of later complication, without mention of misadventure at the time of the procedure; K21.9 Gastro-esophageal reflux disease without esophagitis; E11.9 Type 2 diabetes mellitus without complications; E66.01 Morbid (severe) obesity due to excess calories; I10 Essential (primary) hypertension; G47.33 Obstructive sleep apnea (adult) (pediatric); N31.9 Neuromuscular dysfunction of bladder, unspecified; D64.9 Anemia, unspecified; K59.09 Other constipation; R19.7 Diarrhea, unspecified; K56.7 Ileus, unspecified; Z87.891 Personal history of nicotine dependence
CPT/HCPCS: 36415; 36416; 71045; 74018; 74177; 80048; 80053; 80061; 82040; 82728; 83540; 83550; 83735; 84100; 84134; 85025; 85610; 85730; 87324; 87449; 88307; 93005; 93010; 94640; 99284; 99285; A4217; C9113; J0131; J0670; J0694; J1100; J1650; J1815; J1885; J1940; J2001; J2250; J2270; J2405; J2704; J2765; J3010; J3475; J3480; J3490; J7050; J7120; J7620; Q9967; S0028

== ENCOUNTER 2019-06-03 16:26 | Emergency (ER) | payer MEDICARE, MEDICAID ==
[~2019-06-03 16:26] MED LIST: Iopamidol-370 76% 500 ML 1 ML ONE
[2019-06-03 18:06] LABS: Bilirubin Negative (Negative); Blood, Urine 2+ (Negative); Calcium Oxalate Crystals 3+ HPF (None Seen); Clarity Turbid (Clear); Glucose, Urine (Dipstick) Normal (Negative); Leukocyte 500 Leu/uL (Negative); Nitrite Negative (Negative); Protein, Urine (Dipstick) 20 mg/dL (Neg-Trace); RBC/HPF 21-50 HPF (0-3); Squamous Epithelial 0-3 HPF (0-3); Urobilinogen Normal mg/dL (Less than 2); WBC/HPF Greater than 50 HPF (0-3)
[2019-06-03 18:08] LABS: Bacteria/HPF 1+ HPF (None Seen)
[2019-06-03 18:35] LABS: #Eosinphils 0.4 thou/uL (0.0-0.7); #Lymphocytes 2.2 thou/uL (1.20-3.40); #Monocytes 0.9 thou/uL (0.11-0.59); %Basophils 0.3 % (0.0-1.0); %Eosinophils 3.1 % (0.0-10.0); %Lymphocytes 16.1 % (21.0-51.0); %Monocytes 6.7 % (0.0-10.0); %Neutrophils 73.9 % (42.0-75.0); Hemoglobin 11.2 g/dL (14.0-18.0); Mean Corpuscular Hemoglobin 26.4 pg (27.0-31.0); Mean Corpuscular Volume 82.7 fL (78.0-98.0); Mean Platelet Volume 6.9 fL (7.4-10.4); Platelet Count 368 thou/uL (130-400); RBC Distribution Width 14.7 % (11.5-14.5); Red Blood Cell (RBC) Count 4.23 mill/uL (4.70-6.10); White Blood Cell (WBC) Count 13.6 thou/uL (4.8-10.8)
[2019-06-03 18:59] LABS: ALT (SGPT) 23 U/L (8-55); AST (SGOT) 31 U/L (5-34); Albumin 3.6 g/dL (3.5-5.0); Alkaline Phosphatase 96 U/L (40-110); Anion Gap 13 mmol/L (10-20); BUN (Urea Nitrogen) 10 mg/dL (8.4-25.7); Bilirubin, Total 0.3 mg/dL (0.2-1.2); Calc. Creatinine Clearance 0 mL/min (70-130); Carbon Dioxide 29 mmol/L (22-29); Chloride 96 mmol/L (98-107); Estimated GFR-MDRD Greater than 90; Globulin 3.6 g/dL (2.4-3.5); Glucose 166 mg/dL (70-105); Lipase 16 U/L (8-78); Potassium 3.8 mmol/L (3.5-5.1); Protein, Total 7.2 g/dL (6.0-8.3); Sodium 134 mmol/L (136-145)
--- NOTE | 2019-06-03 19:06 | CT ---
CT OF THE ABDOMEN AND PELVIS WITH CONTRAST: 06/03/19 COMPARISON: 04/26/19. HISTORY: Patient recently had a suprapubic catheter placement. This was exchanged recently. Since the exchang e, the patient has decreased output from the suprapubic catheter and lower abdominal pain. TECHNIQUE: Multiple contiguous axial images were obtained in a CT of the abdomen and pelvis with contrast. Sagit patito and coronal reformats were performed. FINDINGS: A suprapubic catheter is seen within the urinary bladder which is decompressed. This is in a similar position compared to the prior CT. No free air, free fluid, or stranding changes are seen in the abd omen or pelvis. The liver, gallbladder, kidneys, adrenal glands, spleen, and pancreas are unremarkable. A moderate amount of stool is seen in the rectal vault. The large and small bowel are normal in calib er without significant distention. No abdominal or pelvic lymphadenopathy are seen. Degenerative changes are see in the spine. The visualized inferior thorax and abdominal wall soft tis sues are unremarkable. IMPRESSION: 1. A suprapubic catheter appears to be within the urinary bladder which is decompressed. 2. Moderate stool in the rectal vault. POS: [facility]
== END 2019-06-03 23:11 ==
LOC: ERS 16:26
DX: K59.00 Constipation, unspecified (principal); N32.89 Other specified disorders of bladder; D64.9 Anemia, unspecified; G47.00 Insomnia, unspecified; K21.9 Gastro-esophageal reflux disease without esophagitis; I10 Essential (primary) hypertension; E11.9 Type 2 diabetes mellitus without complications; Z79.899 Other long term (current) drug therapy; Z79.84 Long term (current) use of oral hypoglycemic drugs
CPT/HCPCS: 36415; 74177; 80053; 81003; 81015; 83690; 85025; 87077; 87086; 87186; Q9967

== ENCOUNTER 2019-11-10 10:05 | Outpatient (CLI) | payer MEDICARE, MEDICAID ==
--- NOTE | 2019-11-10 12:52 | RAD ---
SUPINE ABDOMEN: A total of 4 images were obtained to adequately evaluate all quadrants. INDICATION: Left upper quadrant pain. FINDINGS/IMPRESSION: A large amount of stool throughout the colon suggests constipation. Nonspecific small bowel gas. Mi ld gaseous distention of the stomach. Prominent degenerative changes at both hips. POS: [facility]
== END 2019-11-10 10:06 | disposition home or self-care (01) ==
LOC: ULT 10:05
PROVIDERS: ATTEND Family Medicine
DX: R10.12 Left upper quadrant pain (principal); M16.0 Bilateral primary osteoarthritis of hip; K31.89 Other diseases of stomach and duodenum
CPT/HCPCS: 74018

== ENCOUNTER 2020-01-11 10:16 | Inpatient (IN) | payer MEDICARE, MEDICAID, OTHER ==
[2020-01-11 11:07] LABS: #Eosinphils 0.1 thou/uL (0.0-0.7); #Lymphocytes 0.7 thou/uL (1.20-3.40); #Monocytes 0.7 thou/uL (0.11-0.59); #Neutrophils 6.9 thou/uL (1.40-6.50); %Eosinophils 0.8 % (0.0-10.0); %Lymphocytes 8.7 % (21.0-51.0); %Monocytes 8.2 % (0.0-10.0); %Neutrophils 82.4 % (42.0-75.0); Hemoglobin 12.4 g/dL (14.0-18.0); Mean Corpuscular HGB CONC 32.1 g/dL (32.0-36.0); Mean Corpuscular Hemoglobin 27.5 pg (27.0-31.0); Mean Corpuscular Volume 85.6 fL (78.0-98.0); Platelet Count 244 thou/uL (130-400); White Blood Cell (WBC) Count 8.4 thou/uL (4.8-10.8)
[2020-01-11 11:35] LABS: ALT (SGPT) 37 U/L (8-55); AST (SGOT) 61 U/L (5-34); Albumin 3.4 g/dL (3.5-5.0); Alkaline Phosphatase 107 U/L (40-110); Anion Gap 12 mmol/L (10-20); BUN (Urea Nitrogen) 10 mg/dL (8.4-25.7); Calc. Creatinine Clearance 0 mL/min (70-130); Calcium 8.3 mg/dL (7.8-10.44); Carbon Dioxide 31 mmol/L (22-29); Chloride 91 mmol/L (98-107); Estimated GFR-MDRD Greater than 90; Globulin 3.9 g/dL (2.4-3.5); Glucose 144 mg/dL (70-105); Potassium 3.6 mmol/L (3.5-5.1); Protein, Total 7.3 g/dL (6.0-8.3); Sodium 130 mmol/L (136-145)
--- NOTE | 2020-01-11 11:40 | RAD ---
RADIOGRAPH CHEST 1 VIEW: DATE: 01/11/2020 TIME: 11:33 AM HISTORY: 54-year-old male with cough and hypoxemia COMPARISON: 04/30/2019 FINDINGS: New finding of bilateral extensive patchy alveolar infiltrates. Enlargement of cardiac shadow is at l east in part due to magnification, but there may also be true cardiomegaly. Pulmonary venous engorgement. No pneumothorax. IMPRESSION: Multifocal bilateral patchy infiltrates, probably representing moderately severe pneumonia, although pulmonary edema is an alternative possibility.
[2020-01-11] MEDS ORDERED: Enoxaparin Sodium 100 MG/ML SYRINGE ONE (12:12)
[2020-01-11] MEDS ORDERED: Dexamethasone 10 MG/ML VIAL ONE (12:12)
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
[2020-01-11] MEDS ORDERED: Calcium Carbonate 500 MG ChewTAB PO PRN (13:41)
[2020-01-11] MEDS ORDERED: Dextrose 5% in Water 1,000 ML IV PRN (13:41)
[2020-01-11] MEDS ORDERED: Dextrose 50% Abboject 50 ML SYRINGE SLOW IVP PRN (13:41)
[2020-01-11] MEDS ORDERED: Acetaminophen 325 MG TAB PO PRN (13:41)
[2020-01-11] MEDS ORDERED: Ondansetron PF 4 MG/2 ML Vial IVP PRN (13:41)
[2020-01-11] MEDS ORDERED: Loratadine 10 MG TAB PO PRN (15:56)
[2020-01-11] MEDS ORDERED: Furosemide 40 MG/4 ML VIAL SLOW IVP SCH (16:30)
[2020-01-11 16:53] LABS: Actual Bicarbonate (HCO3a) 31.5 mEq/L (22-28); Base Excess (BEa) 6.2 mEq/L (-2.0 to +3.0); CO2 Tension 48.1 mmHg (35.0-45.0); Calcium, Ionized (arterial) 1.02 mmol/L (1.12-1.30); Carboxyhemoglobin (COHb) 0.6 gm% (0.0-3.0); Hemoglobin (Hb) 13.3 g/dL (14.0-18.0); O2 Tension (PaO2), arterial 61.6 mmHg (80.0-100.0); Potassium - ABG Lab 3.55 mmol/L (3.70-5.30); pH, Arterial 7.43 (7.35-7.45)
[2020-01-11 16:57] LABS: ALV-art Gradient 134.955 (0-20); Puncture Site RRA
[2020-01-11] MEDS: Gabapentin 300 MG CAP PO SCH (20:08)
[2020-01-11] MEDS: metFORMIN 500 MG TAB PO SCH (20:08)
[2020-01-11] MEDS: Cyclobenzaprine 10 MG TAB PO SCH (20:08)
[2020-01-11] MEDS: Lubiprostone 8 MCG CAP PO SCH (20:08)
[2020-01-11] MEDS: Cefepime 2 GM in Sodium Chloride 0.9% 100 ML IVPB SCH (20:10)
[2020-01-11] MEDS ORDERED: Albuterol 200 PUFF (6.7GM INHALER) INH PRN (21:15)
[2020-01-11] MEDS ORDERED: Nystatin Powder 15 GM BOT TOP PRN (21:42)
[2020-01-11] MEDS: Guaifenesin DM 100-10/5 ML UDCUP PO PRN (22:06)
[2020-01-12 05:36] LABS: Anion Gap 15 mmol/L (10-20); BUN (Urea Nitrogen) 13 mg/dL (8.4-25.7); Calc. Creatinine Clearance 266 mL/min (70-130); Calcium 8.2 mg/dL (7.8-10.44); Carbon Dioxide 25 mmol/L (22-29); Chloride 93 mmol/L (98-107); Estimated GFR-MDRD Greater than 90; Glucose 166 mg/dL (70-105); Potassium 3.6 mmol/L (3.5-5.1); Sodium 129 mmol/L (136-145)
[2020-01-12 06:03] LABS: Band 4 % (5-11); Hemoglobin 12.4 g/dL (14.0-18.0); Hypochromia SLIGHT = 6-15 cells (100X) (0-5/hpf); Lymphocytes 15 % (21-51); MDiff Complete? YES; Mean Corpuscular HGB CONC 31.5 g/dL (32.0-36.0); Mean Corpuscular Hemoglobin 27.4 pg (27.0-31.0); Mean Corpuscular Volume 87.1 fL (78.0-98.0); Mean Platelet Volume 7.7 fL (7.4-10.4); Monocytes 8 % (0-10); Neutrophil 73 % (42-75); Platelet Count 260 thou/uL (130-400); Platelet Morphology Comment Appears Adequate; Red Blood Cell (RBC) Count 4.51 mill/uL (4.70-6.10); White Blood Cell (WBC) Count 6.3 thou/uL (4.8-10.8)
--- NOTE | 2020-01-12 06:25 | PDOC.FM ---
- Subjective Subjective: Doing well this morning. States he is worried about COVID, however he is optimistic. We discussed the interventions available (Remdesivir and convalescent plasma) and he is willing to try any medication to make him better faster. - Objective MAR Reviewed: Yes Vital Signs & Weight: Vital Signs (12 hours) Temp Pulse Resp BP Pulse Ox 01/12/20 03:40 98.6 F 84 20 103/54 L 95 01/12/20 00:00 20 96 01/11/20 20:21 98.9 F 90 18 109/61 94 L 01/11/20 20:00 94 L Weight Weight 145 kg I&O: 01/10/20 01/11/20 01/12/20 06:59 06:59 06:59 Intake Total 600 Output Total 425 Balance 175 Result Diagrams: 01/12/20 05:07 01/12/20 05:07 Phys Exam - Physical Examination Constitutional: NAD HEENT: moist MMs Neck: supple, full ROM Respiratory: no wheezing, no rhonchi, clear to auscultation bilateral Fine crackles throughout Cardiovascular: RRR, no significant murmur Gastrointestinal: soft, non-tender Non-pitting edema presents Neurological: non-focal Paraplegic Psychiatric: normal affect, A&O x 3 Skin: no rash, normal turgor Dx/Plan (1) COVID-19 Code(s): U07.1 - COVID-19 Status: Acute (2) Pneumonia Code(s): J18.9 - PNEUMONIA, UNSPECIFIED ORGANISM Status: Acute (3) Acute respiratory failure with hypoxia Code(s): J96.01 - ACUTE RESPIRATORY FAILURE WITH HYPOXIA Status: Acute (4) Diabetes mellitus Code(s): E11.9 - TYPE 2 DIABETES MELLITUS WITHOUT COMPLICATIONS Status: Acute (5) Physical deconditioning Code(s): R53.81 - OTHER MALAISE Status: Acute (6) GERD (gastroesophageal reflux disease) Code(s): K21.9 - GASTRO-ESOPHAGEAL REFLUX DISEASE WITHOUT ESOPHAGITIS Status: Chronic (7) Hypertension Code(s): I10 - ESSENTIAL (PRIMARY) HYPERTENSION Status: Chronic Qualifiers: Hypertension type: essential hypertension Qualified Code(s): I10 - Essential (primary) hypertension (8) Morbid obesity with BMI of 40.0-44.9, adult Code(s): E66.01 - MORBID (SEVERE) OBESITY DUE TO EXCESS CALORIES; Z68.41 - BODY MASS INDEX (BMI) 40.0-44.9, ADULT Status: Chronic (9) Neurogenic bladder Code(s): N31.9 - NEUROMUSCULAR DYSFUNCTION OF BLADDER, UNSPECIFIED Status: Chronic (10) Paraplegia Code(s): G82.20 - PARAPLEGIA, UNSPECIFIED Status: Chronic (11) Suprapubic catheter Code(s): Z93.59 - OTHER CYSTOSTOMY STATUS Status: Chronic (12) Venous insufficiency of both lower extremities Code(s): I87.2 - VENOUS INSUFFICIENCY (CHRONIC) (PERIPHERAL) Status: Chronic - Plan Plan: Acute hypoxic respiratory failure 2/2 COVID 19 Pneumonia - Positive result from halfway (). Report will be faxed. Hospital swab pending. -95% on 5L NC. Desaturates down into low 80s when off NC or with position changes. -CXR shows bilateral patchy infiltrates read as probable pneumonia. -Will trend daily d-dimer. Procal 0.19 making bacterial superinfection less likely. Will consider d/c-ing antibiotics. -Cefepime (01/10) -Dexamthasone 6mg IV q day. -Consulted ID for remdesivir and/or convalescent plasma. Diarrhea -Likely related to COVID 19. -C Diff negative DM II -patient on oral therapy. -continue home medications, SSI, and hypoglycemia protocol Prolonged QT interval -QTC 512. Will avoid QT prolonging agents and monitor on telemetry. Neurogenic bladder -Patient believes he is due for catheter change. Will discuss with urology. -Continue home medications HTN -Continue lasix and spironolactone. -Patient does not have documented history of HF. Continue home prn medications Dispo: Stable, inpatient. Code: FULL. Discussed in detail with patient, that if COVID + and he declines he would like all resuscitative measures including intubation. PCP: Felipe VTE ppx: Lovenox GI ppx: Not indicated. Addendum - Attending - Attending Attestation Date/Time: 01/12/20 9827 I personally evaluated the patient and discussed the management with Dr. Jose. I agree with the History, Examination, Assessment and Plan documented above with any addition or exceptions noted below. COVID positive at [facility]. ID consult. Start remdesivir and convelescent plasma. Continue supplemental oxygen, Th anticoagulation, and decadron.
[2020-01-12] MEDS ORDERED: Enoxaparin Sodium 40 MG/0.4 ML SYRINGE SC SCH (09:00)
[2020-01-12] MEDS: Cyclobenzaprine 10 MG TAB PO SCH ×3 (10:02→19:42)
[2020-01-12] MEDS: Oxybutynin ER 5 MG TAB PO SCH (10:02)
[2020-01-12] MEDS: Cefepime 2 GM in Sodium Chloride 0.9% 100 ML IVPB SCH (10:02)
[2020-01-12] MEDS: Saccharomyces boulardii 250 MG CAP PO SCH (10:03)
[2020-01-12] MEDS: metFORMIN 500 MG TAB PO SCH ×2 (10:03→19:43)
[2020-01-12] MEDS: Dexamethasone 4 mg/ml Vial SLOW IVP SCH (10:03)
[2020-01-12] MEDS: Furosemide 80 MG TAB PO SCH (10:04)
[2020-01-12] MEDS: Lubiprostone 8 MCG CAP PO SCH ×2 (10:04→20:08)
[2020-01-12] MEDS: Spironolactone 25 MG TAB PO SCH (10:04)
[2020-01-12] MEDS: Gabapentin 300 MG CAP PO SCH ×3 (10:04→19:43)
[2020-01-12] MEDS: Potassium Chloride 10 MEQ TAB PO SCH (10:04)
[2020-01-12] MEDS: Citalopram 20 MG TAB PO SCH (10:04)
[2020-01-12] MEDS: HumaLOG 300 UNITS/3 ML VIAL SC PRN ×2 (12:16→17:05)
[2020-01-12 13:18] VITALS: BMI 42.7
[2020-01-12 13:43] LABS: SARS-CoV-2 MS2 Positive; SARS-CoV-2 N Gene Positive; SARS-CoV-2 S Gene Positive; SARS-CoV-2 orf1ab Positive
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
[2020-01-12 18:07] LABS: Actual Bicarbonate (HCO3a) 29.6 mEq/L (22-28); Base Excess (BEa) 5.9 mEq/L (-2.0 to +3.0); CO2 Tension 39.8 mmHg (35.0-45.0); Calcium, Ionized (arterial) 1.07 mmol/L (1.12-1.30); Carboxyhemoglobin (COHb) 0.1 gm% (0.0-3.0); Hemoglobin (Hb) 12.8 g/dL (14.0-18.0); Potassium - ABG Lab 3.33 mmol/L (3.70-5.30); pH, Arterial 7.49 (7.35-7.45)
[2020-01-12 18:11] LABS: Puncture Site RRA
[2020-01-12] MEDS: Enoxaparin Sodium 80 MG/0.8 ML SYRINGE SC SCH (19:43)
[2020-01-12] MEDS: Enoxaparin Sodium 60 MG/0.6 ML SYRINGE SC SCH (19:43)
--- NOTE | 2020-01-12 19:48 | CON ---
DATE OF CONSULTATION: 01/12/2020 REASON FOR CONSULT: Suprapubic tube exchange. HISTORY OF PRESENT ILLNESS: Mr. Lock is a 54-year-old male, known to me with history of neurogenic bladder, previously followed by [facility], initial SP tube was placed by [facility]. The patient has defunctionalized urethra with history of urethral stricture. Has a large suprapubic tube due to body habitus and bladder spasms. He is on oxybutynin 10 mg XL, due to bladder spasms on SP tube exchange every 4 weeks. His last suprapubic tube was exchanged on December 25, 28-Belgian 40 mL. He states that over the last few days, there has been leakage around the catheter, however, per nursing staff, his catheter has been draining without significant issues. As he is admitted, due to hypoxia, he has been tested for COVID, which is positive. He is on multiple medications including steroids, antibiotics, and states that he is feeling somewhat better. Urine output has been yellow with mild sediment as previously noted. 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 PAST SURGICAL HISTORY: Includes ventral hernia repair, suprapubic tube placement in March 2009, colonoscopy with decompression November 18, 2018. SOCIAL HISTORY: Smokes cigar. intermediate resident. ALLERGIES: NO KNOWN DRUG ALLERGIES. REVIEW OF SYSTEMS: Ten-point review of systems as above, otherwise noncontributory. PHYSICAL EXAMINATION: VITAL SIGNS: He is afebrile. 98, 91% on 5 L, blood pressure 116/63. I's and O's 425 of urine output. GENERAL: The patient appears fatigued. HEENT: Grossly unremarkable. HEART: Regular rate. LUNGS: Intermittent crackles, wheezing. ABDOMEN: Morbidly obese. Suprapubic tube site demonstrates no significant change, mild erythema which is chronic in nature with no active drainage of pus. : His preexisting 28-Belgian suprapubic tube was removed. A new 28-Belgian 30 mL balloon, filled with 35 mL of sterile water, irrigates ease with clear. SP tube then secured to [employer]Lock x2. Penis is buried due to morbid obesity. Testes are descended with no evidence of intratesticular mass. EXTREMITIES: Chronic edema and chronic cellulitic changes of the lower extremities Psychiatric: Appears appropriate and intact Extremities: Moving upper extremities without significant issues. As previously noted his chronic venous stasis changes of the lower extremity edema , PERTINENT LABORATORY DATA: Sodium 129, creatinine 0.65. White count 6.7, hemoglobin 12, and platelets 260. IMPRESSION: 1. Mr. Lock is a 54-year-old male, currently admitted for COVID-19 pneumonia and hypoxia. 2. Chronic SP tube due to paraplegia. His suprapubic tube is exchanged today uneventfully. will provide the patient with a followup outpatient visit for interval suprapubic tube exchange in 4-week interval. No further intervention is warranted. Continue antispasmodics, oxybutynin 10 mg XL one p.o. daily. will sign off, call if questions or concerns Job ID: [id number]
[2020-01-12] MEDS ORDERED: REMDESIVIR IV SCH (20:00)
[2020-01-12] MEDS ORDERED: SODIUM CHLORIDE 0.9% IV SCH (20:00)
[2020-01-12] MEDS: Guaifenesin DM 100-10/5 ML UDCUP PO PRN (21:29)
[2020-01-12] MEDS ORDERED: Chloraseptic Spray 180 ml Bottle PO PRN (23:45)
[2020-01-13 05:31] LABS: ALT (SGPT) 30 U/L (8-55); AST (SGOT) 44 U/L (5-34); Albumin 3.2 g/dL (3.5-5.0); Alkaline Phosphatase 91 U/L (40-110); Anion Gap 12 mmol/L (10-20); BUN (Urea Nitrogen) 14 mg/dL (8.4-25.7); Bilirubin, Total 0.5 mg/dL (0.2-1.2); Calc. Creatinine Clearance 244 mL/min (70-130); Calcium 8.4 mg/dL (7.8-10.44); Carbon Dioxide 31 mmol/L (22-29); Chloride 94 mmol/L (98-107); Estimated GFR-MDRD Greater than 90; Globulin 3.5 g/dL (2.4-3.5); Glucose 153 mg/dL (70-105); Potassium 3.2 mmol/L (3.5-5.1); Protein, Total 6.7 g/dL (6.0-8.3); Sodium 134 mmol/L (136-145)
--- NOTE | 2020-01-13 06:16 | PDOC.FM ---
- Subjective Subjective: Feeling well this morning, tolerating HFNC well. - Objective MAR Reviewed: Yes Vital Signs & Weight: Vital Signs (12 hours) Temp Pulse Resp BP Pulse Ox 01/13/20 04:00 98.5 F 78 24 H 119/59 L 98 01/13/20 00:09 98.4 F 81 28 H 122/62 99 01/12/20 20:00 100 01/12/20 19:22 96 Weight Admit Weight 145 kg Weight 145 kg I&O: 01/11/20 01/12/20 01/13/20 06:59 06:59 06:59 Intake Total 600 1950 Output Total 425 425 Balance 175 1525 Result Diagrams: 01/12/20 05:07 01/13/20 04:05 Phys Exam - Physical Examination Constitutional: NAD HEENT: moist MMs Neck: supple Respiratory: no wheezing, no rhonchi, clear to auscultation bilateral Cardiovascular: RRR, no significant murmur Gastrointestinal: soft, non-tender Large abdominal hernia present. No evidence of incarceration. Musculoskeletal: edema present (stable ) Paraplegic Psychiatric: normal affect, A&O x 3 Skin: no rash, normal turgor Dx/Plan (1) COVID-19 Code(s): U07.1 - COVID-19 Status: Acute (2) Pneumonia Code(s): J18.9 - PNEUMONIA, UNSPECIFIED ORGANISM Status: Acute (3) Acute respiratory failure with hypoxia Code(s): J96.01 - ACUTE RESPIRATORY FAILURE WITH HYPOXIA Status: Acute (4) Diabetes mellitus Code(s): E11.9 - TYPE 2 DIABETES MELLITUS WITHOUT COMPLICATIONS Status: Acute (5) Physical deconditioning Code(s): R53.81 - OTHER MALAISE Status: Acute (6) GERD (gastroesophageal reflux disease) Code(s): K21.9 - GASTRO-ESOPHAGEAL REFLUX DISEASE WITHOUT ESOPHAGITIS Status: Chronic (7) Hypertension Code(s): I10 - ESSENTIAL (PRIMARY) HYPERTENSION Status: Chronic Qualifiers: Hypertension type: essential hypertension Qualified Code(s): I10 - Essential (primary) hypertension (8) Morbid obesity with BMI of 40.0-44.9, adult Code(s): E66.01 - MORBID (SEVERE) OBESITY DUE TO EXCESS CALORIES; Z68.41 - BODY MASS INDEX (BMI) 40.0-44.9, ADULT Status: Chronic (9) Neurogenic bladder Code(s): N31.9 - NEUROMUSCULAR DYSFUNCTION OF BLADDER, UNSPECIFIED Status: Chronic (10) Paraplegia Code(s): G82.20 - PARAPLEGIA, UNSPECIFIED Status: Chronic (11) Suprapubic catheter Code(s): Z93.59 - OTHER CYSTOSTOMY STATUS Status: Chronic (12) Venous insufficiency of both lower extremities Code(s): I87.2 - VENOUS INSUFFICIENCY (CHRONIC) (PERIPHERAL) Status: Chronic - Plan Plan: Acute hypoxic respiratory failure 2/ COVID 19 Pneumonia - Positive result from detention, Hospital swab positive. -98% on HFNC -Dexamthasone 6mg IV q day. -Consulted ID, he recommends Remdesivir (01/11 x 5 days) -[X] Cefepime (01/10) Diarrhea -Likely related to COVID 19. -C Diff negative DM II -patient on oral therapy. -continue home medications, SSI, and hypoglycemia protocol Prolonged QT interval -QTC 512. Will avoid QT prolonging agents and monitor on telemetry. Neurogenic bladder -SP Catheter changed 01/11. Continue oxybutynin 10mg daily. -Continue home medications HTN -Continue lasix and spironolactone. -Patient does not have documented history of HF. Continue home prn medications Dispo: Stable, inpatient. Code: FULL. Discussed in detail with patient, that if COVID + and he declines he would like all resuscitative measures including intubation. PCP: Felipe VTE ppx: Th Lovenox GI ppx: Not indicated. Addendum - Attending - Attending Attestation Date/Time: 01/13/20 [id number] I personally evaluated the patient and discussed the management with Dr. Jose. I agree with the History, Examination, Assessment and Plan documented above with any addition or exceptions noted below. Now on HFNC but maintains sats well with it. No clinical resp distress. Discussed need for possible intubation if clinic course worsens and he is agreeable if it is necessary. He is on remdesivir day 2.
[2020-01-13] MEDS ORDERED: Potassium Chloride 20 MEQ TAB PO SCH (08:30)
[2020-01-13] MEDS: Enoxaparin Sodium 80 MG/0.8 ML SYRINGE SC SCH ×2 (09:04→21:01)
[2020-01-13] MEDS: Enoxaparin Sodium 60 MG/0.6 ML SYRINGE SC SCH ×2 (09:04→21:01)
[2020-01-13] MEDS: Cyclobenzaprine 10 MG TAB PO SCH ×3 (09:06→21:01)
[2020-01-13] MEDS: Saccharomyces boulardii 250 MG CAP PO SCH (09:06)
[2020-01-13] MEDS: Citalopram 20 MG TAB PO SCH (09:06)
[2020-01-13] MEDS: Gabapentin 300 MG CAP PO SCH ×3 (09:06→21:01)
[2020-01-13] MEDS: Oxybutynin ER 5 MG TAB PO SCH (09:07)
[2020-01-13] MEDS: Potassium Chloride 10 MEQ TAB PO SCH (09:07)
[2020-01-13] MEDS: Furosemide 80 MG TAB PO SCH (09:07)
[2020-01-13] MEDS: Spironolactone 25 MG TAB PO SCH (09:07)
[2020-01-13] MEDS: metFORMIN 500 MG TAB PO SCH ×2 (09:08→21:01)
[2020-01-13] MEDS: Lubiprostone 8 MCG CAP PO SCH ×2 (09:09→21:03)
[2020-01-13] MEDS: Dexamethasone 4 mg/ml Vial SLOW IVP SCH (09:10)
[2020-01-13 13:35] LABS: Actual Bicarbonate (HCO3a) 28.8 mEq/L (22-28); CO2 Tension 39.6 mmHg (35.0-45.0); Calcium, Ionized (arterial) 1.07 mmol/L (1.12-1.30); Carboxyhemoglobin (COHb) 0.4 gm% (0.0-3.0); Hemoglobin (Hb) 13.3 g/dL (14.0-18.0); Potassium - ABG Lab 4.07 mmol/L (3.70-5.30); pH, Arterial 7.48 (7.35-7.45)
[2020-01-13 13:55] LABS: O2 Tension (PaO2), arterial 43.4 mmHg (80.0-100.0); Puncture Site RRAD
[2020-01-13] MEDS: HumaLOG 300 UNITS/3 ML VIAL SC PRN ×2 (14:00→18:35)
[2020-01-13 21:43] LABS: Actual Bicarbonate (HCO3a) 33.4 mEq/L (22-28); Base Excess (BEa) 9.1 mEq/L (-2.0 to +3.0); CO2 Tension 44.3 mmHg (35.0-45.0); Calcium, Ionized (arterial) 1.06 mmol/L (1.12-1.30); Carboxyhemoglobin (COHb) 0.5 gm% (0.0-3.0); Hemoglobin (Hb) 12.2 g/dL (14.0-18.0); O2 Tension (PaO2), arterial 83.4 mmHg (80.0-100.0); Potassium - ABG Lab 3.68 mmol/L (3.70-5.30)
[2020-01-13 21:45] LABS: ALV-art Gradient 253.375 (0-20); Puncture Site L RADIAL
[2020-01-14 05:11] LABS: Anion Gap 12 mmol/L (10-20); BUN (Urea Nitrogen) 14 mg/dL (8.4-25.7); Calc. Creatinine Clearance 251 mL/min (70-130); Calcium 8.1 mg/dL (7.8-10.44); Carbon Dioxide 31 mmol/L (22-29); Chloride 95 mmol/L (98-107); Estimated GFR-MDRD Greater than 90; Glucose 126 mg/dL (70-105); Potassium 3.5 mmol/L (3.5-5.1); Sodium 134 mmol/L (136-145)
--- NOTE | 2020-01-14 07:30 | PDOC.FM ---
- Subjective Subjective: Doing well this morning. Breathing comfortably. - Objective MAR Reviewed: Yes Vital Signs & Weight: Vital Signs (12 hours) Temp Pulse Resp BP Pulse Ox 01/14/20 04:20 98.3 F 71 20 114/57 L 96 01/13/20 21:00 98.6 F 80 18 120/56 L 99 Weight Admit Weight 145 kg Weight 145 kg I&O: 01/13/20 01/14/20 01/15/20 06:59 06:59 06:59 Intake Total 1950 1440 Output Total 2275 3680 Balance -325 -2210 Result Diagrams: 01/12/20 05:07 01/14/20 04:31 Phys Exam - Physical Examination Constitutional: NAD HEENT: moist MMs Neck: supple Respiratory: no wheezing, no rales, no rhonchi, clear to auscultation bilateral Diminished breath sounds d/t body habitus Cardiovascular: RRR, no significant murmur Gastrointestinal: soft, non-tender Musculoskeletal: no edema Neurological: non-focal Psychiatric: normal affect, A&O x 3 Skin: no rash, normal turgor Dx/Plan (1) COVID-19 Code(s): U07.1 - COVID-19 Status: Acute (2) Pneumonia Code(s): J18.9 - PNEUMONIA, UNSPECIFIED ORGANISM Status: Acute (3) Acute respiratory failure with hypoxia Code(s): J96.01 - ACUTE RESPIRATORY FAILURE WITH HYPOXIA Status: Acute (4) Diabetes mellitus Code(s): E11.9 - TYPE 2 DIABETES MELLITUS WITHOUT COMPLICATIONS Status: Acute (5) Physical deconditioning Code(s): R53.81 - OTHER MALAISE Status: Acute (6) GERD (gastroesophageal reflux disease) Code(s): K21.9 - GASTRO-ESOPHAGEAL REFLUX DISEASE WITHOUT ESOPHAGITIS Status: Chronic (7) Hypertension Code(s): I10 - ESSENTIAL (PRIMARY) HYPERTENSION Status: Chronic Qualifiers: Hypertension type: essential hypertension Qualified Code(s): I10 - Essential (primary) hypertension (8) Morbid obesity with BMI of 40.0-44.9, adult Code(s): E66.01 - MORBID (SEVERE) OBESITY DUE TO EXCESS CALORIES; Z68.41 - BODY MASS INDEX (BMI) 40.0-44.9, ADULT Status: Chronic (9) Neurogenic bladder Code(s): N31.9 - NEUROMUSCULAR DYSFUNCTION OF BLADDER, UNSPECIFIED Status: Chronic (10) Paraplegia Code(s): G82.20 - PARAPLEGIA, UNSPECIFIED Status: Chronic (11) Suprapubic catheter Code(s): Z93.59 - OTHER CYSTOSTOMY STATUS Status: Chronic (12) Venous insufficiency of both lower extremities Code(s): I87.2 - VENOUS INSUFFICIENCY (CHRONIC) (PERIPHERAL) Status: Chronic - Plan Plan: Acute hypoxic respiratory failure 2/2 COVID 19 Pneumonia - Positive result from [facility], Hospital swab positive. -Satting well on HFNC -Dexamthasone 6mg IV q day. -Consulted ID, Remdesivir (01/11 x 5 days) -[X] Cefepime (01/10) Diarrhea -Likely related to COVID 19. -C Diff negative DM II -patient on oral therapy. -continue home medications, SSI, and hypoglycemia protocol Prolonged QT interval -QTC 512. Will avoid QT prolonging agents and monitor on telemetry. Neurogenic bladder -SP Catheter changed 01/11. Continue oxybutynin 10mg daily. -Continue home medications HTN -Continue lasix and spironolactone. -Patient does not have documented history of HF. Continue home prn medications Dispo: Stable, inpatient. Code: FULL. Discussed in detail with patient, that if COVID + and he declines he would like all resuscitative measures including intubation. PCP: Felipe VTE ppx: Th [facility] ppx: Not indicated.
[2020-01-14] MEDS: Gabapentin 300 MG CAP PO SCH ×3 (07:54→20:16)
[2020-01-14] MEDS: Lubiprostone 8 MCG CAP PO SCH ×2 (07:54→20:16)
[2020-01-14] MEDS: Furosemide 80 MG TAB PO SCH (07:54)
[2020-01-14] MEDS: Cyclobenzaprine 10 MG TAB PO SCH ×3 (07:55→20:16)
[2020-01-14] MEDS: Saccharomyces boulardii 250 MG CAP PO SCH (07:55)
[2020-01-14] MEDS: metFORMIN 500 MG TAB PO SCH ×2 (07:55→20:19)
[2020-01-14] MEDS: Potassium Chloride 10 MEQ TAB PO SCH (07:55)
[2020-01-14] MEDS: Citalopram 20 MG TAB PO SCH (07:57)
[2020-01-14] MEDS: Oxybutynin ER 5 MG TAB PO SCH (07:57)
[2020-01-14] MEDS: Spironolactone 25 MG TAB PO SCH (07:57)
[2020-01-14] MEDS: Dexamethasone 4 mg/ml Vial SLOW IVP SCH (07:57)
[2020-01-14] MEDS: Enoxaparin Sodium 80 MG/0.8 ML SYRINGE SC SCH ×2 (07:58→20:15)
[2020-01-14] MEDS: Enoxaparin Sodium 60 MG/0.6 ML SYRINGE SC SCH ×2 (07:58→20:15)
[2020-01-14 08:18] LABS: ALT (SGPT) 30 U/L (8-55); AST (SGOT) 48 U/L (5-34); Albumin 3.1 g/dL (3.5-5.0); Alkaline Phosphatase 89 U/L (40-110); Bilirubin, Direct 0.3 mg/dL (0.1-0.3); Bilirubin, Total 0.4 mg/dL (0.2-1.2); Protein, Total 6.4 g/dL (6.0-8.3)
--- NOTE | 2020-01-14 08:49 | RAD ---
EXAM: Single view of the chest HISTORY: Covid pneumonia COMPARISON: 01/11/2020 FINDINGS: Single view of the chest shows an enlarged but stable cardiomediastinal silhouette. Diffus e multifocal mixed infiltrates are seen in the lungs. There is no evidence of consolidation, mass, or pleural effusion. The bones are unremarkable IMPRESSION: Stable multifocal pneumonia
--- NOTE | 2020-01-14 18:22 | PRG ---
DATE OF SERVICE: 01/14/2020 Please see the note from Dr. Jose for which I agree. This is a 54-year-old paraplegic with COVID positivity, who comes in and is fairly stable actually. He is on steroids and antivirals, but keeping his oxygen level fairly well controlled on a high-flow oxygen and eating okay and no other major complaints today. So, seems to be going in the right direction, although, obviously numerous risk factors for worsening status, but so far doing okay. Job ID: [id number]
[2020-01-15 06:37] LABS: ALT (SGPT) 37 U/L (8-55); AST (SGOT) 75 U/L (5-34); Albumin 3.2 g/dL (3.5-5.0); Alkaline Phosphatase 85 U/L (40-110); Anion Gap 12 mmol/L (10-20); BUN (Urea Nitrogen) 13 mg/dL (8.4-25.7); Bilirubin, Total 0.3 mg/dL (0.2-1.2); Calc. Creatinine Clearance 266 mL/min (70-130); Calcium 8.3 mg/dL (7.8-10.44); Carbon Dioxide 35 mmol/L (22-29); Chloride 92 mmol/L (98-107); Estimated GFR-MDRD Greater than 90; Globulin 3.4 g/dL (2.4-3.5); Glucose 117 mg/dL (70-105); Potassium 3.5 mmol/L (3.5-5.1); Protein, Total 6.6 g/dL (6.0-8.3); Sodium 135 mmol/L (136-145)
--- NOTE | 2020-01-15 07:51 | PDOC.FM ---
- Subjective Subjective: Doing well this morning. Is complaining of sleepiness this morning. - Objective MAR Reviewed: Yes Vital Signs & Weight: Vital Signs (12 hours) Temp Pulse Resp BP Pulse Ox 01/15/20 04:19 98 F 62 24 H 104/68 96 01/15/20 00:38 98.3 F 67 26 H 110/69 97 01/14/20 23:16 98.6 F 64 28 H 110/62 98 01/14/20 20:00 97.9 F 72 28 H 118/68 91 L Weight Admit Weight 145 kg Weight 145 kg I&O: 01/14/20 01/15/20 01/16/20 06:59 06:59 06:59 Intake Total 1440 550 Output Total 3490 1845 Balance -8143 -2485 Result Diagrams: 01/12/20 05:07 01/15/20 05:57 Phys Exam - Physical Examination Constitutional: NAD HEENT: PERRLA, moist MMs Neck: supple Respiratory: no wheezing, no rales, no rhonchi, clear to auscultation bilateral Cardiovascular: RRR, no significant murmur Gastrointestinal: soft, non-tender Musculoskeletal: no edema, pulses present Neurological: non-focal Psychiatric: normal affect, A&O x 3 Skin: no rash, normal turgor Dx/Plan (1) COVID-19 Code(s): U07.1 - COVID-19 Status: Acute (2) Pneumonia Code(s): J18.9 - PNEUMONIA, UNSPECIFIED ORGANISM Status: Acute (3) Acute respiratory failure with hypoxia Code(s): J96.01 - ACUTE RESPIRATORY FAILURE WITH HYPOXIA Status: Acute (4) Diabetes mellitus Code(s): E11.9 - TYPE 2 DIABETES MELLITUS WITHOUT COMPLICATIONS Status: Acute (5) Physical deconditioning Code(s): R53.81 - OTHER MALAISE Status: Acute (6) GERD (gastroesophageal reflux disease) Code(s): K21.9 - GASTRO-ESOPHAGEAL REFLUX DISEASE WITHOUT ESOPHAGITIS Status: Chronic (7) Hypertension Code(s): I10 - ESSENTIAL (PRIMARY) HYPERTENSION Status: Chronic Qualifiers: Hypertension type: essential hypertension Qualified Code(s): I10 - Essential (primary) hypertension (8) Morbid obesity with BMI of 40.0-44.9, adult Code(s): E66.01 - MORBID (SEVERE) OBESITY DUE TO EXCESS CALORIES; Z68.41 - BODY MASS INDEX (BMI) 40.0-44.9, ADULT Status: Chronic (9) Neurogenic bladder Code(s): N31.9 - NEUROMUSCULAR DYSFUNCTION OF BLADDER, UNSPECIFIED Status: Chronic (10) Paraplegia Code(s): G82.20 - PARAPLEGIA, UNSPECIFIED Status: Chronic (11) Suprapubic catheter Code(s): Z93.59 - OTHER CYSTOSTOMY STATUS Status: Chronic (12) Venous insufficiency of both lower extremities Code(s): I87.2 - VENOUS INSUFFICIENCY (CHRONIC) (PERIPHERAL) Status: Chronic - Plan Plan: Acute hypoxic respiratory failure 2/ COVID 19 Pneumonia - Positive result from [facility], Hospital swab positive. -Satting well on HFNC -Dexamthasone 6mg IV q day. -Consulted ID, Remdesivir (01/11 x 5 days) -[X] Cefepime (01/10) Diarrhea -Likely related to COVID 19. -C Diff negative DM II -patient on oral therapy. -continue home medications, SSI, and hypoglycemia protocol Prolonged QT interval, resolved -Transferred to medical floor. No longer needs telemetry. Neurogenic bladder -SP Catheter changed 01/11. Continue oxybutynin 10mg daily. -Continue home medications HTN -Continue lasix and spironolactone. -Patient does not have documented history of HF. Continue home prn medications Dispo: Stable, inpatient. Code: FULL. Discussed in detail with patient, that if COVID + and he declines he would like all resuscitative measures including intubation. PCP: Felipe VTE ppx: [facility] ppx: Not indicated.
[2020-01-15] MEDS: Oxybutynin ER 5 MG TAB PO SCH (08:39)
[2020-01-15] MEDS: Gabapentin 300 MG CAP PO SCH ×3 (08:41→21:12)
[2020-01-15] MEDS: Citalopram 20 MG TAB PO SCH (08:42)
[2020-01-15] MEDS: Spironolactone 25 MG TAB PO SCH (08:42)
[2020-01-15] MEDS: Saccharomyces boulardii 250 MG CAP PO SCH (08:42)
[2020-01-15] MEDS: Lubiprostone 8 MCG CAP PO SCH ×2 (08:42→21:15)
[2020-01-15] MEDS: Furosemide 80 MG TAB PO SCH (08:42)
[2020-01-15] MEDS: metFORMIN 500 MG TAB PO SCH ×2 (08:42→21:12)
[2020-01-15] MEDS: Cyclobenzaprine 10 MG TAB PO SCH ×3 (08:42→21:12)
[2020-01-15] MEDS: Dexamethasone 4 mg/ml Vial SLOW IVP SCH (08:43)
[2020-01-15] MEDS: Potassium Chloride 10 MEQ TAB PO SCH (08:43)
[2020-01-15] MEDS: Enoxaparin Sodium 80 MG/0.8 ML SYRINGE SC SCH ×2 (10:32→21:13)
[2020-01-15] MEDS: Enoxaparin Sodium 60 MG/0.6 ML SYRINGE SC SCH ×2 (10:32→21:13)
[2020-01-15] MEDS: HumaLOG 300 UNITS/3 ML VIAL SC PRN ×2 (12:50→17:30)
--- NOTE | 2020-01-15 16:24 | PRG ---
DATE OF SERVICE: 01/15/2020 Please see note from Dr. Jose, for which I agree. The patient was seen, evaluated, discussed, and examined with the residents at bedside. COVID positive paraplegic. Actually doing really better. Oxygen level is good on high-flow nasal cannula O2. He receiving IV steroids as well as antivirals and is progressing well and is continuing other home medicines as well. No other complaints and certainly very reassuring that he is improving, but will be monitored closely. Job ID: [id number]
[2020-01-16 06:15] LABS: ALT (SGPT) 41 U/L (8-55); AST (SGOT) 66 U/L (5-34); Albumin 3.3 g/dL (3.5-5.0); Alkaline Phosphatase 90 U/L (40-110); BUN (Urea Nitrogen) 12 mg/dL (8.4-25.7); Bilirubin, Total 0.3 mg/dL (0.2-1.2); Calc. Creatinine Clearance 231 mL/min (70-130); Calcium 9.1 mg/dL (7.8-10.44); Estimated GFR-MDRD Greater than 90; Globulin 3.9 g/dL (2.4-3.5); Glucose 158 mg/dL (70-105); Protein, Total 7.2 g/dL (6.0-8.3)
[2020-01-16 06:24] LABS: Chloride 91 mmol/L (98-107); Potassium 4.2 mmol/L (3.5-5.1); Sodium 136 mmol/L (136-145)
[2020-01-16 06:27] LABS: Anion Gap 16 mmol/L (10-20); Carbon Dioxide 33 mmol/L (22-29)
--- NOTE | 2020-01-16 07:00 | PDOC.FM ---
- Subjective Subjective: Doing well this morning. No concerns or complaints.. - Objective MAR Reviewed: Yes Vital Signs & Weight: Vital Signs (12 hours) Temp Pulse Resp BP Pulse Ox 01/16/20 06:30 97.7 F 60 18 115/65 98 01/16/20 03:51 100 01/16/20 01:20 98.0 F 61 19 112/71 100 01/15/20 21:18 98 01/15/20 21:15 97.6 F 63 19 101/61 98 Weight Admit Weight 145 kg Weight 145 kg I&O: 01/15/20 01/16/20 01/17/20 06:59 06:59 06:59 Intake Total 550 1290 Output Total 4171 1650 Balance -3625 -360 Result Diagrams: 01/12/20 05:07 01/16/20 05:13 Phys Exam - Physical Examination Constitutional: NAD HEENT: PERRLA, moist MMs Neck: supple Respiratory: no wheezing, no rales, no rhonchi, clear to auscultation bilateral Cardiovascular: RRR, no significant murmur Gastrointestinal: soft, non-tender Musculoskeletal: no edema Paraplegic Psychiatric: normal affect, A&O x 3 Skin: no rash, normal turgor Dx/Plan (1) COVID-19 Code(s): U07.1 - COVID-19 Status: Acute (2) Pneumonia Code(s): J18.9 - PNEUMONIA, UNSPECIFIED ORGANISM Status: Acute (3) Acute respiratory failure with hypoxia Code(s): J96.01 - ACUTE RESPIRATORY FAILURE WITH HYPOXIA Status: Acute (4) Diabetes mellitus Code(s): E11.9 - TYPE 2 DIABETES MELLITUS WITHOUT COMPLICATIONS Status: Acute (5) Physical deconditioning Code(s): R53.81 - OTHER MALAISE Status: Acute (6) GERD (gastroesophageal reflux disease) Code(s): K21.9 - GASTRO-ESOPHAGEAL REFLUX DISEASE WITHOUT ESOPHAGITIS Status: Chronic (7) Hypertension Code(s): I10 - ESSENTIAL (PRIMARY) HYPERTENSION Status: Chronic Qualifiers: Hypertension type: essential hypertension Qualified Code(s): I10 - Essential (primary) hypertension (8) Morbid obesity with BMI of 40.0-44.9, adult Code(s): E66.01 - MORBID (SEVERE) OBESITY DUE TO EXCESS CALORIES; Z68.41 - BODY MASS INDEX (BMI) 40.0-44.9, ADULT Status: Chronic (9) Neurogenic bladder Code(s): N31.9 - NEUROMUSCULAR DYSFUNCTION OF BLADDER, UNSPECIFIED Status: Chronic (10) Paraplegia Code(s): G82.20 - PARAPLEGIA, UNSPECIFIED Status: Chronic (11) Suprapubic catheter Code(s): Z93.59 - OTHER CYSTOSTOMY STATUS Status: Chronic (12) Venous insufficiency of both lower extremities Code(s): I87.2 - VENOUS INSUFFICIENCY (CHRONIC) (PERIPHERAL) Status: Chronic - Plan Plan: Acute hypoxic respiratory failure 2/ COVID 19 Pneumonia - Positive result from group home, Hospital swab positive 01/10 -Satting well on HFNC -Dexamthasone 6mg IV q day. -Consulted ID, Remdesivir (01/11 x 5 days) -[X] Cefepime (01/10) Diarrhea, resolved -Likely related to COVID 19. -C Diff negative DM II -patient on oral therapy. -continue home medications, SSI, and hypoglycemia protocol Prolonged QT interval, resolved Neurogenic bladder -SP Catheter changed 01/11. Continue oxybutynin 10mg daily. -Continue home medications HTN -Continue lasix and spironolactone. -Patient does not have documented history of HF. Continue home prn medications Dispo: Stable, inpatient. Code: FULL. Discussed in detail with patient, that if COVID + and he declines he would like all resuscitative measures including intubation. PCP: Felipe VTE ppx: L[facility] GI ppx: Not indicated. Addendum - Attending - Attending Attestation Date/Time: 01/16/20 2530 I personally evaluated the patient and discussed the management with Dr. Jose. I agree with the History, Examination, Assessment and Plan documented above with any addition or exceptions noted below. Patient stable. Completing Remdesevir today. Continue steroids. Wean off HFNC as tolerated.
[2020-01-16] MEDS: Gabapentin 300 MG CAP PO SCH ×3 (08:42→20:08)
[2020-01-16] MEDS: Saccharomyces boulardii 250 MG CAP PO SCH (08:42)
[2020-01-16] MEDS: Furosemide 80 MG TAB PO SCH (08:42)
[2020-01-16] MEDS: Cyclobenzaprine 10 MG TAB PO SCH ×3 (08:42→20:08)
[2020-01-16] MEDS: Citalopram 20 MG TAB PO SCH (08:42)
[2020-01-16] MEDS: metFORMIN 500 MG TAB PO SCH ×2 (08:42→20:09)
[2020-01-16] MEDS: Lubiprostone 8 MCG CAP PO SCH ×2 (08:42→20:07)
[2020-01-16] MEDS: Potassium Chloride 10 MEQ TAB PO SCH (08:42)
[2020-01-16] MEDS: Enoxaparin Sodium 80 MG/0.8 ML SYRINGE SC SCH ×2 (08:43→20:10)
[2020-01-16] MEDS: Dexamethasone 4 mg/ml Vial SLOW IVP SCH (08:43)
[2020-01-16] MEDS: Enoxaparin Sodium 60 MG/0.6 ML SYRINGE SC SCH ×2 (08:43→20:08)
[2020-01-16] MEDS: Spironolactone 25 MG TAB PO SCH (08:43)
[2020-01-16] MEDS: Oxybutynin ER 5 MG TAB PO SCH (08:44)
[2020-01-16] MEDS: HumaLOG 300 UNITS/3 ML VIAL SC PRN ×3 (11:11→22:08)
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
[2020-01-17 06:17] LABS: #Eosinphils 0.1 thou/uL (0.0-0.7); #Monocytes 0.7 thou/uL (0.11-0.59); #Neutrophils 7.7 thou/uL (1.40-6.50); %Eosinophils 1.2 % (0.0-10.0); %Lymphocytes 18.9 % (21.0-51.0); %Monocytes 6.3 % (0.0-10.0); %Neutrophils 73.6 % (42.0-75.0); Hemoglobin 12.4 g/dL (14.0-18.0); Mean Corpuscular HGB CONC 30.5 g/dL (32.0-36.0); Mean Corpuscular Hemoglobin 26.6 pg (27.0-31.0); Mean Corpuscular Volume 87.3 fL (78.0-98.0); Platelet Count 431 thou/uL (130-400); Red Blood Cell (RBC) Count 4.65 mill/uL (4.70-6.10); White Blood Cell (WBC) Count 10.5 thou/uL (4.8-10.8)
[2020-01-17 06:33] LABS: ALT (SGPT) 43 U/L (8-55); AST (SGOT) 61 U/L (5-34); Albumin 3.4 g/dL (3.5-5.0); Alkaline Phosphatase 79 U/L (40-110); Anion Gap 12 mmol/L (10-20); BUN (Urea Nitrogen) 13 mg/dL (8.4-25.7); Bilirubin, Total 0.3 mg/dL (0.2-1.2); Calc. Creatinine Clearance 247 mL/min (70-130); Calcium 8.9 mg/dL (7.8-10.44); Carbon Dioxide 33 mmol/L (22-29); Chloride 94 mmol/L (98-107); Estimated GFR-MDRD Greater than 90; Globulin 3.6 g/dL (2.4-3.5); Glucose 116 mg/dL (70-105); Potassium 4.1 mmol/L (3.5-5.1); Sodium 135 mmol/L (136-145)
--- NOTE | 2020-01-17 08:11 | PDOC.FM ---
- Subjective Subjective: Doing well this morning. States he is breathing comfortably. - Objective MAR Reviewed: Yes Vital Signs & Weight: Weight Admit Weight 145 kg Weight 145 kg I&O: 01/16/20 01/17/20 01/18/20 06:59 06:59 06:59 Intake Total 1590 970 Output Total 3500 2586 155 Balance -1910 -655 -800 Result Diagrams: 01/17/20 06:00 01/17/20 06:00 Phys Exam - Physical Examination Constitutional: NAD HEENT: moist MMs Neck: supple Respiratory: no wheezing, no rales, no rhonchi, clear to auscultation bilateral Cardiovascular: RRR, no significant murmur Gastrointestinal: soft, non-tender Musculoskeletal: pulses present Neurological: non-focal Paraplegic Psychiatric: normal affect Skin: no rash, normal turgor Dx/Plan (1) COVID-19 Code(s): U07.1 - COVID-19 Status: Acute (2) Pneumonia Code(s): J18.9 - PNEUMONIA, UNSPECIFIED ORGANISM Status: Acute (3) Acute respiratory failure with hypoxia Code(s): J96.01 - ACUTE RESPIRATORY FAILURE WITH HYPOXIA Status: Acute (4) Diabetes mellitus Code(s): E11.9 - TYPE 2 DIABETES MELLITUS WITHOUT COMPLICATIONS Status: Acute (5) Physical deconditioning Code(s): R53.81 - OTHER MALAISE Status: Acute (6) GERD (gastroesophageal reflux disease) Code(s): K21.9 - GASTRO-ESOPHAGEAL REFLUX DISEASE WITHOUT ESOPHAGITIS Status: Chronic (7) Hypertension Code(s): I10 - ESSENTIAL (PRIMARY) HYPERTENSION Status: Chronic Qualifiers: Hypertension type: essential hypertension Qualified Code(s): I10 - Essential (primary) hypertension (8) Morbid obesity with BMI of 40.0-44.9, adult Code(s): E66.01 - MORBID (SEVERE) OBESITY DUE TO EXCESS CALORIES; Z68.41 - BODY MASS INDEX (BMI) 40.0-44.9, ADULT Status: Chronic (9) Neurogenic bladder Code(s): N31.9 - NEUROMUSCULAR DYSFUNCTION OF BLADDER, UNSPECIFIED Status: Chronic (10) Paraplegia Code(s): G82.20 - PARAPLEGIA, UNSPECIFIED Status: Chronic (11) Suprapubic catheter Code(s): Z93.59 - OTHER CYSTOSTOMY STATUS Status: Chronic (12) Venous insufficiency of both lower extremities Code(s): I87.2 - VENOUS INSUFFICIENCY (CHRONIC) (PERIPHERAL) Status: Chronic - Plan Plan: Acute hypoxic respiratory failure 2/2 COVID 19 Pneumonia - Positive result from [facility], Hospital swab positive 01/10 -Satting well on NC -Dexamthasone 6mg IV q day (01/11-01/16) -Consulted ID, appreciate recommendations. -[X] Remdesivir (01/11 -01/15) -[X] Cefepime (01/10) Diarrhea, resolved DM II -patient on oral therapy. -continue home medications, SSI, and hypoglycemia protocol Prolonged QT interval, resolved Neurogenic bladder -SP Catheter changed 01/11. Continue oxybutynin 10mg daily. -Continue home medications HTN -Continue lasix and spironolactone. -Patient does not have documented history of HF. Continue home prn medications Dispo: Will discuss with pt's primary care physician at [facility] to see if he is able to go home today. He is stable for d/c. Code: FULL. Discussed in detail with patient, that if COVID + and he declines he would like all resuscitative measures including intubation. PCP: Felipe VTE ppx: Th Lovenox GI ppx: Not indicated. Addendum - Attending - Attending Attestation Date/Time: 01/17/20 8239 I personally evaluated the patient and discussed the management with Dr. Jose. I agree with the History, Examination, Assessment and Plan documented above with any addition or exceptions noted below. Patient doing well. On NC and down to 2L. No respiratory complaints. Stable for dc back to nursing facility.
[2020-01-17] MEDS: Dexamethasone 4 mg/ml Vial SLOW IVP SCH (09:57)
[2020-01-17] MEDS: Gabapentin 300 MG CAP PO SCH (09:57)
[2020-01-17] MEDS: Potassium Chloride 10 MEQ TAB PO SCH (09:58)
[2020-01-17] MEDS: Lubiprostone 8 MCG CAP PO SCH (09:58)
[2020-01-17] MEDS: Saccharomyces boulardii 250 MG CAP PO SCH (09:58)
[2020-01-17] MEDS: Spironolactone 25 MG TAB PO SCH (09:58)
[2020-01-17] MEDS: Furosemide 80 MG TAB PO SCH (09:58)
[2020-01-17] MEDS: Citalopram 20 MG TAB PO SCH (09:58)
[2020-01-17] MEDS: Cyclobenzaprine 10 MG TAB PO SCH (09:58)
[2020-01-17] MEDS: Enoxaparin Sodium 80 MG/0.8 ML SYRINGE SC SCH (10:11)
[2020-01-17] MEDS: Enoxaparin Sodium 60 MG/0.6 ML SYRINGE SC SCH (10:12)
[2020-01-17] MEDS: metFORMIN 500 MG TAB PO SCH (10:12)
[2020-01-17 11:00] VITALS: TEMP 98.7
[2020-01-17 11:56] VITALS: BP 99/64
[2020-01-17] MEDS ORDERED: Enoxaparin Sodium 40 MG/0.4 ML SYRINGE SC SCH ×2 (12:30→21:00)
[2020-01-17] MEDS ORDERED: Enoxaparin Sodium 80 MG/0.8 ML SYRINGE SC SCH (21:00)
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
== END 2020-01-17 13:53 | DRG 177 ==
LOC: ERS 10:16 → 2SW 12:27 → OBSVTOIN 12:27 → T4-B 01-15 00:31
PROVIDERS: ADMIT Family Medicine; ATTEND Family Medicine
PROC: 8E0ZXY6 Isolation (ICD-10-PCS; principal; 2020-01-11)
DX: U07.1 COVID-19 (principal); J12.89 Other viral pneumonia; J96.01 Acute respiratory failure with hypoxia; G82.50 Quadriplegia, unspecified; E87.2 Acidosis; Z68.41 Body mass index [BMI] 40.0-44.9, adult; E11.9 Type 2 diabetes mellitus without complications; K21.9 Gastro-esophageal reflux disease without esophagitis; I10 Essential (primary) hypertension; E66.01 Morbid (severe) obesity due to excess calories; N31.9 Neuromuscular dysfunction of bladder, unspecified; R19.7 Diarrhea, unspecified; R94.31 Abnormal electrocardiogram [ECG] [EKG]; I87.2 Venous insufficiency (chronic) (peripheral); Z79.899 Other long term (current) drug therapy; Z79.84 Long term (current) use of oral hypoglycemic drugs; Z87.891 Personal history of nicotine dependence
CPT/HCPCS: 36415; 36416; 71045; 80048; 80053; 80076; 82728; 82805; 83605; 83615; 83880; 84145; 84484; 85025; 85379; 85520; 86140; 87040; 87324; 87449; 87635; 93005; 93010; 96361; 96372; 96374; J0692; J1100; J1650; J1940; J3490; U0003

== ENCOUNTER 2020-12-30 03:37 | Emergency (ER) | payer MEDICARE, MEDICAID ==
[2020-12-30 04:46] LABS: #Eosinphils 0.5 thou/uL (0.0-0.7); #Lymphocytes 2.3 thou/uL (1.20-3.40); #Neutrophils 10.3 thou/uL (1.40-6.50); %Basophils 0.3 % (0.0-1.0); %Eosinophils 3.6 % (0.0-10.0); %Lymphocytes 16.4 % (21.0-51.0); %Monocytes 7.2 % (0.0-10.0); %Neutrophils 72.5 % (42.0-75.0); Hemoglobin 13.3 g/dL (14.0-18.0); Mean Corpuscular HGB CONC 32.5 g/dL (32.0-36.0); Mean Corpuscular Hemoglobin 26.9 pg (27.0-31.0); Mean Corpuscular Volume 82.8 fL (78.0-98.0); Mean Platelet Volume 6.1 fL (7.4-10.4); Platelet Count 341 thou/uL (130-400); RBC Distribution Width 12.4 % (11.5-14.5); Red Blood Cell (RBC) Count 4.95 mill/uL (4.70-6.10); White Blood Cell (WBC) Count 14.2 thou/uL (4.8-10.8)
[2020-12-30 05:02] LABS: ALT (SGPT) 18 U/L (8-55); AST (SGOT) 20 U/L (5-34); Albumin 4.1 g/dL (3.5-5.0); Alkaline Phosphatase 112 U/L (40-110); Anion Gap 17 mmol/L (10-20); BUN (Urea Nitrogen) 19 mg/dL (8.4-25.7); Bilirubin, Total 0.4 mg/dL (0.2-1.2); Calc. Creatinine Clearance 0 mL/min (70-130); Calcium 9.2 mg/dL (7.8-10.44); Carbon Dioxide 24 mmol/L (22-29); Chloride 97 mmol/L (98-107); Globulin 3.6 g/dL (2.4-3.5); Glucose 169 mg/dL (70-105); Lipase 68 U/L (8-78); Potassium 3.8 mmol/L (3.5-5.1); Protein, Total 7.7 g/dL (6.0-8.3); Sodium 134 mmol/L (136-145)
[2020-12-30 05:10] LABS: Bacteria/HPF 4+ HPF (None Seen); Bilirubin Negative (Negative); Blood, Urine 2+ (Negative); Clarity Turbid (Clear); Glucose, Urine (Dipstick) Normal (Negative); Ketone, Urine Negative (Negative); Leukocyte 500 Leu/uL (Negative); Nitrite 2+ (Negative); Protein, Urine (Dipstick) 30 mg/dL (Neg-Trace); RBC/HPF 21-50 HPF (0-3); Specific Gravity, Urine 1.021 (1.002-1.036); Squamous Epithelial 0-3 HPF (0-3); Urobilinogen Normal mg/dL (Less than 2); WBC/HPF Greater than 50 HPF (0-3)
[2020-12-30] MEDS ORDERED: Ondansetron PF 4 MG/2 ML Vial ONE (05:27)
[2020-12-30] MEDS ORDERED: cefTRIAXone\\ROCEPHIN 2 GM VIAL ONE (05:30)
[2020-12-30] MEDS ORDERED: Iopamidol-370 76% 500 ML 1 ML ONE (09:55)
== END 2020-12-30 08:49 | disposition home or self-care (01) ==
LOC: ERS 03:37
DX: K56.41 Fecal impaction (principal); N39.0 Urinary tract infection, site not specified; E66.9 Obesity, unspecified; D51.0 Vitamin B12 deficiency anemia due to intrinsic factor deficiency; K21.9 Gastro-esophageal reflux disease without esophagitis; G47.00 Insomnia, unspecified; G83.10 Monoplegia of lower limb affecting unspecified side; Z87.19 Personal history of other diseases of the digestive system; Z79.899 Other long term (current) drug therapy; Z79.84 Long term (current) use of oral hypoglycemic drugs
CPT/HCPCS: 36415; 74177; 80053; 81003; 81015; 83690; 85025; 87077; 87086; 87186; 96365; 96375; J0696; J2405; Q9967